=== PATIENT | male | born 1985 | race Caucasian/White ===

== ENCOUNTER 2023-11-25 10:48 | Outpatient (CLI) | payer OTHER, SELFPAY | END 2023-11-25 10:49 | disposition home or self-care (01) | LOC: NFLDUCREF 10:48 | PROVIDERS: PCP Physician Assistant; Visit Provider Physician Assistant | DX: L03.115 Cellulitis of right lower limb (principal) | CPT/HCPCS: 87070; 87186 ==

== ENCOUNTER 2024-10-11 13:37 | Emergency (ER) | payer OTHER, SELFPAY ==
--- OUTSIDE RECORDS SUMMARY | 2024-10-11 13:39 | XMS_ITS | Encounter Summary ---
Author Organization [place] Address [facility] [place] [address] Care Team Providers Care Editor In Chief Name Role Phone No Ref-Primary, Physician Primary Care Provider Encounter Details Date Type Department Care Team (Latest Contact Info) Description 09/12/2024 Travel Social History Tobacco Use Types Packs/Day Years Used Date Smoking Tobacco: Never Assessed Adolescent Education Answer Date Record ed Getting School Help Needed Not on file 02/04 Food Insecurity Answer Date Recorded Within the past 12 months, d id you worry that your food would run out before you got money to buy more? No 09/12/2024 Within the past 12 months, d id the food you bought just not last and you didn t have money to get more? No 09/12/2024 Housing Stability Answer Date Recorded Do you have housing? (Housin g is defined as stable permanent housing and does not include staying ouside in a car, in a tent, in an abandoned building, in an overnight retirement, or couch-surfing.) Yes 09/12/2024 Are you worried about losing your housing? No 09/12/2024 Financial Resource Strain Answer Date R ecorded Within the past 12 months, h ave you or your family members you live with been unable to get utilities (heat, electricity) when it was really needed? Yes 09/12/2024 Transportation Needs Answer Date Record ed Within the past 12 months, h as lack of transportation kept you from medical appointments, getting your medicines, non-medical meetings or appointments, work, or from getting things that you need? No 09/12/2024 Interpersonal Safety Answer Date Record ed Do you feel physically and e motionally safe where you currently live? Yes 09/12/2024 Within the past 12 months, h ave you been hit, slapped, kicked or otherwise physically hurt by someone? No 09/12/2024 Within the past 12 months, h ave you been humiliated or emotionally abused in other ways by your partner or ex-partner? No 09/12/2024 Sex and Gender Information Value Date Recorded Sex Assigned at Not on file Legal Sex Male 3:41 AM [employer] Gender Identity Not on file Sexual Orientation Not on file documented as of this encounter Plan of Treatment Not on file documented as of this encounter Visit Diagnoses Not on filedocumented in this encounter Additional Health Concerns Infection Onset Date Last Indicated Resolved Time Rule Out COVID-19 09/12/2024 09/12/2024 09/12/2024 2:23 PM [employer] Influenza 09/12/2024 09/12/2024 09/19/2024 11:4 1 PM [employer] documented as of this encounter Care Teams Editor In Chief Relationship Specialty Start Date End Date No Ref-Primary, Physician PCP - General 02/05/24 documented as of this encounter
--- OUTSIDE RECORDS SUMMARY | 2024-10-11 13:39 | XMS_ITS | Encounter Summary ---
Author Organization [facility] Address [address] [place] [id number] Care Team Providers Care Journeyman Lineman Name Role Phone No Ref-Primary, Physician Primary Care Provider Reason for Visit * Reason Comments Shortness of Breath * Auth/Cert (Routine) Specialty Diagnoses / Procedures Referred By Toro t Referred To Contact Med Surg Diagnoses SOB (shortness of breath) Influenza A Hypoxia Community acquired bacterial pneumonia [facility] [address] [facility] [address] [place] [address] Phone: tel: fax: Referral ID Status Reason Start Date Expiration Date Visits Re quested Visits Authorized [id number] 1 1 Encounter Details Date Type Department Care Team (Late st Contact Info) Description 09/12/2024 1:46 PM MARBLE CUTTER - 09/13/2024 1:15 PM MARBLE CUTTER Emergency [facility] [place] [address] [facility] [address] [place] [address] Smita Calderon MD [facility] [address] [place], [place] [id number] Sinan Mcghee MD [address] [place], [place] [id number] Influenza A; Community acquired bacterial pneumonia; Hypoxia Discharge Disposition: Home or Self Care Social History Tobacco Use Types Packs/Day Years Used Date Smoking Tobacco: Never Assessed Adolescent Education Answer Date Record ed Getting School Help Needed Not on file 06/28 /2024 Food Insecurity Answer Date Recorded Within the past 12 months, d id you worry that your food would run out before you got money to buy more? No 09/12/2024 Within the past 12 months, d id the food you bought just not last and you didn t have money to get more? No 09/12/2024 Housing Stability Answer Date Recorded Do you have housing? (Cyrus gomez is defined as stable permanent housing and does not include staying ouside in a car, in a tent, in an abandoned building, in an overnight fci, or couch-surfing.) Yes 09/12/2024 Are you worried [...] on file Legal Sex Male 3:41 AM MARBLE CUTTER Gender Identity Not on file Sexual Orientation Not on file documented as of this encounter Last Filed Vital Signs Vital Sign Reading Time Taken Comments Blood Pressure 134/88 09/13/2024 6:17 AM MARBLE CUTTER Pulse 74 09/13/2024 6:17 AM MARBLE CUTTER Temperature 37 C (98.6 F) 09/13/2024 6:17 AM MARBLE CUTTER Respiratory Rate 18 09/13/2024 6:17 AM MARBLE CUTTER Oxygen Saturation 95% 09/13/2024 6:17 AM MARBLE CUTTER Inhaled Oxygen Concentration - - Weight 115.8 kg (255 lb 4.7 oz) 09/13/2024 6:22 AM MARBLE CUTTER Height 188 cm (6' 2) 09/12/2024 1:18 PM MARBLE CUTTER Body Mass Index 32.78 09/12/2024 1:18 PM MARBLE CUTTER documented in this encounter Discharge Summaries * Sinan Mcghee MD - 09/13/2024 10:38 AM CST Images from the original note were not included. [facility] Discharge Summary Hospitalist Date of Admission: 09/12/2024 Date of Discharge: 09/13/2024 Discharging Provider: Sinan Mcghee MD Date of Service (when I saw the patient): 09/13/24 Discharge Diagnoses #Mildly acute hypoxemic respiratory failure secondary to influenza A and probable superimposed CAP #Obesity Hospital Course Ronny Munguia is a 39 year old male with a past medical history of obesity who presents with shortness of breath. #Acute hypoxemic respiratory failure secondary to influenza A and probable superimposed CAP: Patient tells me he started to have shortness of breath, cough, myalgias and fevers on 09/08. He tells me his children with whom he lives had similar symptoms. He denies any chest pain. No nausea vomiting. He denies any underlying lung disease. He is not on any prescription medications. He denies any nausea or vomiting. No diarrhea. He has been eating and drinking. He denies any leg swelling. He did not get his flu shot. -ED, patient with low-grade fever of 99.1, tachycardic to 103 and normotensive to mildly hypertensive. Needing 2 L via nasal cannula to maintain saturations. His CBC did not show leukocytosis. BMP unremarkable. High-sensitivity troponin negative x 2. Lactic acid within normal limits. VBG 7.44/45. His influenza A was positive. Chest x-ray showed patchy infiltrates in the mid and lower lungs bilaterally typical of bilateral pneumonia. He was given ceftriaxone, azithromycin, Tamiflu along with methylprednisolone, DuoNeb and IV magnesium. -His D-dimer was positive at 0.75. CT PE negative for PE but did show bilateral pneumonia. Procal equivocal. -Pt treated with tamiflu and started on ceftr/azithro. He improved symptomatically. He ambulated around room without issues. He did not have high fevers or worsening hypoxemia. He was weaned to room air. -He will discharge on course of tamiflu. Continue ceftin and azithro on discharge. No wheezing on exam. Prn albuterol ordered on discharge for SOB but held off on steroids as no asthma, COPD at baseline. Cough medicines also prescribed. -Follow up with PCP. Return instructions provided. -Advised to stop vaping. #Obesity: Complicates cares Sinan Mcghee MD Pending Results These results will be followed up by Hospital medicine Unresulted Labs Ordered in the Past 30 Days of this Admission Date and Time Order Name Status Description 09/12/2024 3:11 PM Blood Culture Peripheral Blood Preliminary 09/12/2024 3:11 PM Blood Culture Peripheral Blood Preliminary Code Status Full Code Primary Care Physician Physician No Ref-Primary Constitutional: Young male, obese. No tachypnea today. Comfortable. HEENT: Normocephalic, MMM, no elevation of JVD noted Respiratory: No tachypnea. No wheeze. Some coarseness at bilateral bases. Cardiovascular: Regular, non-tachy. No murmur GI: Obese, BS+, NT, ND, no rebound or guarding Lymph/Hematologic: No bruising. No cervical LAD Skin: No rash Musculoskeletal: Nl Tone, No edema noted Neurologic: A&Ox3, Answers appropriately. CNII-XII intact. Moves all extremities. No tremor Psychiatric: Calm Discharge Disposition Discharged to home Condition at discharge: Stable Consultations This Hospital Stay None Time Spent on this Encounter I, Sinan Mcghee MD, personally saw the patient today and spent greater than 30 minutes discharging this patient. Discharge Orders Reason for your hospital stay You were hospitalized for influenza and probable bacterial pneumonia. You will complete course of tamiflu and antibiotics on discharge. I did prescribe as needed albuterol inhaler along with cough medicines as well. You should follow up with your PCP next week. Return to ED with worsening shortnessof breath, weakness, lightheadedness, chest pain. Follow-up and recommended labs and tests Follow up with primary care provider, Physician No Ref-Primary, within 7 days for hospital follow- up. The following labs/tests are recommended: CBC and BMP. Activity Your activity upon discharge: activity as tolerated Full Code Diet Follow this diet upon discharge: Current Diet:Orders Placed This Encounter Combination Diet Regular Diet Adult Discharge Medications Current Discharge Medication List START taking these medications Details albuterol (PROAIR HFA/PROVENTIL HFA/VENTOLIN HFA) 108 (90 Base) MCG/ACT inhaler Inhale 2 puffs intothe lungs every 6 hours as needed for shortness of breath, wheezing or cough. Qty: 18 g, Refills: 0 Comments: Pharmacy may dispense brand covered by insurance (Proair, or proventil or ventolin or generic albuterol inhaler) Associated Diagnoses: Influenza A azithromycin (ZITHROMAX) 250 MG tablet Take 1 tablet (250 mg) by mouth daily for 4 days. Qty: 4 tablet, Refills: 0 Associated Diagnoses: Community acquired bacterial pneumonia benzonatate (TESSALON) 100 MG capsule Take 1 capsule (100 mg) by mouth 3 times daily as needed for cough. Qty: 14 capsule, Refills: 0 Associated Diagnoses: Influenza A cefuroxime (CEFTIN) 500 MG tablet Take 1 tablet (500 mg) by mouth 2 times daily for 7 days. Qty: 14 tablet, Refills: 0 Associated Diagnoses: Community acquired bacterial pneumonia guaiFENesin (MUCINEX) 600 MG 12 hr tablet Take 1 tablet (600 mg) by mouth 2 times daily for 7 days. Qty: 14 tablet, Refills: 0 Associated Diagnoses: Influenza A CONTINUE these medications which have CHANGED Details oseltamivir (TAMIFLU) 75 MG capsule Take 1 capsule (75 mg) by mouth 2 times daily for 4 days. Qty: 8 capsule, Refills: 0 Associated Diagnoses: Influenza A Allergies No Known Allergies Data Most Recent 3 CBC's: Recent Labs Lab Test 09/13/24 0737 09/12/24 1411 WBC 6.2 6.7 HGB 13.5 14.5 MCV 77* 77* PLT 303 256 Most Recent 3 BMP's: Recent Labs Lab Test 09/13/24 0737 09/12/24 1411 NA 135 135 POTASSIUM 3.8 4.0 CHLORIDE 97* 94* CO2 23 27 BUN 15.2 15.1 CR 0.75 0.95 ANIONGAP 15 14 ARNOLDO 8.7* 8.8 GLC 129* 122* Most Recent 2 LFT's:No lab results found. Most Recent INR's and Anticoagulation Dosing History: Anticoagulation Dose History No data to display Most Recent 3 Troponin's:No lab results found. Most Recent Cholesterol Panel:No lab results found. Most Recent 6 Bacteria Isolates From Any Culture (See EPIC Reports for Culture Details):No lab results found. Most Recent TSH, T4 and A1c Labs:No lab results found. LE CUTTER documented in this encounter Medications at Time of Discharge albuterol (PROAIR HFA/PROVENTIL HFA/VENTOLIN HFA) 108 (90 Base) MCG/ACT inhalerIndicatio ns:Influenza A Inhale 2 puffs into the lungs every 6 hours as needed for shortness of breath, wheezing or cough. 18 g 09/13/2024 azithromycin (ZITHROMAX) 250 MG tabletIndication s:Community Acquired Pneumonia Take 1 tablet (250 mg) by mouth daily for 4 days. 4 tablet 09/13/2024 5 benzonatate (TESSALON) 100 MG capsuleIndicatio ns:Influenza A Take 1 capsule (100 mg) by mouth 3 times daily as needed for cough. 14 capsule 09/13/2024 5 cefuroxime (CEFTIN) 500 MG tabletIndication s:Community acquired bacterial pneumonia Take 1 tablet (500 mg) by mouth 2 times daily for 7 days. 14 tablet 09/13/2024 5 guaiFENesin (MUCINEX) 600 MG 12 hr tabletIndication s:Influenza A Take 1 tablet (600 mg) by mouth 2 times daily for 7 days. 14 tablet 09/13/2024 5 oseltamivir (TAMIFLU) 75 MG capsuleIndicatio ns:Influenza A Take 1 capsule (75 mg) by mouth 2 times daily for 4 days. 8 capsule 09/13/2024 5 documented as of this encounter Progress Notes * Dena Chanel RN - 09/12/2024 9:32 PM CST 09/12/242058 Skin Skin WDL X;moisture;integrity;temperature;color Skin Color redness blanchable Skin Temperature cold Skin Integrity peeling/scaling;cracked;scab Cracked Right;Fore Arm Peeling Right;Left;Heel Redness blanchable location Right;Left;Foot Scab Other (Comment) (scattered) Device Skin Interventions Taken No adjustments needed Admitted/transferred from: 2 RN full skin assessment completed by Dena Chanel RN and Cam Cordova . Skin assessment finding: issues found Redness on feet, dryness and peeling on feet, scattered scapson legs Interventions/actions: other None Will continue to monitor. LE CUTTER documented in this encounter H&P Notes * Sinan Mcghee MD - 09/12/2024 4:00 PM CST [facility] History and Physical Hospitalist Date of Admission: 09/12/2024 Assessment & Plan Ronny Munguia is a 39 year old male with a past medical history of obesity who presents with shortness of breath. #Acute hypoxemic respiratory failure secondary to influenza A and probable superimposed CAP: Patient tells me he started to have shortness of breath, cough, myalgias and fevers on 09/08. He tells me his children with whom he lives had similar symptoms. He denies any chest pain. No nausea vomiting. He denies any underlying lung disease. He is not on any prescription medications. He denies any nausea or vomiting. No diarrhea. He has been eating and drinking. He denies any leg swelling. -ED, patient with low-grade fever of 99.1, tachycardic to 103 and normotensive to mildly hypertensive. Needing 2 L via nasal cannula to maintain saturations. His CBC did not show leukocytosis. BMP unremarkable. High-sensitivity troponin negative x 2. Lactic acid within normal limits. VBG 7.44/45. His influenza A was positive. Chest x-ray showed patchy infiltrates in the mid and lower lungs bilaterally typical of bilateral pneumonia. He was given ceftriaxone, azithromycin, Tamiflu along with methylprednisolone, DuoNeb and IV magnesium. -His D-dimer was positive at 0.75. Follow up CT PE to r/o PE -Treat with tamiflu. -Continue ceftriaxone and azithro for now. Added on procal. -Duonebs prn. He does not have any clear wheezing on exam. Holding off on further steroids or scheduled nebs. #Obesity: Complicates cares DVT Prophylaxis: Pneumatic Compression Devices Code Status: Full Code Medically Ready for Discharge: Anticipated in 2-4 Days Sinan Mcghee MD Primary Care Physician Physician No Ref-Primary Chief Complaint SOB, cough History is obtained from the patient, patient's chart and d/w ER physician History of Present Illness Ronny Munguia is a 39 year old male with a past medical history of obesity who presents with shortness of breath. Patient tells me he started to have shortness of breath, cough, myalgias and fevers on 09/08. He tells me his children with whom he lives had similar symptoms. He denies any chest pain. No nausea vomiting. He denies any underlying lung disease. He is not on any prescription medications. He denies any nausea or vomiting. No diarrhea. He has been eating and drinking. He denies any leg swelling. In the ED, patient with low-grade fever of 99.1, tachycardic to 103 and normotensive to mildly hypertensive. Needing 2 L via nasal cannula to maintain saturations. His CBC did not show leukocytosis. BMP unremarkable. High- sensitivity troponin negative x 2. Lactic acid within normal limits. VBG 7.44/ 45. His influenza A was positive. Chest x-ray showed patchy infiltrates in the mid and lower lungs bilaterally typical of bilateral pneumonia. He was given ceftriaxone, azithromycin, Tamiflu along with methylprednisolone, DuoNeb and IV magnesium. Past Medical History Patient denies any medical history Past Surgical History Patient denies any surgeries Prior to Admission Medications None Allergies No Known Allergies Social History He is a non-smoker but does vape. Nondrinker. Lives at home with his 3 kids. Family History Reviewed-noncontributory Review of Systems The 10 point Review of Systems is negative other than noted in the HPI or here. Physical Exam Temp: 99.1 ??F (37.3 ??C) Temp src: Temporal BP: (!) 139/91 Pulse: 89 Resp: 20 SpO2: 94 % O2 Device: None (Room air) Oxygen Delivery: 2 LPM Vital Signs with Ranges Temp: [99.1 ??F (37.3 ??C)] 99.1 ??F (37.3 ??C) Pulse: [89-103] 89 Resp: [20-44] 20 BP: (139-153)/(91-100) 139/91 SpO2: [93 %-97 %] 94 % 271 lbs 6.18 oz Constitutional: Young male, obese. Mild tachypnea. He is conversational and appropriate. HEENT: Normocephalic, MMM, no elevation of JVD noted Respiratory: Mild tachypnea, somewhat coarse bilaterally at the bases. He has no wheezing. Cardiovascular: Tachycardic, regular, no murmur GI: Obese, BS+, NT, ND, no rebound or guarding Lymph/Hematologic: No bruising. No cervical LAD Skin: No rash Musculoskeletal: Nl Tone, No edema noted Neurologic: A&Ox3, Answers appropriately. CNII-XII intact. Moves all extremities. No tremor Psychiatric: Calm Data Data reviewed today: I personally reviewed Recent Labs Lab 09/12/24 1411 WBC 6.7 HGB 14.5 MCV 77* PLT 256 NA 135 POTASSIUM 4.0 CHLORIDE 94* CO2 27 BUN 15.1 CR 0.95 ANIONGAP 14 ARNOLDO 8.8 GLC 122* Recent Results (from the past 24 hours) XR Chest 2 Views Narrative EXAM: XR CHEST 2 VIEWS LOCATION: [facility] DATE: 09/12/2024 INDICATION: shortness of breath, tachypneic COMPARISON: None. Impression IMPRESSION: Patchy infiltrates in the mid and lower lungs bilaterally typical of bilateral pneumonia. Clinically Significant Risk Factors Present on Admission # Hypochloremia: Lowest Cl = 94 mmol/L in last 2 days, will monitor as appropriate # Obesity: Estimated body mass index is 34.84 kg/m?? as calculated from the following: Height as of this encounter: 1.88 m (6' 2). Weight as of this encounter: 123.1 kg (271 lb 6.2 oz). LE CUTTER LE CUTTER documented in this encounter ED Notes * [place] RN - 09/12/2024 5:41 PM CST Report given to Ann LOPEZ LE CUTTER * Primo Resendiz RN - 09/12/2024 5:30 PM CST Bed: ED18 Expected date: Expected time: Means of arrival: Comments: ED 12 LE CUTTER * Amira Ontiveros RN - 09/12/2024 3:44 PM CST [facility] ED Nurse Handoff Report ED Chief complaint: Shortness of Breath . ED Diagnosis: Final diagnoses: None Allergies: No Known Allergies Code Status: Full Code Activity level - Baseline/Home: independent. Activity Level - Current: standby. Lift room needed: No. Bariatric: No Roustabout Pusher Needed: No Isolation: Yes. Infection: Not Applicable Influenza. Respiratory status: Room air Vital Signs (within 30 minutes): Vitals: 09/12/24 1320 09/12/24 1445 09/12/24 1500 09/12/24 1505 BP: (!) 153/100 (!) 145/93 (!) 145/93 Pulse: 103 96 89 95 Resp: 30 (!) 44 20 20 Temp: 99.1 ??F (37.3 ??C) TempSrc: Temporal SpO2: 93% 95% 97% 96% Weight: Height: Cardiac Rhythm: , Pain level: Patient confused: No. Patient Falls Risk: nonskid shoes/slippers when out of bed. Elimination Status: Has voided Patient Report - Initial Complaint: SOB. Focused Assessment: Chief Complaint: Shortness of Breath HPI Ronny Munguia is a 39 year old male who presents with shortness of breath. The patient reports that he has been experiencing a cough and shortness of breath since 09/08. The patient was seen on the day of onset at urgent care and was diagnosed with influenza. He was sent home with viral medication.The patient's symptoms have only worsened since discharge. He was seen in urgent care again today where he received 2 albuterol nebulizer treatments which didn't relieve his shortness of breath. He was prescribed a zpack, an albuterol inhaler, and low dose of prednisone then instructed to come hereif his shortness of breath worsened. Upon arrival to the ED, the patient's oxygen saturation was measured at 93% at room air. Denies leg swelling, recent traveling, and history of DVT. No history of asthma, COPD, or other respiratory illnesses. Abnormal Results: Labs Ordered and Resulted from Time of ED Arrival to Time of ED Departure BASIC METABOLIC PANEL - Abnormal Result Value Sodium 135 Potassium 4.0 Chloride 94 (*) Carbon Dioxide (CO2) 27 Anion Gap 14 Urea Nitrogen 15.1 Creatinine 0.95 GFR Estimate >90 Calcium 8.8 Glucose 122 (*) INFLUENZA A/B, RSV AND SARS-COV2 PCR - Abnormal Influenza A PCR Positive (*) Influenza B PCR Negative RSV PCR Negative SARS CoV2 PCR Negative D DIMER QUANTITATIVE - Abnormal D-Dimer Quantitative 0.75 (*) CBC WITH PLATELETS AND DIFFERENTIAL - Abnormal WBC Count 6.7 RBC Count 5.61 Hemoglobin 14.5 Hematocrit 43.1 MCV 77 (*) MCH 25.8 (*) MCHC 33.6 RDW 13.6 Platelet Count 256 % Neutrophils 79 % Lymphocytes 9 % Monocytes 10 % Eosinophils 0 % Basophils 0 % Immature Granulocytes 2 NRBCs per 100 WBC 0 Absolute Neutrophils 5.3 Absolute Lymphocytes 0.6 (*) Absolute Monocytes 0.7 Absolute Eosinophils 0.0 Absolute Basophils 0.0 Absolute Immature Granulocytes 0.1 Absolute NRBCs 0.0 TROPONIN T, HIGH SENSITIVITY - Normal Troponin T, High Sensitivity 8 RBC AND PLATELET MORPHOLOGY RBC Morphology Confirmed RBC Indices Platelet Assessment Value: Automated Count Confirmed. Platelet morphology is normal. TROPONIN T, HIGH SENSITIVITY LACTIC ACID WHOLE BLOOD BLOOD GAS VENOUS BLOOD CULTURE BLOOD CULTURE XR Chest 2 Views Final Result IMPRESSION: Patchy infiltrates in the mid and lower lungs bilaterally typical of bilateral pneumonia. CT Chest Pulmonary Embolism w Contrast (Results Pending) Treatments provided: see MAR, imaging, labs Family Comments: none here, kids are at home with grandpa OBS brochure/video discussed/provided to patient: Yes ED Medications: Medications ipratropium - albuterol 0.5 mg/2.5 mg/3 mL (DUONEB) neb solution 3 mL (has no administration in time range) cefTRIAXone (ROCEPHIN) 2 g vial to attach to NS 100 ml bag for ADULTS or NS 50 ml bag for PEDS (2 gIntravenous $New Bag 09/12/24 8067) methylPREDNISolone Na Suc (solu-MEDROL) injection 125 mg (125 mg Intravenous $Given 09/12/24 992) magnesium sulfate 2 g in 50 mL sterile water intermittent infusion (2 g Intravenous $New Bag [id number]) oseltamivir (TAMIFLU) capsule 75 mg (75 mg Oral $Given 09/12/24 1416) azithromycin (ZITHROMAX) tablet 500 mg (500 mg Oral $Given 09/12/24 1537) Drips infusing: Yes For the majority of the shift this patient was Green. Interventions performed were n/a. Sepsis treatment initiated: No Cares/treatment/interventions/medications to be completed following ED care: IV ABX ED Nurse Name: Amira Ontiveros RN 3:44 PM LE CUTTER * Smita Calderon MD - 09/12/2024 1:47 PM CST History Chief Complaint: Shortness of Breath HPI Ronny Munguia is a 39 year old male who presents with shortness of breath. The patient reports that he has been experiencing a cough and shortness of breath since 09/08. The patient was seen on the day of onset at urgent care and was diagnosed with influenza. He was sent home with viral medication.The patient's symptoms have only worsened since discharge. He was seen in urgent care again today where he received 2 albuterol nebulizer treatments which didn't relieve his shortness of breath. He was prescribed a zpack, an albuterol inhaler, and low dose of prednisone then instructed to come hereif his shortness of breath worsened. Upon arrival to the ED, the patient's oxygen saturation was measured at 93% at room air. Denies leg swelling, recent traveling, and history of DVT. No history of asthma, COPD, or other respiratory illnesses. Review of External notes Medications: No current outpatient medications on file. Past Medical History: No past medical history on file. Past Surgical History: No past surgical history on file. Physical Exam Patient Vitals for the past 24 hrs: BP Temp Temp src Pulse Resp SpO2 Height Weight 09/12/24 1536 -- -- -- 89 -- 94 % -- -- 09/12/24 1515 (!) 139/91 -- -- 90 -- 95 % -- -- 09/12/24 1505 -- -- -- 95 20 96 % -- -- 09/12/24 1500 (!) 145/93 -- -- 89 20 97 % -- -- 09/12/24 1445 (!) 145/93 -- -- 96 (!) 44 95 % -- -- 09/12/24 1320 (!) 153/100 99.1 ??F (37.3 ??C) Temporal 103 30 93 % -- -- 09/12/24 1318 -- -- -- -- -- -- 1.88 m (6' 2) 123.1 kg (271 lb 6.2 oz) Physical Exam Gen: alert Neck: normal ROM CV: RRR, 2+ distal pulses in all 4 extremities Chest: no tenderness over the chest wall Pulm: coarse breath sounds bilaterally, slight expiratory wheeze Abd: Soft, nontender Back: no evidence of injury MSK: no lower extremity edema, no calf tenderness Skin: no rash Neuro: alert, appropriate conversation and interaction Emergency Department Course ECG: ECG taken at 1339, ECG read at 1413 Normal sinus rhythm Rate 88 bpm. HI interval 144 ms. QRS duration 92 ms. QT/QTc 358/433 ms. P-R-T axes 10 31 19. Imaging: CT Chest Pulmonary Embolism w Contrast Final Result IMPRESSION: 1. Multifocal pneumonia. 2. No pulmonary embolus. XR Chest 2 Views Final Result IMPRESSION: Patchy infiltrates in the mid and lower lungs bilaterally typical of bilateral pneumonia. Laboratory: Labs Ordered and Resulted from Time of ED Arrival to Time of ED Departure BASIC METABOLIC PANEL - Abnormal Result Value Sodium 135 Potassium 4.0 Chloride 94 (*) Carbon Dioxide (CO2) 27 Anion Gap 14 Urea Nitrogen 15.1 Creatinine 0.95 GFR Estimate >90 Calcium 8.8 Glucose 122 (*) INFLUENZA A/B, RSV AND SARS-COV2 PCR - Abnormal Influenza A PCR Positive (*) Influenza B PCR Negative RSV PCR Negative SARS CoV2 PCR Negative D DIMER QUANTITATIVE - Abnormal D-Dimer Quantitative 0.75 (*) CBC WITH PLATELETS AND DIFFERENTIAL - Abnormal WBC Count 6.7 RBC Count 5.61 Hemoglobin 14.5 Hematocrit 43.1 MCV 77 (*) MCH 25.8 (*) MCHC 33.6 RDW 13.6 Platelet Count 256 % Neutrophils 79 % Lymphocytes 9 % Monocytes 10 % Eosinophils 0 % Basophils 0 % Immature Granulocytes 2 NRBCs per 100 WBC 0 Absolute Neutrophils 5.3 Absolute Lymphocytes 0.6 (*) Absolute Monocytes 0.7 Absolute Eosinophils 0.0 Absolute Basophils 0.0 Absolute Immature Granulocytes 0.1 Absolute NRBCs 0.0 BLOOD GAS VENOUS - Abnormal pH Venous 7.44 (*) pCO2 Venous 45 pO2 Venous 17 (*) Bicarbonate Venous 31 (*) Base Excess/Deficit Venous 5.3 (*) FIO2 2 Oxyhemoglobin Venous 24 (*) O2 Sat, Venous 24.6 (*) TROPONIN T, HIGH SENSITIVITY - Normal Troponin T, High Sensitivity 8 TROPONIN T, HIGH SENSITIVITY - Normal Troponin T, High Sensitivity 9 LACTIC ACID WHOLE BLOOD - Normal Lactic Acid 1.6 RBC AND PLATELET MORPHOLOGY RBC Morphology Confirmed RBC Indices Platelet Assessment Value: Automated Count Confirmed. Platelet morphology is normal. PROCALCITONIN BLOOD CULTURE BLOOD CULTURE ED Course as of 09/12/24 1616 Mon Sep 12, 2024 1355 I obtained history and performed physical exam as noted above. [address] Mcghee, of the hospitalist team, regarding the patient. They accepted the patient for admission. Interventions: Medications ipratropium - albuterol 0.5 mg/2.5 mg/3 mL (DUONEB) neb solution 3 mL (has no administration in time range) methylPREDNISolone Na Suc (solu-MEDROL) injection 125 mg (125 mg Intravenous $Given 09/12/24 1416) magnesium sulfate 2 g in 50 mL sterile water intermittent infusion (2 g Intravenous $New Bag 416) oseltamivir (TAMIFLU) capsule 75 mg (75 mg Oral $Given 09/12/24 1416) cefTRIAXone (ROCEPHIN) 2 g vial to attach to NS 100 ml bag for ADULTS or NS 50 ml bag for PEDS (2 gIntravenous $New Bag 09/12/24 153) azithromycin (ZITHROMAX) tablet 500 mg (500 mg Oral $Given 09/12/24 1537) iopamidol (ISOVUE-370) solution 500 mL (88 mLs Intravenous $Given 09/12/24 1548) CT scan flush (100 mLs Intravenous $Given 09/12/24 1548) Impression & Plan Independent Interpretation: Patchy bilateral infiltrates Medical Decision Making: Patient presents for evaluation of shortness of breath in the setting of known influenza A. Received some labs prior to arrival at urgent care. On my initial exam, patient has coarse breath sounds and slight wheezing however I did also consider complications such as pneumonia or PE. D-dimer was obtained and elevated. CT chest pulmonary angiogram showed multifocal pneumonia however no PE. Patient feeling improved after Solu-Medrol neb and magnesium. Wheezing much improved. Patient comfortable onnasal cannula O2. IV antibiotics ordered for complicating pneumonia.. Discussed with Dr. Mcghee and will admit for care of pneumonia and hypoxia Disposition: Discharge Diagnosis: ICD-10-CM 1. Influenza A J10.1 2. Community acquired bacterial pneumonia J15.9 3. Hypoxia R09.02 Discharge Medications: New Prescriptions No medications on file Scribe Disclosure: Bennett Thacker, am serving as a scribe at 2:27 PM on 09/12/2024 to document services personally performed by Smita Calderon MD based on my observations and the provider's statements tome. Smita Calderon September 12, 2024 Smita Calderon MD 09/12/24 1617 LE CUTTER * Yulisa Kapoor RN - 09/12/2024 1:20 PM CST Pt arrives with complaint of shortness of breath. Was at where he was prescribed antibiotics, analbuterol inhaler, low dose steroids, and told to come here if shortness of breath worsens. Patientoxygen 93% room air, tachypneic. Pt was given 2 nebs at the clinic as well, reports he was wheezingprior to this. A&OX4. LE CUTTER documented in this encounter Miscellaneous Notes * Plan of Care - Ericka Rodriguez RN - 09/13/2024 1:15 PM CST A&Ox4. VSS. On RA. Afebrile. Denies pain, N/V or SOB. PIVs removed. Discharge instructions given verbalized understanding. Meds filled & given to pt. Work note given. Discharge Note Patient discharged to home via private vehicle accompanied by none. IV: Discontinued Prescriptions filled and given to patient/family. Belongings reviewed and sent with patient. Home medications returned to patient: NA Equipment sent with: N/A. patient verbalizes understanding of discharge instructions. AVS given to patient. Additional education completed? Antibiotic completion Goal Outcome Evaluation: Problem: Adult Inpatient Plan of Care Goal: Absence of Hospital-Acquired Illness or Injury Intervention: Identify and Manage Fall Risk Recent Flowsheet Documentation Taken 09/13/2024 0854 by Ericka Rodriguez RN Safety Promotion/Fall Prevention: clutter free environment maintained lighting adjusted patient and family education room near nurse's station room organization consistent safety round/check completed treat reversible contributory factors Intervention: Prevent Skin Injury Recent Flowsheet Documentation Taken 09/13/2024 0854 by Ericka Rodriguez RN Body Position: position changed independently Taken 09/13/2024 0853 by Ericka Rodriguez RN Body Position: position changed independently Intervention: Prevent Infection Recent Flowsheet Documentation Taken 09/13/2024 0854 by Ericka Rodriguez RN Infection Prevention: cohorting utilized hand hygiene promoted rest/sleep promoted Problem: Infection Goal: Absence of Infection Signs and Symptoms Intervention: Prevent or Manage Infection Recent Flowsheet Documentation Taken 09/13/2024 0854 by Ericka Rodriguez RN Isolation Precautions: droplet precautions maintained LE CUTTER * Plan of Care - Kyle Merchant RN - 09/13/2024 5:12 AM CST For vital signs and complete assessments, please see documentation flowsheets. [id number] Pertinent assessments: Pt A&Ox4. Ind in room. On RA. Afebrile. Elevated BP, other VSS. Denies pain, nausea, & SOB. PIV saline locked. Major Shift Events: none Treatment Plan: Droplet precautions. Symptom management. IV Rocephin. Oral Zithromax & Tamiflu.Discharge TBD. Bedside Nurse: Kyle Merchant RN Problem: Adult Inpatient Plan of Care Goal: Plan of Care Review Description: The Plan of Care Review/Shift note should be completed every shift. The Outcome Evaluation is a brief statement about your assessment that the patient is improving, declining, or no change. This information will be displayed automatically on your shift note. Outcome: Progressing Flowsheets (Taken 09/13/2024 0511) Outcome Evaluation: On RA. PIV saline locked. Elevated BP, other VSS. Plan of Care Reviewed With: patient Overall Patient Progress: improving Goal: Patient-Specific Goal (Individualized) Description: You can add care plan individualizations to a care plan. Examples of Individualizationmight be: Parent requests to be called daily at 9am for status, I have a hard time hearing out of my right ear, or Do not touch me to wake me up as it startles me. Outcome: Progressing Goal: Absence of Hospital-Acquired Illness or Injury Outcome: Progressing Intervention: Identify and Manage Fall Risk Recent Flowsheet Documentation Taken 09/13/202452 by Kyle Merchant, RN Safety Promotion/Fall Prevention: clutter free environment maintained lighting adjusted patient and family education room near nurse's station room organization consistent safety round/check completed treat reversible contributory factors Intervention: Prevent Skin Injury Recent Flowsheet Documentation Taken 09/13/202452 by Kyle Merchant RN Body Position: position changed independently Intervention: Prevent Infection Recent Flowsheet Documentation Taken 09/13/202452 by Kyle Merchant RN Infection Prevention: cohorting utilized hand hygiene promoted rest/sleep promoted Goal: Optimal Comfort and Wellbeing Outcome: Progressing Goal: Readiness for Transition of Care Outcome: Progressing Problem: Infection Goal: Absence of Infection Signs and Symptoms Outcome: Progressing Intervention: Prevent or Manage Infection Recent Flowsheet Documentation Taken 09/13/202452 by Kyle Merchant RN Isolation Precautions: droplet precautions maintained Goal Outcome Evaluation: Plan of Care Reviewed With: patient Overall Patient Progress: improvingOverall Patient Progress: improving Outcome Evaluation: On RA. PIV saline locked. Elevated BP, other VSS. LE CUTTER * Care Plan - Dena Chanel RN - 09/12/2024 6:15 PM CST [facility] ED Boarding Nurse Handoff Addendum Report: Date/time: 09/12/2024, 6:16 PM Activity Level: standby Fall Risk: No Active Infusions: None Current Meds Due: Review MAR Current care needs: None Oxygen requirements (liters/min and/or FiO2): None Respiratory status: Room air Vital signs (within last 30 minutes): Vitals: 09/12/24 1515 09/12/24 1536 09/12/24 1540 09/12/24 1809 BP: (!) 139/91 (!) 155/86 BP Location: Right arm Pulse: 90 89 91 94 Resp: (!) 37 18 Temp: 98.1 ??F (36.7 ??C) TempSrc: Oral SpO2: 95% 94% 96% 93% Weight: Height: BP (!) 155/86 (BP Location: Right arm) Pulse 94 Temp 98.1 ??F (36.7 ??C) (Oral) Resp 18 Ht 1.88 m (6' 2) Wt 123.1 kg (271 lb 6.2 oz) SpO2 93% BMI 34.84 kg/m?? Focused assessment within last 30 minutes: A&OX4, VSS on RA. SOB, LS diminished. Influenza A positive, droplet precautions initiated. K/mag protocol. Tamiflu, IV abx. SBA. Regular diet. ED Boarding Nurse name: Viky Purcell RN RECEIVING UNIT ED HANDOFF REVIEW Above ED Nurse Handoff Report was reviewed: Yes Reviewed by: Dena Chanel RN on September 12, 2024 at 7:40 PM Kedar Tidwell called the ED to inform them the note was read: Yes LE CUTTER LE CUTTER * Pharmacy-Admission Medication History - Syed Linares, [facility] - 09/12/2024 4:30 PM CST Pharmacist Admission Medication History Admission medication history is complete. The information provided in this note is only as accurateas the sources available at the time of the update. Information Source(s): Patient and CareEverywhere/SureScripts via in-person Pertinent Information: patient reported having about one or two Tamiflu capsules left. Of note, patient was not able to black pickler his new meds (Z-pack, prednisone, and albuterol inhaler) from his pharmacy yet. Changes made to [employer] medication list: Added: Tamiflu Deleted: None Changed: None Allergies reviewed with patient and updates made in EHR: yes Medication History Completed By: Syed Linares RPH 09/12/2024 4:30 PM [employer] Med List Medication Sig Last Dose/Taking oseltamivir (TAMIFLU) 75 MG capsule Take 75 mg by mouth 2 times daily. 09/11/2024 LE CUTTER documented in this encounter Plan of Treatment Not on file documented as of this encounter Procedures Procedure Name Priority Date/Time Associated Diagnosis Comments MAGNESIUM Routine 09/13/2024 7:37 AM MARBLE CUTTER BASIC METABOLIC PANEL Routine 09/13/2024 7:37 AM MARBLE CUTTER CBC WITH PLATELETS Routine 09/13/2024 7: [address] CHEST PULMONARY EMBOLISM W CONTRAST STAT 09/12/2024 4:00 PM MARBLE CUTTER TROPONIN T, HIGH SENSITIVITY STAT 09/12/2024 3:20 PM MARBLE CUTTER PROCALCITONIN Add-On 09/12/2024 3:20 PM MARBLE CUTTER MAGNESIUM Add-On 09/12/2024 3:20 PM MARBLE CUTTER LACTIC ACID WHOLE BLOOD STAT 09/12/2024 3:20 PM MARBLE CUTTER BLOOD GAS VENOUS STAT 09/12/2024 3:20 PM MARBLE CUTTER BLOOD CULTURE STAT 09/12/2024 3:20 PM MARBLE CUTTER BLOOD CULTURE STAT 09/12/2024 3:20 PM MARBLE CUTTER EXTRA TUBE STAT 09/12/2024 2:11 PM MARBLE CUTTER EXTRA RED TOP TUBE STAT 09/12/2024 2: 11 PM MARBLE CUTTER EXTRA BLUE TOP TUBE STAT 09/12/2024 2 :11 PM MARBLE CUTTER RBC AND PLATELET MORPHOLOGY STAT 09/12/2024 2:11 PM MARBLE CUTTER CBC WITH PLATELETS AND DIFFERENTIAL STAT 09/12/2024 2:11 PM MARBLE CUTTER TROPONIN T, HIGH SENSITIVITY STAT 09/12/2024 2:11 PM MARBLE CUTTER CBC WITH PLATELETS & DIFFERENTIAL STAT 09/12/2024 2:11 PM MARBLE CUTTER D DIMER QUANTITATIVE STAT 09/12/2024 2:11 PM MARBLE CUTTER BASIC METABOLIC PANEL STAT 09/12/2024 2:11 PM MARBLE CUTTER XR CHEST 2 VIEWS STAT 09/12/2024 1:52 PM MARBLE CUTTER EKG 12-LEAD, TRACING ONLY STAT 09/12/2024 1:39 PM MARBLE CUTTER INFLUENZA A/B, RSV AND SARS-COV2 PCR STAT 09/12/2024 1:25 PM MARBLE CUTTER EKG CARDIAC - HIM SCAN 12:00 AM MARBLE CUTTER documented in this encounter Results * (ABNORMAL) Magnesium (09/13/2024 7:37 AM MARBLE CUTTER) [facility] Magnesium 2.7(H) 1.7 - 2.3 mg/dL 09/13/2024 8:14 AM [facility] LABORATORY Blood STRUCTURE OF LEFT HAND / Unknown Venipuncture / Unknown 09/13/2024 7:37 AM MARBLE CUTTER 09/13/2024 7:43 AM MARBLE CUTTER us Sinan Mcghee MD LAB - BLOOD ORDERABLES Final Res ult [facility] Acute Care Lab [address] Lab (1st floor, no room number) [place] [address], [facility] * (ABNORMAL) CBC with platelets (09/13/2024 7:37 AM MARBLE CUTTER) [facility] WBC Count 6.2 4.0 - 11.0 10e3/uL 09/13/2024 7:48 AM [facility]ORAT[facility] RBC Count 5.26 4.40 - 5.90 10e6/uL 09/13/2024 7:48 AM [facility] Hemoglobin 13.5 13.3 - 17.7 g/dL 09/13/2024 7:48 AM [facility] Hematocrit 40.4 40.0 - 53.0 % 09/13/2024 7:48 AM [facility] MCV 77(L) 78 - 100 fL 09/13/2024 7:48 AM [facility] MCH 25.7(L) 26.5 - 33.0 pg 09/13/2024 7:48 AM [facility] MCHC 33.4 31.5 - 36.5 g/dL 09/13/2024 7:48 AM [facility] RDW 13.5 10.0 - 15.0 % 09/13/2024 7:48 AM [facility] Platelet Count 303 150 - 450 10e3/uL 09/13/2024 7:48 AM [facility] Blood STRUCTURE OF LEFT HAND / Unknown Venipuncture / Unknown 09/13/2024 7:37 AM MARBLE CUTTER 09/13/2024 7:43 AM MARBLE CUTTER us Sinan Mcghee MD LAB - BLOOD ORDERABLES Final Res ult LABORATORY [facility] Acute Care Lab [address] [facility] Lab (1st floor, no room number) [place] [address], [facility] * (ABNORMAL) Basic metabolic panel (09/13/2024 7:37 AM MARBLE CUTTER) [facility] Sodium 135 135 - 145 mmol/L 09/13/2024 8:14 AM [facility] Potassium 3.8 3.4 - 5.3 mmol/L 09/13/2024 8:14 AM [facility] Chloride 97(L) 98 - 107 mmol/L 09/13/2024 8:14 AM [facility] Carbon Dioxide (CO2) 23 22 - 29 mmol/L 09/13/2024 8:14 AM [facility] Anion Gap 15 7 - 15 mmol/L 09/13/2024 8:14 AM [facility] Urea Nitrogen 15.2 6.0 - 20.0 mg/dL 09/13/2024 8:14 AM [facility] Creatinine 0.75 0.67 - 1.17 mg/dL 09/13/2024 8:14 AM [facility] GFR Estimate >90 >60 mL/min/1.7 3m2 09/13/2024 8:14 AM [facility] Comment:eGFR calculated usin 2020 CKD-EPI equation. Calcium 8.7(L) 8.8 - 10.4 mg/dL 09/13/2024 8:14 AM [facility] Glucose 129(H) 70 - 99 mg/dL 09/13/2024 8:14 AM [facility] Blood STRUCTURE OF LEFT HAND / Unknown Venipuncture / Unknown 09/13/2024 7:37 AM MARBLE CUTTER 09/13/2024 7:43 AM MARBLE CUTTER Sinan Mcghee MD LAB - BLOOD ORDERABLES Final Res ult [facility] Acute Care Lab [address] Lab (1st floor, no room number) [place] [address], [facility] * CT Chest Pulmonary Embolism w Contrast (09/12/2024 4:00 PM MARBLE CUTTER) Anatomical Region Laterality Modality Chest, SUBRAD CT BODY, UMP CT CHEST Computed Tomography 09/12/2024 4:00 PM MARBLE CUTTER Impressions 09/12/2024 4:11 PM MARBLE CUTTER IMPRESSION: 1. Multifocal pneumonia. 2. No pulmonary embolus. Narrative 09/12/2024 4:11 PM MARBLE CUTTER EXAM: CT CHEST PULMONARY EMBOLISM W CONTRAST LOCATION: [facility] DATE: 09/12/2024 INDICATION: shortness of breath COMPARISON: Same day chest radiograph TECHNIQUE: CT chest pulmonary angiogram during arterial phase injection of IV contrast. Multiplanar reformats and MIP reconstructions were performed. Dose reduction techniques were used. CONTRAST: 88mL Isovue 370 FINDINGS: ANGIOGRAM CHEST: Pulmonary arteries are normal caliber and negative for pulmonary emboli. Thoracic aorta is negative for dissection. No CT evidence of right heart strain. LUNGS AND PLEURA: Mild upper lobe predominant paraseptal emphysema. Patchy, multifocal bilateral airspace disease, most pronounced in the dependent aspect of the lower lobes bilaterally. No pleural effusion or pneumothorax. MEDIASTINUM/AXILLAE: Borderline enlarged mediastinal and hilar lymph nodes, likely reactive to adjacent inflammation, no specific follow-up recommended. No pericardial effusion. CORONARY ARTERY CALCIFICATION: None. UPPER ABDOMEN: Unremarkable. MUSCULOSKELETAL: No acute bony abnormality. Procedure Note Ramo Ricardo MD - 09/12/2024 EXAM: CT CHEST PULMONARY EMBOLISM W CONTRAST LOCATION: [facility] DATE: 09/12/2024 INDICATION: shortness of breath COMPARISON: Same day chest radiograph TECHNIQUE: CT chest pulmonary angiogram during arterial phase injection ofIV contrast. Multiplanar reformats and MIP reconstructions were performed.Dose reduction techniques were used. CONTRAST: 88mL Isovue 370 FINDINGS: ANGIOGRAM CHEST: Pulmonary arteries are normal caliber and negative forpulmonary emboli. Thoracic aorta is negative for dissection. No CTevidence of right heart strain. LUNGS AND PLEURA: Mild upper lobe predominant paraseptal emphysema.Patchy, multifocal bilateral airspace disease, most pronounced in thedependent aspect of the lower lobes bilaterally. No pleural effusion orpneumothorax. MEDIASTINUM/AXILLAE: Borderline enlarged mediastinal and hilar lymphnodes, likely reactive to adjacent inflammation, no specific follow-uprecommended. No pericardial effusion. CORONARY ARTERY CALCIFICATION: None. UPPER ABDOMEN: Unremarkable. MUSCULOSKELETAL: No acute bony abnormality. IMPRESSION: 1. Multifocal pneumonia. 2. No pulmonary embolus. Smita Calderon MD [facility] [place] S Final Result * (ABNORMAL) Magnesium (09/12/2024 3:20 PM MARBLE CUTTER) Magnesium 3.2(H) 1.7 - 2.3 mg/dL 09/12/2024 7:09 PM MARBLE CUTTER [facility]AT[facility] Blood BLOOD SPECIMEN / Unknown Venipuncture / Unknown 09/12/2024 3:20 PM MARBLE CUTTER 09/12/2024 3:39 PM MARBLE CUTTER Sinan Mcghee MD LAB - BLOOD ORDERABLES Final Res ult Performing Organization Address City/Va Hospital/ZIP Co de Phone Number [facility] Lab [address] Lab (1st floor, no room number) [place] [address] * (ABNORMAL) Procalcitonin (09/12/2024 3:20 PM MARBLE CUTTER) Procalcitonin 1.22(H) <0.50 ng/mL 09/12/2024 4:37 PM [facility] LABORATORY Comment: Interpretation and Recommendations <0.5 ng/mL: Systemic bacterial infection unlikely. Local bacterial infection is possible. 0.5-1.99 ng/mL: Systemic bacterial infection possible, but various other conditions are known to induce PCT as well. >=2.00 ng/mL: Systemic bacterial infection likely, unless other causes are known. Decision to start antibiotics should not be based on procalcitonin level alone. See Procalcitonin Guidance document for more details. [email or web address] Factors that may affect PCT levels (not all-inclusive): - Increased PCT level Severe trauma/bowers Invasive surgery Cooling therapy after cardiac arrest/surgery Treatment with agents which stimulate cytokines Acute kidney injury Chronic kidney disease and end stage renal disease Acute graft vs host disease Non-specific shock causing decreased organ perfusion and/or infarction - Normal or unchanged PCT level Early in infections (if low and infection is suspected, repeating in 6-12 hours is recommended) Chronic infections (endocarditis, osteomyelitis, prosthetic device/graft infections) Localized infections (cellulitis, wound infections, intra-abdominal abscess) Note: PCT has not been extensively studied in /, pediatrics, severe immunosuppression, and cystic fibrosis. Blood BLOOD SPECIMEN / Unknown Venipuncture / Unknown 09/12/2024 3:20 PM MARBLE CUTTER 09/12/2024 3:39 PM MARBLE CUTTER Sinan Mcghee MD LAB - BLOOD ORDERABLES Final Res ult Performing Organization Address [facility]/Va Hospital/ZIP Co de Phone Number [facility] Acute Care Lab [address] Lab (1st floor, no room number) [place] [address] * Blood Culture Peripheral Blood (09/12/2024 3:20 PM MARBLE CUTTER) Culture No Growth 09/17/2024 6:16 PM MARBLE CUTTER [facility] Blood BLOOD SPECIMEN / Unknown Venipuncture / Unknown 09/12/2024 3:20 PM MARBLE CUTTER 09/12/2024 3:39 PM MARBLE CUTTER us Smita Calderon MD LAB - MICRO GENE RAL ORDERABLES Final Result [facility] Inf. Diseases Diag. Lab [address] [facility], Room [address] [address] * Blood Culture Peripheral Blood (09/12/2024 3:20 PM MARBLE CUTTER) Culture No Growth 09/17/2024 6:16 PM MARBLE CUTTER [facility] Blood BLOOD SPECIMEN / Unknown Venipuncture / Unknown 09/12/2024 3:20 PM MARBLE CUTTER 09/12/2024 3:39 PM MARBLE CUTTER us Smita Calderon MD LAB - MICRO GENE RAL ORDERABLES Final Result [facility] Inf. Diseases Diag. Lab [address] [facility], [address] [phone] * (ABNORMAL) Blood gas venous (09/12/2024 3:20 PM MARBLE CUTTER) pH Venous 7.44(H) 7.32 - 7.43 09/12/2024 3:44 PM MARBLE CUTTER [facility] pCO2 Venous 45 40 - 50 mm Hg 09/12/2024 3:44 PM MARBLE CUTTER [facility] pO2 Venous 17(L) 25 - 47 mm Hg 09/12/2024 3:44 PM MARBLE CUTTER [facility] Bicarbonate Venous 31(H) 21 - 28 mmol/L 09/12/2024 3:44 PM MARBLE CUTTER [facility] Base Excess/Deficit Venous 5.3(H) -3.0 - 3.0 mmol/L 09/12/2024 3:44 PM MARBLE CUTTER [facility] FIO2 2 ARUN 09/12/2024 3:44 PM MARBLE CUTTER [facility] Comment:2 liters NC Oxyhemoglobin Venous 24(L) 70 - 75 % 09/12/2024 3:44 PM MARBLE CUTTER [facility] O2 Sat, Venous 24.6(L) 70.0 - 75.0 % 09/12/2024 3:44 PM MARBLE CUTTER [facility] Blood, venous BLOOD SPECIMEN / Unknown Venipuncture / Unknown 09/12/2024 3:20 PM MARBLE CUTTER 09/12/2024 3:39 PM MARBLE CUTTER Narrative [facility] - 09/12/2024 3:44 PM MARBLE CUTTER In healthy individuals, oxyhemoglobin (O2Hb) and oxygen saturation (SO2) are approximately equal. In the presence of dyshemoglobins, oxyhemoglobin can be considerably lower than oxygen saturation. Smita Calderon MD LAB - BLOOD IRENA LOPEZ Final Result Performing Organization Address City/Va Hospital/ZIP Co de Phone Number [facility] Lab [address] Lab (1st floor, no room number) [address] * Lactic acid whole blood (09/12/2024 3:20 PM MARBLE CUTTER) [facility] Lactic Acid 1.6 0.7 - 2.0 mmol/L 09/12/2024 3:44 PM MARBLE CUTTER [facility] Blood, venous BLOOD SPECIMEN / Unknown Venipuncture / Unknown 09/12/2024 3:20 PM MARBLE CUTTER 09/12/2024 3:39 PM MARBLE CUTTER Smita Calderon MD LAB - BLOOD ORDE RABSUZANNE Final Result [facility] Lab [address] Lab (1st floor, no room number) [address] * Troponin T, High Sensitivity (09/12/2024 3:20 PM MARBLE CUTTER) Troponin T, High Sensitivity 9 <=22 ng/L 09/12/2024 4:00 PM [facility] C[facility] LABORATORY Comment: Either a High Sensitivity Troponin T baseline (0 hours) value = 100 ng/L, or an increase in High Sensitivity Troponin T = 7 ng/L at 2 hours compared to 0 hours (2-0 hours), suggests myocardial injury, and urgent clinical attention is required. If the 2-0 hours increase is <7 ng/L, a High Sensitivity Troponin T result above gender-specific reference ranges warrants further evaluation. Recommendations for further evaluation include correlation with clinical decision-making tool (e.g., HEART), a 3rd High Sensitivity Troponin T test 2 hours after the 2nd (a 20% change from baseline would represent concern), admission for observation, close PCC/cardiology follow-up, or urgent outpatient provocative testing. Blood BLOOD SPECIMEN / Unknown Venipuncture / Unknown 09/12/2024 3:20 PM MARBLE CUTTER 09/12/2024 3:39 PM MARBLE CUTTER Smita Calderon MD LAB - BLOOD ORDE JESSICA Final Result Performing Organization Address City/Va Hospital/ZIP Co de Phone Number [facility] Lab [address] [employer] Lab (1st floor, no room number) [place] [phone], [facility] * RBC and Platelet Morphology (09/12/2024 2:11 PM MARBLE CUTTER) Pathologist [facility] RBC Morphology Confirmed RBC Indices 09/12/2024 3:22 PM [facility] LABORATORY Platelet Assessment Automated Count Confirmed. Platelet morphology is normal. Automated Count Confirmed. Platelet morphology is normal. [facility] 09/12/2024 3:22 PM [facility] C[facility]TER LABORATORY Blood BLOOD SPECIMEN / Unknown Venipuncture / Unknown 09/12/2024 2:11 PM MARBLE CUTTER 09/12/2024 2:15 PM MARBLE CUTTER us Smita Calderon MD LAB - BLOOD ORDE RABSUZANNE Final Result [facility] [address] Lab (1st floor, no room number) [place] [address], [facility] * (ABNORMAL) CBC with platelets and differential (09/12/2024 2:11 PM MARBLE CUTTER) [facility] Signature WBC Count 6.7 4.0 - 11.0 10e3/uL 09/12/2024 3:22 PM [facility] RBC Count 5.61 4.40 - 5.90 10e6/uL 09/12/2024 3:22 PM [facility] Hemoglobin 14.5 13.3 - 17.7 g/dL 09/12/2024 3:22 PM [facility] Hematocrit 43.1 40.0 - 53.0 % 09/12/2024 3:22 PM [facility] MCV 77(L) 78 - 100 fL 09/12/2024 3:22 PM [facility] MCH 25.8(L) 26.5 - 33.0 pg 09/12/2024 3:22 PM [facility] MCHC 33.6 31.5 - 36.5 g/dL 09/12/2024 3:22 PM [facility] RDW 13.6 10.0 - 15.0 % 09/12/2024 3:22 PM [facility] Platelet Count 256 150 - 450 10e3/uL 09/12/2024 3:22 PM [facility] % Neutrophils 79 % 09/12/2024 3:22 PM [facility] % Lymphocytes 9 % 09/12/2024 3:22 PM [facility] % Monocytes 10 % 09/12/2024 3:22 PM [facility] % Eosinophils 0 % 09/12/2024 3:22 PM [facility] % Basophils 0 % 09/12/2024 3:22 PM [facility] % Immature Granulocytes 2 % 09/12/2024 3:22 PM [facility] NRBCs per 100 WBC 0 <1 /100 025 3:22 PM [facility] Absolute Neutrophils 5.3 1.6 - 8.3 10e3/uL 09/12/2024 3:22 PM [facility] Absolute Lymphocytes 0.6(L) 0.8 - 5.3 10e3/uL 09/12/2024 3:22 PM [facility] Absolute Monocytes 0.7 0.0 - 1.3 10e3/uL 09/12/2024 3:22 PM [facility] Absolute Eosinophils 0.0 0.0 - 0.7 10e3/uL 09/12/2024 3:22 PM [facility] Absolute Basophils 0.0 0.0 - 0.2 10e3/uL 09/12/2024 3:22 PM [facility] Absolute Immature Granulocytes 0.1 <=0.4 10e3/uL 09/12/2024 3:22 PM [facility] Absolute NRBCs 0.0 10e3/uL 09/12/2024 3:22 PM [facility] Blood BLOOD SPECIMEN / Unknown Venipuncture / Unknown 09/12/2024 2:11 PM MARBLE CUTTER 09/12/2024 2:15 PM MARBLE CUTTER us Smita Calderon MD LAB - BLOOD ORDE JESSICA Final Result [facility] [address] Lab (1st floor, no room number) [address] * Extra Red Top Tube (09/12/2024 2:11 PM MARBLE CUTTER) Hold Specimen [facility] 09/12/2024 3:16 PM [facility] Blood BLOOD SPECIMEN / Unknown Venipuncture / Unknown 09/12/2024 2:11 PM MARBLE CUTTER 09/12/2024 2:15 PM MARBLE CUTTER us Smita Calderon MD LAB - BLOOD ORDE JESSICA Final Result [facility] [address] Lab (1st floor, no room number) [address] * Extra Blue Top Tube (09/12/2024 2:11 PM MARBLE CUTTER) Hold Specimen [facility] 09/12/2024 3:16 PM [facility] Blood BLOOD SPECIMEN / Unknown Venipuncture / Unknown 09/12/2024 2:11 PM MARBLE CUTTER 09/12/2024 2:15 PM MARBLE CUTTER us Smita Calderon MD LAB - BLOOD ORDE JESSICA Final Result LABORATORY [facility] [address] Lab (1st floor, no room number) [place] [phone] * (ABNORMAL) D dimer quantitative (09/12/2024 2:11 PM MARBLE CUTTER) Pathologist [facility] D-Dimer Quantitative 0.75(H) 0.00 - 0.50 ug/mL FEU 09/12/2024 2:29 PM [facility] C[facility]TER LABORATORY Blood BLOOD SPECIMEN / Unknown Venipuncture / Unknown 09/12/2024 2:11 PM MARBLE CUTTER 09/12/2024 2:15 PM MARBLE CUTTER Narrative LABORATORY - 09/12/2024 2:29 PM MARBLE CUTTER This D-dimer assay is intended for use in conjunction with a clinical pretest probability assessment model to exclude pulmonary embolism (PE) and deep venous thrombosis (DVT) in outpatients suspected of PE or DVT. The cut-off value is 0.50 ug/mL FEU. mSita Calderon MD LAB - BLOOD ORDE RIDGESUZANNE Final Result Performing Organization Address [facility]/ZIP Co de Phone Number [facility] [address] Lab (1st floor, no room number) [place] [phone] * Troponin T, High Sensitivity (09/12/2024 2:11 PM MARBLE CUTTER) [facility] Troponin T, High Sensitivity 8 <=22 ng/L 09/12/2024 2:42 PM [facility] C[facility]TER LABORATORY Comment: Either a High Sensitivity Troponin T baseline (0 hours) value = 100 ng/L, or an increase in High Sensitivity Troponin T = 7 ng/L at 2 hours compared to 0 hours (2-0 hours), suggests myocardial injury, and urgent clinical attention is required. If the 2-0 hours increase is <7 ng/L, a High Sensitivity Troponin T result above gender-specific reference ranges warrants further evaluation. Recommendations for further evaluation include correlation with clinical decision-making tool (e.g., HEART), a 3rd High Sensitivity Troponin T test 2 hours after the 2nd (a 20% change from baseline would represent concern), admission for observation, close PCC/cardiology follow-up, or urgent outpatient provocative testing. Blood BLOOD SPECIMEN / Unknown Venipuncture / Unknown 09/12/2024 2:11 PM MARBLE CUTTER 09/12/2024 2:15 PM MARBLE CUTTER Smita Calderon MD LAB - BLOOD ORDE JESSICA Final Result LABORATORY [facility] [address] Lab (1st floor, no room number) [place] [address], [facility] * (ABNORMAL) Basic metabolic panel (09/12/2024 2:11 PM MARBLE CUTTER) [facility] Sodium 135 135 - 145 mmol/L 09/12/2024 2:42 PM [facility] Potassium 4.0 3.4 - 5.3 mmol/L 09/12/2024 2:42 PM [facility] Chloride 94(L) 98 - 107 mmol/L 09/12/2024 2:42 PM [facility] Carbon Dioxide (CO2) 27 22 - 29 mmol/L 09/12/2024 2:42 PM [facility] Anion Gap 14 7 - 15 mmol/L 09/12/2024 2:42 PM [facility] Urea Nitrogen 15.1 6.0 - 20.0 mg/dL 09/12/2024 2:42 PM [facility] Creatinine 0.95 0.67 - 1.17 mg/dL 09/12/2024 2:42 PM [facility] GFR Estimate >90 >60 mL/min/1.7 3m2 09/12/2024 2:42 PM [facility] Comment:eGFR calculated usin g 2020 CKD-EPI equation. Calcium 8.8 8.8 - 10.4 mg/dL 09/12/2024 2:42 PM [facility] Glucose 122(H) 70 - 99 mg/dL 09/12/2024 2:42 PM [facility] Blood BLOOD SPECIMEN / Unknown Venipuncture / Unknown 09/12/2024 2:11 PM MARBLE CUTTER 09/12/2024 2:15 PM MARBLE CUTTER Smita Calderon MD LAB - BLOOD IRENA LOPEZ Final Result [facility] [address] Lab (1st floor, no room number) [place] [address] * XR Chest 2 Views (09/12/2024 1:52 PM MARBLE CUTTER) Anatomical Region Laterality Modality Chest Computed Radiogr aphy 09/12/2024 1:52 PM MARBLE CUTTER Impressions 09/12/2024 1:55 PM MARBLE CUTTER IMPRESSION: Patchy infiltrates in the mid and lower lungs bilaterally typical of bilateral pneumonia. Narrative 09/12/2024 1:55 PM MARBLE CUTTER EXAM: XR CHEST 2 VIEWS LOCATION: [facility] DATE: 09/12/2024 INDICATION: shortness of breath, tachypneic COMPARISON: None. Procedure Note Ed Joseph MD - 09/12/2024 EXAM: XR CHEST 2 VIEWS LOCATION: [facility] DATE: 09/12/2024 INDICATION: shortness of breath, tachypneic COMPARISON: None. IMPRESSION: Patchy infiltrates in the mid and lower lungs bilaterallytypical of bilateral pneumonia. Smita Calderon MD IMG DIAGNOSTIC I MAGING ORDERABLES Final Result * EKG 12-lead, tracing only (09/12/2024 1:39 PM MARBLE CUTTER) Systolic Blood Pressure mmHg RADIOLOGY RESULTS Diastolic Blood Pressure mmHg RADIOLOGY RESULTS Ventricular Rate 88 BPM RAD IOLOGY RESULTS Atrial Rate 88 BPM RADIOLOG Y RESULTS HI Interval 144 ms RADIOLOG Y RESULTS QRS Duration 92 ms RADIOLO GY RESULTS QT 358 ms RADIOLOGY RESULTS QTc 433 ms RADIOLOGY RESULTS P Avenel 10 degrees RADIOLOGY RESULTS R AXIS 31 degrees RADIOLOGY RESULTS T Avenel 19 degrees RADIOLOGY RESULTS Interpretation ECG Sinus rhythm Normal ECG No previous ECGs available Confirmed by - EMERGENCY ROOM, PHYSICIAN ([id number]), dictionary editor FIDEL MANDUJANO ([id number]) on 09/12/2024 1:42:55 PM RADIOLOGY RESULTS 09/12/2024 1:39 PM MARBLE CUTTER 09/12/2024 1:42 PM MARBLE CUTTER Smita Calderon MD ECG ORDERABLES Edited Result - Final RADIOLOGY RESULTS * (ABNORMAL) Influenza A/B, RSV and SARS-CoV2 PCR (COVID-19) Nasopharyngeal (09/12/2024 1:25 PM MARBLE CUTTER) Influenza A PCR Positive(A) Negative 09/12/2024 2:23 PM [facility] Influenza B PCR Negative Negative 09/12/2024 2:23 PM [facility] RSV PCR Negative Negative 09/12/2024 2:23 PM [facility] SARS CoV2 PCR Negative Negative 09/12/2024 2:23 PM [facility] Comment:NEGATIVE: SARS-CoV-2 (COVID-19) RNA not detected, presumed negative. Swab NASOPHARYNGEAL STRUCTURE / Unknown Non-blood Collection / Unknown 09/12/2024 1:25 PM MARBLE CUTTER 09/12/2024 1:29 PM MARBLE CUTTER Narrative [facility] - 09/12/2024 2:23 PM MARBLE CUTTER Testing was performed using the Xpert Xpress CoV2/Flu/RSV Assay on the [employer] GeneXpert Instrument. This test should be ordered for the detection of SARS- CoV2, influenza, and RSV viruses in individuals with signs and symptoms of respiratory tract infection. This test is for in vitro diagnostic use under the [place] FDA for laboratories certified under CLIA to perform high or moderate complexity testing. This test has been [place] FDA cleared. A negative result does not rule out the presence of PCR inhibitors in the specimen or target RNA in concentration below the limit of detection for the assay. If only one viral target is positive but coinfection with multiple targets is suspected, the sample should be re-tested with another FDA cleared, approved, or authorized test, if coninfection would change clinical management. This test was validated by the [facility] [employer]. These laboratories are certified under the Clinical Laboratory Improvement Amendments of 1988 (CLIA-88) as qualified to perfom high complexity laboratory testing. us Smita Calderon MD LAB - MICRO GENE RAL ORDERABLES Final Result LABORATORY [facility] [address] Lab (1st floor, no room number) [place] [address], [facility] * EKG Cardiac - HIM Scan (09/12/2024 12:00 AM MARBLE CUTTER) 09/12/2024 us Provider Outside ECG ORDERABLES Final Result documented in this encounter Visit Diagnoses Diagnosis Influenza A Influenza with other respiratory manifestations Community acquired bacterial pneumonia Bacterial pneumonia, unspecified Hypoxia Hypoxemia Influenza A Influenza with other respiratory manifestations Hypoxia Hypoxemia Community acquired bacterial pneumonia Bacterial pneumonia, unspecified SOB (shortness of breath) Shortness of breath documented in this encounter Admitting Diagnoses Diagnosis Influenza A Influenza with other respiratory manifestations Hypoxia Hypoxemia Community acquired bacterial pneumonia Bacterial pneumonia, unspecified SOB (shortness of breath) Shortness of breath documented in this encounter Administered Medications Inactive Administered Medications - up to 3 most recent administrations Medication Order MAR Action Action Date Dose Rate Site acetaminophen (TYLENOL) Suppository 650 mg 650 mg, Rectal, EVERY 4 HOURS PRN, mild pain, other, and adjunct with moderate or severe pain or per patient request, Starting on Thu09/12/24 at 1743, Alternate with ibuprofen if ordered. Maximum acetaminophen dose from all sources = 75 mg/kg/day not to exceed 4 grams/day. acetaminophen (TYLENOL) tablet 650 mg 650 mg, Oral, EVERY 4 HOURS PRN, mild pain, other, and adjunct with moderate or severe pain or per patient request, Starting on Thu09/12/24 at 1743, Alternate with ibuprofen if ordered. Maximum acetaminophen dose from all sources = 75 mg/kg/day not to exceed 4 grams/day. azithromycin (ZITHROMAX) tablet 500 mg STAT, 500 mg, Oral, ONCE, On Thu09/12/24 at 1515, For 1 dose, Indications: Community Acquired PneumoniaIndications:Community Acquired Pneumonia $Given 09/12/2024 3:37 PM MARBLE CUTTER 500 mg cefTRIAXone (ROCEPHIN) 2 g vial to attach to NS 100 ml bag for ADULTS or NS 50 ml bag for PEDS STAT, 2 g, Intravenous, ONCE, On Thu09/12/24 at 1515, For 1 dose, Lactated Ringer's solution is not compatible with ceftriaxone for injection, Indications: Community Acquired PneumoniaIndications:Community Acquired Pneumonia $New Bag 09/12/2024 3:37 PM MARBLE CUTTER [address] scan flush Intravenous, 100 mL, ONCE, On Thu09/12/24 at 1550, For 1 dose, This entry is for use by Radiology to intermittently used as a flush in patients receiving a CT scan. $Given 09/12/2024 3:48 PM MARBLE CUTTER 100 mLs guaiFENesin (MUCINEX) 12 hr tablet 600 mg 600 mg, Oral, 2 TIMES DAILY, First dose on Thu09/12/24 at 2000, DO NOT CRUSH. $Given 09/13/2024 8:50 AM MARBLE CUTTER 600 mg $Given 09/12/2024 8:03 PM MARBLE CUTTER 600 mg iopamidol (ISOVUE-370) solution 500 mL 500 mL, Intravenous, ONCE, On Thu09/12/24 at 1550, For 1 dose $Given 09/12/2024 3:48 PM MARBLE CUTTER 88 mLs ipratropium - albuterol 0.5 mg/2.5 mg/3 mL (DUONEB) neb solution 3 mL 3 mL, Nebulization, ONCE, On Thu09/12/24 at 1405, For 1 dose $Given 09/12/2024 4:24 PM MARBLE CUTTER 3 mLs magnesium sulfate 2 g in 50 mL sterile water intermittent infusion 2 g, Intravenous, Administer over 60 Minutes, at 50 mL/hr, ONCE, On Thu09/12/24 at 1405, For 1 dose $New Bag 09/12/2024 2:16 PM MARBLE CUTTER 2 g 50 m L/hr methylPREDNISolone Na Suc (solu-MEDROL) injection 125 mg 125 mg, Intravenous, ONCE, On Thu09/12/24 at 1405, For 1 dose $Given 09/12/2024 2:16 PM MARBLE CUTTER 125 mg ondansetron (ZOFRAN ODT) ODT tab 4 mg 4 mg, Oral, EVERY 6 HOURS PRN, nausea/vomiting - 1st line, Starting on Thu09/12/24 at 1743, This is Step 1 of nausea and vomiting management. If nausea not resolved in 15 minutes, go to Step 2 prochlorperazine (COMPAZINE). With dry hands, peel back foil backing and gently remove tablet. Do not push oral disintegrating tablet through foil backing. Administer immediately on tongue and oral disintegrating tablet dissolves in seconds, then swallow with saliva. Liquid not required. ondansetron (ZOFRAN) injection 4 mg 4 mg, Intravenous, EVERY 6 HOURS PRN, nausea/vomiting - 1st line, Administer over 2-5 Minutes, Starting on Thu09/12/24 at 1743, Give IF patient unable to tolerate oral medication. This is Step 1 of nausea and vomiting management. If nausea not resolved in 15 minutes, go to Step 2 prochlorperazine (COMPAZINE). oseltamivir (TAMIFLU) capsule 75 mg STAT, 75 mg, Oral, ONCE, On Thu09/12/24 at 1405, For 1 dose, Indications: InfluenzaIndications:Influenza $Given 09/12/2024 2:16 PM MARBLE CUTTER 75 mg oseltamivir (TAMIFLU) capsule 75 mg Routine, 75 mg, Oral, 2 TIMES DAILY, First dose on Thu09/13/24 at 0800, Indications: InfluenzaIndications:Influenza $Given 09/13/2024 8:50 AM MARBLE CUTTER 75 mg senna-docusate (SENOKOT-S/PERICOLACE) 8.6-50 MG per tablet 1 tablet 1 tablet, Oral, 2 TIMES DAILY PRN, constipation, Starting on Thu09/12/24 at 1743, If no bowel movement in 24 hours, increase to 2 tablets by mouth. IF more than 1 constipation PRN medication is ordered, administer step-blair as indicated, moving to the next step ONLY if prior step ineffective. Step 1: senna-docusate (SENOKOT-S; PERICOLACE) OR bisacodyl (DULCOLAX) EC tablet Step 2: polyethylene glycol (MIRALAX/GLYCOLAX) Step 3: bisacodyl (DULCOLAX) suppository Step 4: enema Hold for loose stools. senna-docusate (SENOKOT-S/PERICOLACE) 8.6-50 MG per tablet 2 tablet 2 tablet, Oral, 2 TIMES DAILY PRN, constipation, Starting on Thu09/12/24 at 1743, IF more than 1 constipation PRN medication is ordered, administer step-blair as indicated, moving to the next step ONLY if prior step ineffective. Step 1: senna-docusate (SENOKOT-S; PERICOLACE) OR bisacodyl (DULCOLAX) EC tablet Step 2: polyethylene glycol (MIRALAX/GLYCOLAX) Step 3: bisacodyl (DULCOLAX) suppository Step 4: enema Hold for loose stools. sodium chloride (PF) 0.9% PF flush 3 mL 3 mL, Intracatheter, EVERY 8 HOURS, First dose on Thu09/12/24 at 1745, to lock peripheral IV dormant line $Given 09/13/2024 8:51 AM MARBLE CUTTER 3 mLs $Given 09/13/2024 12:55 AM MARBLE CUTTER 3 mLs $Given 09/12/2024 6:07 PM MARBLE CUTTER 3 mLs documented in this encounter Active and Recently Administered Medications Times are shown in MARBLE CUTTER. Scheduled Medication Order 09/11/2024 09/12/2024 09/13/2024 azithromycin (ZITHROMAX) tablet 250 mg Routine, 250 mg, Oral, DAILY, First dose on Thu09/13/24 at 1400, For 4 days, Indications: Community Acquired Pneumonia 1400 (Canceled Entry - Provider: Orders Generic Provider - Comment: Automatically canceled at discontinue of medication order) azithromycin (ZITHROMAX) tablet 500 mg (COMPLETED) STAT, 500 mg, Oral, ONCE, On Thu09/12/24 at 1515, For 1 dose, Indications: Community Acquired Pneumonia 1537 ($Given - Provider: Amira Ontiveros RN) cefTRIAXone (ROCEPHIN) 2 g vial to attach to NS 100 ml bag for ADULTS or NS 50 ml bag for PEDS (COMPLETED) STAT, 2 g, Intravenous, ONCE, On Thu09/12/24 at 1515, For 1 dose, Lactated Ringer's solution is not compatible with ceftriaxone for injection, Indications: Community Acquired Pneumonia 1537 ($New Bag - Provider: Amira Ontiveros RN) cefTRIAXone (ROCEPHIN) 2 g vial to attach to NS 100 ml bag for ADULTS or NS 50 ml bag for PEDS STAT, 2 g, Intravenous, EVERY 24 HOURS, First dose on Thu09/13/24 at 1500, Per ED pharmacy weight-based antibiotic protocol Lactated Ringer's solution is not compatible with ceftriaxone for injection, Indications: Community Acquired Pneumonia 1500 (Canceled Entry - Provider: Orders Generic Provider - Comment: Automatically canceled at discontinue of medication order) CT scan flush (COMPLETED) Intravenous, 100 mL, ONCE, On Thu09/12/24 at 1550, For 1 dose, This entry is for use by Radiology to intermittently used as a flush in patients receiving a CT scan. 1548 ($Given - Provider: EVELIA Hollis) guaiFENesin (MUCINEX) 12 hr tablet 600 mg 600 mg, Oral, 2 TIMES DAILY, First dose on Thu09/12/24 at 2000, DO NOT CRUSH. 2002 ($Given - Provider: Dena Chanel RN) 0850 ($Given - Provider: Ericka Rodriguez RN) iopamidol (ISOVUE-370) solution 500 mL (COMPLETED) 500 mL, Intravenous, ONCE, On Thu09/12/24 at 1550, For 1 dose 1548 ($Given - Provider: EVELIA Hollis) ipratropium - albuterol 0.5 mg/2.5 mg/3 mL (DUONEB) neb solution 3 mL (COMPLETED) 3 mL, Nebulization, ONCE, On Thu09/12/24 at 1405, For 1 dose 1624 ($Given - Provider: [place] RN) magnesium sulfate 2 g in 50 mL sterile water intermittent infusion (COMPLETED) 2 g, Intravenous, Administer over 60 Minutes, at 50 mL/hr, ONCE, On Thu09/12/24 at 1405, For 1 dose 1416 ($New Bag - Provider: Amira Ontiveros RN) methylPREDNISolone Na Suc (solu-MEDROL) injection 125 mg (COMPLETED) 125 mg, Intravenous, ONCE, On Thu09/12/24 at 1405, For 1 dose 1416 ($Given - Provider: Amira Ontiveros RN) oseltamivir (TAMIFLU) capsule 75 mg (COMPLETED) STAT, 75 mg, Oral, ONCE, On Thu09/12/24 at 1405, For 1 dose, Indications: Influenza 1416 ($Given - Provider: Amira Ontiveros RN) oseltamivir (TAMIFLU) capsule 75 mg Routine, 75 mg, Oral, 2 TIMES DAILY, First dose on Thu09/13/24 at 0800, Indications: Influenza 0850 ($Given - Provi nicole: Ericka Rodriguez RN) sodium chloride (PF) 0.9% PF flush 3 mL 3 mL, Intracatheter, EVERY 8 HOURS, First dose on Thu09/12/24 at 1745, to lock peripheral IV dormant line 1807 ($Given - Provider: Judi Purcell, RN) 0055 ($Given - Provider: Kyle Merchant, JOHN)0851 ($Given - Provider: Ericka Rodriguez, RN) PRN Medication Order 09/11/2024 09/12/2024 09/13/2024 acetaminophen (TYLENOL) Suppository 650 mg(Linked Group 1) 650 mg, Rectal, EVERY 4 HOURS PRN, mild pain, other, and adjunct with moderate or severe pain or per patient request, Starting on Thu09/12/24 at 1743, Alternate with ibuprofen if ordered. Maximum acetaminophen dose from all sources = 75 mg/kg/day not to exceed 4 grams/day. acetaminophen (TYLENOL) tablet 650 mg(Linked Group 1) 650 mg, Oral, EVERY 4 HOURS PRN, mild pain, other, and adjunct with moderate or severe pain or per patient request, Starting on Thu09/12/24 at 1743, Alternate with ibuprofen if ordered. Maximum acetaminophen dose from all sources = 75 mg/kg/day not to exceed 4 grams/day. benzonatate (TESSALON) capsule 100 mg 100 mg, Oral, 3 TIMES DAILY PRN, cough, Starting on Thu09/12/24 at 1743, Swallow whole. Do not chew, crush or break. calcium carbonate (TUMS) chewable tablet 1,000 mg 1,000 mg, Oral, 4 TIMES DAILY PRN, heartburn, Starting on Thu09/12/24 at 1743 ipratropium - albuterol 0.5 mg/2.5 mg/3 mL (DUONEB) neb solution 3 mL 3 mL, Nebulization, EVERY 4 HOURS PRN, wheezing, shortness of breath, Starting on Thu09/12/24 at 1743 lidocaine (LMX4) cream Topical, EVERY 1 HOUR PRN, pain, with VAD insertion, Starting on Thu09/12/24 at 1743, Apply at least 30 minutes prior to VAD insertion in divided doses as needed for size of site for insertion. MAX Dose: 2.5 g ( of 5 g tube) Do NOT give if patient has a history of allergy to any local anesthetic or any glenn product. Do NOT use both lidocaine intradermal/subcutaneous injection and the lidocaine cream on the same site. lidocaine 1 % 0.1-1 mL 0.1-1 mL, Other, EVERY 1 HOUR PRN, mild pain with VAD insertion, Starting on Thu09/12/24 at 1743, MAX dose 1 mL subcutaneous OR intradermal along the side of the vein in divided doses as needed for VAD insertion. Do NOT give if patient has a history of allergy to any local anesthetic or any glenn product. Do NOT use both lidocaine intradermal/subcutaneous injection and the lidocaine cream on the same site. melatonin tablet 5 mg 5 mg, Oral, AT BEDTIME PRN, sleep, Starting on Thu09/12/24 at 1743, Do not give unless at least 6 hours of uninterrupted sleep is expected. If patient has multiple medications ordered PRN sleep/insomnia, offer melatonin first. ondansetron (ZOFRAN ODT) ODT tab 4 mg(Linked Group 2) 4 mg, Oral, EVERY 6 HOURS PRN, nausea/vomiting - 1st line, Starting on Thu09/12/24 at 1743, This is Step 1 of nausea and vomiting management. If nausea not resolved in 15 minutes, go to Step 2 prochlorperazine (COMPAZINE). With dry hands, peel back foil backing and gently remove tablet. Do not push oral disintegrating tablet through foil backing. Administer immediately on tongue and oral disintegrating tablet dissolves in seconds, then swallow with saliva. Liquid not required. ondansetron (ZOFRAN) injection 4 mg(Linked Group 2) 4 mg, Intravenous, EVERY 6 HOURS PRN, nausea/vomiting - 1st line, Administer over 2-5 Minutes, Starting on Thu09/12/24 at 1743, Give IF patient unable to tolerate oral medication. This is Step 1 of nausea and vomiting management. If nausea not resolved in 15 minutes, go to Step 2 prochlorperazine (COMPAZINE). senna-docusate (SENOKOT-S/PERICOLACE) 8.6-50 MG per tablet 1 tablet(Linked Group 3) 1 tablet, Oral, 2 TIMES DAILY PRN, constipation, Starting on Thu09/12/24 at 1743, If no bowel movement in 24 hours, increase to 2 tablets by mouth. IF more than 1 constipation PRN medication is ordered, administer step-blair as indicated, moving to the next step ONLY if prior step ineffective. Step 1: senna-docusate (SENOKOT-S; PERICOLACE) OR bisacodyl (DULCOLAX) EC tablet Step 2: polyethylene glycol (MIRALAX/GLYCOLAX) Step 3: bisacodyl (DULCOLAX) suppository Step 4: enema Hold for loose stools. senna-docusate (SENOKOT-S/PERICOLACE) 8.6-50 MG per tablet 2 tablet(Linked Group 3) 2 tablet, Oral, 2 TIMES DAILY PRN, constipation, Starting on Thu09/12/24 at 1743, IF more than 1 constipation PRN medication is ordered, administer step-blair as indicated, moving to the next step ONLY if prior step ineffective. Step 1: senna-docusate (SENOKOT-S; PERICOLACE) OR bisacodyl (DULCOLAX) EC tablet Step 2: polyethylene glycol (MIRALAX/GLYCOLAX) Step 3: bisacodyl (DULCOLAX) suppository Step 4: enema Hold for loose stools. sodium chloride (PF) 0.9% PF flush 3 mL 3 mL, Intracatheter, EVERY 1 MIN PRN, line flush, other, to ensure patency or to lock dormant line, Starting on Thu09/12/24 at 1743 Linked Groups Order Group 1: acetaminophen (TYLENOL) tablet 650 mgJump to med 650 mg, Oral, EVERY 4 HOURS PRN, mild pain, other, and adjunct with moderate or severe pain or per patient request, Starting on Thu09/12/24 at 1743, Alternate with ibuprofen if ordered. Maximum acetaminophen dose from all sources = 75 mg/kg/day not to exceed 4 grams/day. Or acetaminophen (TYLENOL) Suppository 650 mgJump to med 650 mg, Rectal, EVERY 4 HOURS PRN, mild pain, other, and adjunct with moderate or severe pain or per patient request, Starting on Thu09/12/24 at 1743, Alternate with ibuprofen if ordered. Maximum acetaminophen dose from all sources = 75 mg/kg/day not to exceed 4 grams/day. Group 2: ondansetron (ZOFRAN ODT) ODT tab 4 mgJump to med 4 mg, Oral, EVERY 6 HOURS PRN, nausea/vomiting - 1st line, Starting on Thu09/12/24 at 1743, This is Step 1 of nausea and vomiting management. If nausea not resolved in 15 minutes, go to Step 2 prochlorperazine (COMPAZINE). With dry hands, peel back foil backing and gently remove tablet. Do not push oral disintegrating tablet through foil backing. Administer immediately on tongue and oral disintegrating tablet dissolves in seconds, then swallow with saliva. Liquid not required. Or ondansetron (ZOFRAN) injection 4 mgJump to med 4 mg, Intravenous, EVERY 6 HOURS PRN, nausea/vomiting - 1st line, Administer over 2-5 Minutes, Starting on Thu09/12/24 at 1743, Give IF patient unable to tolerate oral medication. This is Step 1 of nausea and vomiting management. If nausea not resolved in 15 minutes, go to Step 2 prochlorperazine (COMPAZINE). Group 3: senna-docusate (SENOKOT-S/PERICOLACE) 8.6-50 MG per tablet 1 tabletJump to med 1 tablet, Oral, 2 TIMES DAILY PRN, constipation, Starting on Thu09/12/24 at 1743, If no bowel movement in 24 hours, increase to 2 tablets by mouth. IF more than 1 constipation PRN medication is ordered, administer step-blair as indicated, moving to the next step ONLY if prior step ineffective. Step 1: senna-docusate (SENOKOT-S; PERICOLACE) OR bisacodyl (DULCOLAX) EC tablet Step 2: polyethylene glycol (MIRALAX/GLYCOLAX) Step 3: bisacodyl (DULCOLAX) suppository Step 4: enema Hold for loose stools. Or senna-docusate (SENOKOT-S/PERICOLACE) 8.6-50 MG per tablet 2 tabletJump to med 2 tablet, Oral, 2 TIMES DAILY PRN, constipation, Starting on Thu09/12/24 at 1743, IF more than 1 constipation PRN medication is ordered, administer step-blair as indicated, moving to the next step ONLY if prior step ineffective. Step 1: senna-docusate (SENOKOT-S; PERICOLACE) OR bisacodyl (DULCOLAX) EC tablet Step 2: polyethylene glycol (MIRALAX/GLYCOLAX) Step 3: bisacodyl (DULCOLAX) suppository Step 4: enema Hold for loose stools. documented in this encounter Additional Health Concerns Infection Onset Date Last Indicated Resolved Time Rule Out COVID-19 09/12/2024 09/12/2024 09/12/2024 2:23 PM [facility] Influenza 09/12/2024 09/12/2024 09/19/2024 11:4 1 PM [facility] documented as of this encounter Care Teams [employer] Relationship Specialty Start Date End Date No Ref-Primary, Physician PCP - General 02/05/24 documented as of this encounter
--- OUTSIDE RECORDS SUMMARY | 2024-10-11 13:40 | XMS_ITS | Clinical Summary ---
Author Organization [facility] Address [address] [place] [id number] Care Team Providers Care Heatset Winder Operator Name Role Phone No Ref-Primary, Physician Primary Care Provider Allergies No known active allergies Medications * This document contains information received from the source organization and may not represent a complete record from that organization. albuterol (PROAIR HFA/PROVENTIL HFA/VENTOLIN HFA) 108 (90 Base) MCG/ACT inhalerIndicat ions:Influenza A Inhale 2 puffs into the lungs every 6 hours as needed for shortness of breath, wheezing or cough. 18 g 09/13/19 25 Active oseltamivir (TAMIFLU) 75 MG capsule Take 75 mg by mouth 2 times daily. 09/08/19 25 025 Discontinued oseltamivir (TAMIFLU) 75 MG capsuleIndicat ions:Influenza A Take 1 capsule (75 mg) by mouth 2 times daily for 4 days. 8 capsule 09/13/19 25 025 azithromycin (ZITHROMAX) 250 MG tabletIndicati ons:Community Acquired Pneumonia Take 1 tablet (250 mg) by mouth daily for 4 days. 4 tablet 09/13/19 25 025 benzonatate (TESSALON) 100 MG capsuleIndicat ions:Influenza A Take 1 capsule (100 mg) by mouth 3 times daily as needed for cough. 14 capsule 09/13/19 25 025 cefuroxime (CEFTIN) 500 MG tabletIndicati ons:Community acquired bacterial pneumonia Take 1 tablet (500 mg) by mouth 2 times daily for 7 days. 14 tablet 09/13/19 25 025 guaiFENesin (MUCINEX) 600 MG 12 hr tabletIndicati ons:Influenza A Take 1 tablet (600 mg) by mouth 2 times daily for 7 days. 14 tablet 09/13/19 25 025 Active Problems Problem Noted Date Diagnosed Date Influenza A 09/12/2024 Hypoxia 09/12/2024 Community acquired bacterial pneumonia SOB (shortness of breath) 09/12/2024 Encounters Date Type Department Care Team Description 09/12/2024 1:46 PM MUSHROOM PACKER - 09/13/2024 1:15 PM MUSHROOM PACKER Emergency [place] [id number] [facility] [address] [place] [phone] Smita Calderon MD Bray, Scott, MD Influenza A; Community acquired bacterial pneumonia; Hypoxia Discharge Disposition: Home or Self Care 09/12/2024 Travel from Last 3 Months Social History Tobacco Use Types Packs/Day Years [...] in an abandoned building, in an overnight senior care, or couch-surfing.) Yes 09/12/2024 Are you worried [...] on file Legal Sex Male 3:41 AM MUSHROOM PACKER Gender Identity Not on file Sexual Orientation Not on file Last Filed Vital Signs Vital Sign Reading Time Taken Comments Blood Pressure 134/88 09/13/2024 6:17 AM MUSHROOM PACKER Pulse 74 09/13/2024 6:17 AM MUSHROOM PACKER Temperature 37 C (98.6 F) 09/13/2024 6:17 AM MUSHROOM PACKER Respiratory Rate 18 09/13/2024 6:17 AM MUSHROOM PACKER Oxygen Saturation 95% 09/13/2024 6:17 AM MUSHROOM PACKER Inhaled Oxygen Concentration - - Weight 115.8 kg (255 lb 4.7 oz) 09/13/2024 6:22 AM MUSHROOM PACKER Height 188 cm (6' 2) 09/12/2024 1:18 PM MUSHROOM PACKER Body Mass Index 32.78 09/12/2024 1:18 PM MUSHROOM PACKER Plan of Treatment Health Maintenance Due Date Last Done Comments ADVANCE CARE PLANNING 1987 ANNUAL REVIEW OF HM ORDERS 1987 YEARLY PREVENTIVE VISIT 1990 HEPATITIS B IMMUNIZATION (1 of 3 - 19+ 3-dose series) 2006 COVID-19 Vaccine ( season) 2024 INFLUENZA VACCINE (#1) 2024 07/24/2010 PHQ-2 (once per calendar year) 2024 GLUCOSE 09/13/2027 09/13/2024, 09/12/2024 DTAP/TDAP/TD IMMUNIZATION (8 - Td or Tdap) 08/20/2030 08/20/2020, 04/01/2000, 12/24/1992, Additional history exists ZOSTER IMMUNIZATION (1 of 2) 2037 HEPATITIS C SCREENING Completed 11/12/2011, 012 HIV SCREENING Completed 11/12/2011 Pneumococcal Vaccine: Pediatrics (0 to 5 Years) and At-Risk Patients (6 to 49 Years) Aged Out 11/12/2011 No longer eligible based on patient's age to complete this topic HPV IMMUNIZATION Aged Out No longer e ligible based on patient's age to complete this topic MENINGITIS IMMUNIZATION Aged Out No l onger eligible based on patient's age to complete this topic Procedures Procedure Name Priority Date/Time Associated Diagnosis Comments MAGNESIUM Routine 09/13/2024 7:37 AM MUSHROOM PACKER CBC WITH PLATELETS Routine 09/13/2024 7: 37 AM MUSHROOM PACKER BASIC METABOLIC PANEL Routine 09/13/2024 7:[address] CHEST PULMONARY EMBOLISM W CONTRAST STAT 09/12/2024 4:00 PM MUSHROOM PACKER BLOOD CULTURE STAT 09/12/2024 3:20 PM MUSHROOM PACKER BLOOD CULTURE STAT 09/12/2024 3:20 PM MUSHROOM PACKER MAGNESIUM Add-On 09/12/2024 3:20 PM MUSHROOM PACKER PROCALCITONIN Add-On 09/12/2024 3:20 PM MUSHROOM PACKER BLOOD GAS VENOUS STAT 09/12/2024 3:20 PM MUSHROOM PACKER LACTIC ACID WHOLE BLOOD STAT 09/12/2024 3:20 PM MUSHROOM PACKER TROPONIN T, HIGH SENSITIVITY STAT 09/12/2024 3:20 PM MUSHROOM PACKER CBC WITH PLATELETS & DIFFERENTIAL STAT 09/12/2024 2:11 PM MUSHROOM PACKER RBC AND PLATELET MORPHOLOGY STAT 09/12/2024 2:11 PM MUSHROOM PACKER CBC WITH PLATELETS AND DIFFERENTIAL STAT 09/12/2024 2:11 PM MUSHROOM PACKER EXTRA RED TOP TUBE STAT 09/12/2024 2: 11 PM MUSHROOM PACKER EXTRA BLUE TOP TUBE STAT 09/12/2024 2 :11 PM MUSHROOM PACKER D DIMER QUANTITATIVE STAT 09/12/2024 2:11 PM MUSHROOM PACKER TROPONIN T, HIGH SENSITIVITY STAT 09/12/2024 2:11 PM MUSHROOM PACKER BASIC METABOLIC PANEL STAT 09/12/2024 2:11 PM MUSHROOM PACKER EXTRA TUBE STAT 09/12/2024 2:11 PM MUSHROOM PACKER XR CHEST 2 VIEWS STAT 09/12/2024 1:52 PM MUSHROOM PACKER EKG 12-LEAD, TRACING ONLY STAT 09/12/2024 1:39 PM MUSHROOM PACKER INFLUENZA A/B, RSV AND SARS-COV2 PCR STAT 09/12/2024 1:25 PM MUSHROOM PACKER EKG CARDIAC - HIM SCAN 12:00 AM MUSHROOM PACKER HIV ANTIGEN ANTIBODY COMBO Routine 11/12/2011 7:25 AM CDT ACUTE HEPATITIS PANEL Routine 11/12/2011 7:25 AM CDT from Last 3 Months or Most Recently Relevant to Health Maintenance Results * (ABNORMAL) Magnesium (09/13/2024 7:37 AM MUSHROOM PACKER) Only the most recent of2 resultswithin the time period is included. Magnesium 2.7(H) 1.7 - 2.3 mg/dL 09/13/2024 8:14 AM MUSHROOM PACKER [facility] Blood STRUCTURE OF LEFT HAND / Unknown Venipuncture / Unknown 09/13/2024 7:37 AM MUSHROOM PACKER 09/13/2024 7:43 AM MUSHROOM PACKER us Sinan Mcghee MD LAB - BLOOD ORDERABLES Final Res ult [facility] [address] Lab (1st floor, no room number) [place] [address], [facility] * (ABNORMAL) Basic metabolic panel (09/13/2024 7:37 AM MUSHROOM PACKER) Only the most recent of2 resultswithin the time period is included. Pathologist [facility] Sodium 135 135 - 145 mmol/L 09/13/2024 8:14 AM MUSHROOM PACKER LABORATORY Potassium 3.8 3.4 - 5.3 mmol/L 09/13/2024 8:14 AM [facility] Chloride 97(L) 98 - 107 mmol/L 09/13/2024 8:14 AM [facility] Carbon Dioxide (CO2) 23 22 - 29 mmol/L 09/13/2024 8:14 AM [facility] Anion Gap 15 7 - 15 mmol/L 09/13/2024 8:14 AM [facility] Urea Nitrogen 15.2 6.0 - 20.0 mg/dL 09/13/2024 8:14 AM [facility] Creatinine 0.75 0.67 - 1.17 mg/dL 09/13/2024 8:14 AM MUSHROOM PACKER LABORATORY GFR Estimate >90 >60 mL/min/1.7 3m2 09/13/2024 8:14 AM [facility] Comment:eGFR calculated 2020 CKD-EPI equation. Calcium 8.7(L) 8.8 - 10.4 mg/dL 09/13/2024 8:14 AM [facility] Glucose 129(H) 70 - 99 mg/dL 09/13/2024 8:14 AM [facility] Blood STRUCTURE OF LEFT HAND / Unknown Venipuncture / Unknown 09/13/2024 7:37 AM MUSHROOM PACKER 09/13/2024 7:43 AM MUSHROOM PACKER us Sinan Mcghee MD LAB - BLOOD ORDERABLES Final Res ult LABORATORY [facility] [address] Lab (1st floor, no room number) [place] [address], [facility] * (ABNORMAL) CBC with platelets (09/13/2024 7:37 AM MUSHROOM PACKER) [facility] WBC Count 6.2 4.0 - 11.0 10e3/uL 09/13/2024 7:48 AM MUSHROOM PACKER [facility] RBC Count 5.26 4.40 - 5.90 10e6/uL 09/13/2024 7:48 AM MUSHROOM PACKER [facility] Hemoglobin 13.5 13.3 - 17.7 g/dL 09/13/2024 7:48 AM MUSHROOM PACKER [facility] Hematocrit 40.4 40.0 - 53.0 % 09/13/2024 7:48 AM MUSHROOM PACKER [facility] MCV 77(L) 78 - 100 fL 09/13/2024 7:48 AM MUSHROOM PACKER [facility] MCH 25.7(L) 26.5 - 33.0 pg 09/13/2024 7:48 AM MUSHROOM PACKER [facility] MCHC 33.4 31.5 - 36.5 g/dL 09/13/2024 7:48 AM MUSHROOM PACKER [facility] RDW 13.5 10.0 - 15.0 % 09/13/2024 7:48 AM MUSHROOM PACKER [facility] Platelet Count 303 150 - 450 10e3/uL 09/13/2024 7:48 AM MUSHROOM PACKER [facility] Blood STRUCTURE OF LEFT HAND / Unknown Venipuncture / Unknown 09/13/2024 7:37 AM MUSHROOM PACKER 09/13/2024 7:43 AM MUSHROOM PACKER us Sinan Mcghee MD LAB - BLOOD ORDERABLES Final Res ult [facility] [address] Lab (1st floor, no room number) [place] [address], [facility] * CT Chest Pulmonary Embolism w Contrast (09/12/2024 4:00 PM MUSHROOM PACKER) Anatomical Region Laterality Modality Chest, SUBRAD CT BODY, UMP CT CHEST Computed Tomography 09/12/2024 4:00 PM MUSHROOM PACKER Impressions 09/12/2024 4:11 PM MUSHROOM PACKER IMPRESSION: 1. Multifocal pneumonia. 2. No pulmonary embolus. Narrative 09/12/2024 4:11 PM MUSHROOM PACKER EXAM: CT CHEST PULMONARY EMBOLISM W CONTRAST LOCATION: [facility] DATE: 09/12/2024 INDICATION: shortness of breath COMPARISON: [...] CT CHEST PULMONARY EMBOLISM W CONTRAST LOCATION: [facility] DATE: 09/12/2024 INDICATION: shortness of breath COMPARISON: [...] 2. No pulmonary embolus. Smita Calderon MD [facility] ORDERABLE S Final Result * Troponin T, High Sensitivity (09/12/2024 3:20 PM MUSHROOM PACKER) Only the most recent of2 resultswithin the time period is included. Pathologist [facility] Troponin T, High Sensitivity 9 <=22 ng/L 09/12/2024 4:00 PM MUSHROOM PACKER LABORATORY Comment: Either a High Sensitivity Troponin [...] Unknown Venipuncture / Unknown 09/12/2024 3:20 PM MUSHROOM PACKER 09/12/2024 3:39 PM MUSHROOM PACKER us Smita Calderon MD LAB - BLOOD IRENA LOPEZ Final Result LABORATORY [facility] [address] [facility] Lab (1st floor, no room number) [place] [address] * (ABNORMAL) Procalcitonin (09/12/2024 3:20 PM MUSHROOM PACKER) [facility] Procalcitonin 1.22(H) <0.50 ng/mL 09/12/2024 4:37 PM MUSHROOM PACKER LABORATORY Comment: Interpretation and Recommendations <0.5 ng/mL: Systemic bacterial infection unlikely. Local bacterial infection is possible. 0.5-1.99 ng/mL: Systemic bacterial infection possible, but various other conditions are known to induce PCT as well. >=2.00 ng/mL: Systemic bacterial infection likely, unless other causes are known. Decision to start antibiotics should not be based on procalcitonin level alone. See Procalcitonin Guidance document for more details. [email or web address] ibiot [email or web address] Factors that may affect PCT levels (not [...] Unknown Venipuncture / Unknown 09/12/2024 3:20 PM MUSHROOM PACKER 09/12/2024 3:39 PM MUSHROOM PACKER Sinan Mcghee MD LAB - BLOOD ORDERABLES Final Res ult Performing Organization Address City/[facility]/ZIP Co de Phone Number [facility] [address] Lab (1st floor, no room number) [place] [phone] * Lactic acid whole blood (09/12/2024 3:20 PM MUSHROOM PACKER) Lactic Acid 1.6 0.7 - 2.0 mmol/L 09/12/2024 3:44 PM MUSHROOM PACKER LABORATORY Blood, venous BLOOD SPECIMEN / Unknown Venipuncture / Unknown 09/12/2024 3:20 PM MUSHROOM PACKER 09/12/2024 3:39 PM MUSHROOM PACKER Smita Calderon MD LAB - BLOOD ORDCastillo LOPEZ Final Result [facility] [address] Lab (1st floor, no room number) [place] [address] * (ABNORMAL) Blood gas venous (09/12/2024 3:20 PM MUSHROOM PACKER) pH Venous 7.44(H) 7.32 - 7.43 09/12/2024 3:44 PM MUSHROOM PACKER [facility] pCO2 Venous 45 40 - 50 mm Hg 09/12/2024 3:44 PM MUSHROOM PACKER LABORATORY pO2 Venous 17(L) 25 - 47 mm Hg 09/12/2024 3:44 PM MUSHROOM PACKER [facility] Bicarbonate Venous 31(H) 21 - 28 mmol/L 09/12/2024 3:44 PM MUSHROOM PACKER [facility] Base Excess/Deficit Venous 5.3(H) -3.0 - 3.0 mmol/L 09/12/2024 3:44 PM MUSHROOM PACKER [facility] FIO2 2 ARUN 09/12/2024 3:44 PM MUSHROOM PACKER [facility] Comment:2 liters NC Oxyhemoglobin Venous 24(L) 70 - 75 % 09/12/2024 3:44 PM MUSHROOM PACKER [facility] O2 Sat, Venous 24.6(L) 70.0 - 75.0 % 09/12/2024 3:44 PM MUSHROOM PACKER [facility] Blood, venous BLOOD SPECIMEN / Unknown Venipuncture / Unknown 09/12/2024 3:20 PM MUSHROOM PACKER 09/12/2024 3:39 PM MUSHROOM PACKER Narrative [facility] - 09/12/2024 3:44 PM MUSHROOM PACKER In healthy individuals, oxyhemoglobin (O2Hb) and oxygen saturation (SO2) are approximately equal. In the presence of dyshemoglobins, oxyhemoglobin can be considerably lower than oxygen saturation. Smita Calderon MD LAB - BLOOD ORDE RABLES Final Result LABORATORY [facility] [address] Lab (1st floor, no room number) [place] [address] * Blood Culture Peripheral Blood (09/12/2024 3:20 PM MUSHROOM PACKER) Only the most recent of2 resultswithin the time period is included. Culture No Growth 09/17/2024 6:16 PM MUSHROOM PACKER [facility] Blood BLOOD SPECIMEN / Unknown Venipuncture / Unknown 09/12/2024 3:20 PM MUSHROOM PACKER 09/12/2024 3:39 PM MUSHROOM PACKER Smita Calderon MD LAB - MICRO GENE RAL ORDERABLES Final Result [facility] Inf. Diseases Di[facility]. Lab [address] [facility] [place] [address] * Extra Red Top Tube (09/12/2024 2:11 PM MUSHROOM PACKER) Hold Specimen [facility] 09/12/2024 3:16 PM MUSHROOM PACKER [facility] Blood BLOOD SPECIMEN / Unknown Venipuncture / Unknown 09/12/2024 2:11 PM MUSHROOM PACKER 09/12/2024 2:15 PM MUSHROOM PACKER us Smita Calderon MD LAB - BLOOD ORDE JESSICA Final Result [facility] [address] Lab (1st floor, no room number) [place] [address] * Extra Blue Top Tube (09/12/2024 2:11 PM MUSHROOM PACKER) Hold Specimen [facility] 09/12/2024 3:16 PM MUSHROOM PACKER [facility] Blood BLOOD SPECIMEN / Unknown Venipuncture / Unknown 09/12/2024 2:11 PM MUSHROOM PACKER 09/12/2024 2:15 PM MUSHROOM PACKER us Smita Calderon MD LAB - BLOOD ORDE JESSICA Final Result [facility] [address] Lab (1st floor, no room number) [place] [address], [facility] * RBC and Platelet Morphology (09/12/2024 2:11 PM MUSHROOM PACKER) [facility] RBC Morphology Confirmed RBC Indices 09/12/2024 3:22 PM MUSHROOM PACKER [facility] Platelet Assessment Automated Count Confirmed. Platelet morphology is normal. Automated Count Confirmed. Platelet morphology is normal. [facility] 09/12/2024 3:22 PM MUSHROOM PACKER [facility] Blood BLOOD SPECIMEN / Unknown Venipuncture / Unknown 09/12/2024 2:11 PM MUSHROOM PACKER 09/12/2024 2:15 PM MUSHROOM PACKER us Smita Calderon MD LAB - BLOOD ORDE JESSICA Final Result [facility] [address] Lab (1st floor, no room number) [place] [address], [facility] * (ABNORMAL) CBC with platelets and differential (09/12/2024 2:11 PM MUSHROOM PACKER) [facility] Signature WBC Count 6.7 4.0 - 11.0 10e3/uL 09/12/2024 3:22 PM MUSHROOM PACKER [facility] RBC Count 5.61 4.40 - 5.90 10e6/uL 09/12/2024 3:22 PM MUSHROOM PACKER [facility] Hemoglobin 14.5 13.3 - 17.7 g/dL 09/12/2024 3:22 PM MUSHROOM PACKER [facility] Hematocrit 43.1 40.0 - 53.0 % 09/12/2024 3:22 PM MUSHROOM PACKER [facility] MCV 77(L) 78 - 100 fL 09/12/2024 3:22 PM MUSHROOM PACKER [facility] MCH 25.8(L) 26.5 - 33.0 pg 09/12/2024 3:22 PM MUSHROOM PACKER [facility] MCHC 33.6 31.5 - 36.5 g/dL 09/12/2024 3:22 PM MUSHROOM PACKER [facility] RDW 13.6 10.0 - 15.0 % 09/12/2024 3:22 PM MUSHROOM PACKER [facility] Platelet Count 256 150 - 450 10e3/uL 09/12/2024 3:22 PM MUSHROOM PACKER [facility] % Neutrophils 79 % 09/12/2024 3:22 PM MUSHROOM PACKER [facility] % Lymphocytes 9 % 09/12/2024 3:22 PM MUSHROOM PACKER [facility] % Monocytes 10 % 09/12/2024 3:22 PM MUSHROOM PACKER [facility] % Eosinophils 0 % 09/12/2024 3:22 PM MUSHROOM PACKER [facility] % Basophils 0 % 09/12/2024 3:22 PM MUSHROOM PACKER [facility] % Immature Granulocytes 2 % 09/12/2024 3:22 PM MUSHROOM PACKER [facility] NRBCs per 100 WBC 0 <1 /100 025 3:22 PM MUSHROOM PACKER [facility] Absolute Neutrophils 5.3 1.6 - 8.3 10e3/uL 09/12/2024 3:22 PM MUSHROOM PACKER [facility] Absolute Lymphocytes 0.6(L) 0.8 - 5.3 10e3/uL 09/12/2024 3:22 PM MUSHROOM PACKER [facility] Absolute Monocytes 0.7 0.0 - 1.3 10e3/uL 09/12/2024 3:22 PM MUSHROOM PACKER [facility] Absolute Eosinophils 0.0 0.0 - 0.7 10e3/uL 09/12/2024 3:22 PM MUSHROOM PACKER [facility] Absolute Basophils 0.0 0.0 - 0.2 10e3/uL 09/12/2024 3:22 PM MUSHROOM PACKER [facility] Absolute Immature Granulocytes 0.1 <=0.4 10e3/uL 09/12/2024 3:22 PM MUSHROOM PACKER [facility] Absolute NRBCs 0.0 10e3/uL 09/12/2024 3:22 PM MUSHROOM PACKER [facility] Blood BLOOD SPECIMEN / Unknown Venipuncture / Unknown 09/12/2024 2:11 PM MUSHROOM PACKER 09/12/2024 2:15 PM MUSHROOM PACKER Smita Calderon MD LAB - BLOOD ORDE JESSICA Final Result [facility] [address] Lab (1st floor, no room number) [place] [address], [facility] * (ABNORMAL) D dimer quantitative (09/12/2024 2:11 PM MUSHROOM PACKER) [facility] D-Dimer Quantitative 0.75(H) 0.00 - 0.50 ug/mL FEU 09/12/2024 2:29 PM MUSHROOM PACKER [facility] Blood BLOOD SPECIMEN / Unknown Venipuncture / Unknown 09/12/2024 2:11 PM MUSHROOM PACKER 09/12/2024 2:15 PM MUSHROOM PACKER Narrative [facility] - 09/12/2024 2:29 PM MUSHROOM PACKER This D-dimer assay is intended for use in conjunction with a clinical pretest probability assessment model to exclude pulmonary embolism (PE) and deep venous thrombosis (DVT) in outpatients suspected of PE or DVT. The cut-off value is 0.50 ug/mL FEU. us Smita Calderon MD LAB - BLOOD ORDE JESSICA Final Result [facility] [address] Lab (1st floor, no room number) [place] [address], [facility] * XR Chest 2 Views (09/12/2024 1:52 PM MUSHROOM PACKER) Anatomical Region Laterality Modality Chest Computed Radiogr aphy 09/12/2024 1:52 PM MUSHROOM PACKER Impressions 09/12/2024 1:55 PM MUSHROOM PACKER IMPRESSION: Patchy infiltrates in the mid and lower lungs bilaterally typical of bilateral pneumonia. Narrative 09/12/2024 1:55 PM MUSHROOM PACKER EXAM: XR CHEST 2 VIEWS LOCATION: [facility] DATE: 09/12/2024 INDICATION: shortness of breath, tachypneic COMPARISON: None. Procedure Note Ed Joseph MD - 09/12/2024 EXAM: XR CHEST 2 VIEWS LOCATION: [facility] DATE: 09/12/2024 INDICATION: shortness of breath, tachypneic COMPARISON: None. IMPRESSION: Patchy infiltrates in the mid and lower lungs bilaterallytypical of bilateral pneumonia. us Smita Calderon MD IMG DIAGNOSTIC I MAGING ORDERABLES Final Result * EKG 12-lead, tracing only (09/12/2024 1:39 PM MUSHROOM PACKER) Systolic Blood Pressure mmHg RADIOLOGY RESULTS Diastolic Blood Pressure mmHg RADIOLOGY RESULTS Ventricular Rate 88 BPM RAD IOLOGY RESULTS Atrial Rate 88 BPM RADIOLOG Y RESULTS VT Interval 144 ms RADIOLOG Y RESULTS QRS Duration 92 ms RADIOLO GY RESULTS QT 358 ms RADIOLOGY RESULTS QTc 433 ms RADIOLOGY RESULTS P [place] 10 degrees RADIOLOGY RESULTS R AXIS 31 degrees RADIOLOGY RESULTS T [place] 19 degrees RADIOLOGY RESULTS Interpretation ECG Sinus rhythm Normal ECG No previous ECGs available Confirmed by - EMERGENCY ROOM, PHYSICIAN ([id number]), publication editor FIDEL MANDUJANO ([id number]) on 09/12/2024 1:42:55 PM RADIOLOGY RESULTS 09/12/2024 1:39 PM MUSHROOM PACKER 09/12/2024 1:42 PM MUSHROOM PACKER us Smita Calderon MD ECG ORDERABLES Edited Result - Final RADIOLOGY RESULTS * (ABNORMAL) Influenza A/B, RSV and SARS-CoV2 PCR (COVID-19) Nasopharyngeal (09/12/2024 1:25 PM MUSHROOM PACKER) Influenza A PCR Positive(A) Negative 09/12/2024 2:23 PM MUSHROOM PACKER [facility] Influenza B PCR Negative Negative 09/12/2024 2:23 PM MUSHROOM PACKER [facility] RSV PCR Negative Negative 09/12/2024 2:23 PM MUSHROOM PACKER [facility] SARS CoV2 PCR Negative Negative 09/12/2024 2:23 PM MUSHROOM PACKER [facility] Comment:NEGATIVE: SARS-CoV-2 (COVID-19) RNA not detected, presumed negative. Swab NASOPHARYNGEAL STRUCTURE / Unknown Non-blood Collection / Unknown 09/12/2024 1:25 PM MUSHROOM PACKER 09/12/2024 1:29 PM MUSHROOM PACKER Narrative [facility] - 09/12/2024 2:23 PM MUSHROOM PACKER Testing was performed using the Xpert Xpress CoV2/Flu/RSV Assay on the Accipiter RadarXpert Instrument. This test should be ordered for [...] management. This test was validated by the [facility]. These laboratories are certified under the Clinical Laboratory Improvement Amendments of 1988 (CLIA-88) as qualified to perfom high complexity laboratory testing. Smita Calderon MD LAB - MICRO GENE RAL ORDERABLES Final Result LABORATORY [facility] [address] [facility] Lab (1st floor, no room number) [place] [address], [facility] * EKG Cardiac - HIM Scan (09/12/2024 12:00 AM MUSHROOM PACKER) 09/12/2024 Provider Outside ECG ORDERABLES Final Result * Acute hepatitis panel (11/12/2011 7:25 AM CDT) Hepatitis A Antibody IgM Negative (Negative) 11/12/2011 9:27 AM CDT [facility] Hepatitis B Core Antibody IgM Negative (Negative) 11/12/2011 9:27 AM CDT [facility] Hepatitis B Surface Antigen Negative (Negative) 11/12/2011 9:27 AM CDT [facility] Hepatitis C Antibody Negative (Negative) 11/12/2011 9:27 AM CDT [facility] 11/12/2011 7:25 AM CDT 11/12/2011 7:00 AM CDT Result [facility] David Maporiusman [employer] LAB - BLOOD OR DERABLES Final Result Performing Organization Address City/State/[facility] Co de Phone Number O LAB [address] [address], [facility] [address] [address] * HIV Antigen Antibody Combo (11/12/2011 7:25 AM CDT) HIV Antigen Antibody Combo Negative 11/12/2011 8:23 AM CDT [facility] 11/12/2011 7:25 AM CDT 11/12/2011 7:00 AM CDT Narrative [facility] - 11/12/2011 8:23 AM CDT Effective 06/06/10, methodology is HIV 1/2 Antigen/Antibody Combination. Prior to 06/06/10, methodology was HIV 1/2 Antibody only. David Maporilucianoeva [facility] - BLOOD OR DERABLES Final Result [facility] [address] [place] [address], [facility] [address] [place] [address] from Last 3 Months or Most Recently Relevant to Health Maintenance Advance Directives For more information, please contact: [phone] * Full Code (Latest Code Status on File) Date Activated Date Inactivated Comments 09/13/2024 10:37 AM Question Answer Comments Code status determined by: Discussion with sunny nt/ legal decision maker * Full Code Date Activated Date Inactivated Comments 09/12/2024 5:43 PM 09/13/2024 10:37 AM All basic and advanced life-sustaining interventions are performed as appropriate Question Answer Comments Code status determined by: Discussion with sunny nt/ legal decision maker Care Teams Heatset Winder Operator Relationship Specialty Start Date End Date No Ref-Primary, Physician PCP - General 02/05/24
--- OUTSIDE RECORDS SUMMARY | 2024-10-11 13:40 | XMS_ITS | Clinical Summary ---
Author Organization [employer] [facility] Address [address] [place] [id number] Care Team Providers Care Necktie Turner Name Role Phone Pcp, No Primary Care Provider Unavailabl e Allergies No known active allergies Medications No known medications Active Problems Problem Noted Date Diagnosed Date Elevated blood pressure read ing without diagnosis of hypertension 02/15/2024 Social History Tobacco Use Types Packs/Day Years Used Date Smoking Tobacco: Former Cigarettes S tarted: 2016 Tobacco Cessation:Counseling Given: Not Answered Comments:Uses E-cig Social Connections Answer Date Recorded Do you often feel lonely or isolated from those around you? 4 02/12/2024 Financial Resource Strain Answer Date R ecorded Difficulty of Paying Living Expenses 1 02/12/2024 Difficulty of Paying Living Expenses 2 02/12/2024 Food Insecurity Answer Date Recorded Do you worry your food will run out before you are able to buy more? 1 02/12/2024 Transportation Needs Answer Date Record ed Does lack of transportation keep you from medica l appointments? 1 02/12/2024 Does lack of transportation keep you from work, meetings or getting things that you need? 1 02/12/2024 Housing Stability Answer Date Recorded What is your housing situation today? 1 02/12/2024 Utilities Answer Date Recorded Do you have trouble paying f or utilities (for example, heat, electricity, water, phone)? 2 02/12/2024 Sex and Gender Information Value Date Recorded Sex Assigned at Not on file Legal Sex Male 2:06 PM CDT Gender Identity Not on file Sexual Orientation Not on file Obstetrics History Last Filed Vital Signs Vital Sign Reading Time Taken Comments Blood Pressure 164/105 04/04/2024 7:47 AM CDT Pulse 85 04/04/2024 7:47 AM CDT Temperature - - Respiratory Rate - - Oxygen Saturation 97% 04/04/2024 7:47 AM CDT Inhaled Oxygen Concentration - - Weight 127 kg (280 lb) 04/04/2024 7:47 AM CDT Height - - Body Mass Index - - Plan of Treatment Health Maintenance Due Date Last Done Comments Tdap 1998 Depression screening for age 12+ 1999 HIV for age 15-65 2002 BMI (ht and wt on same day) for age 18+ 2005 Hepatitis C screening for ag e 18-79 2005 Tetanus booster 2007 Lipids for age 35-44 2022 COVID-19 vaccine series ( season) 2024 Influenza for age 9-49 04/10/2024 Pneumococcal series for age 6-49 Aged Out No longer eligible based on patient's age to complete this topic Insurance OWCP [id number] [place] [id number] Care Teams Necktie Turner Relationship Specialty Start Date End Date Pcp, No . PCP - General 02/12/24
[2024-10-11 13:47] VITALS: BP 164/96; PULSE 84; RESP 20; TEMP 36.5; O2SAT 99
--- NOTE | 2024-10-11 14:32 | ED_ITS ---
HPI - General Adult General Chief complaint: Abdominal Pain Stated complaint: Upper abdominal pain Time Seen by Provider: 10/11/24 14:28 History of Present Illness HPI narrative: Arrives with mid abdomen/ epigastric pain that started suddenly about one hour ago, with associated diaphoresis and nausea. Alert and oriented, pain has improved since arrival, ABCs intact. 39-year-old man presenting to the emergency department with concern of abdominal pain. Very intense epigastric area pain that he says was worse with palpation. Lasted about an hour. He felt like vomiting but did not. Was sweaty. Been munching on beef jerky today. He recalls a similar event about a month ago but did not last as long nor was it quite as intense. Pain has settled out. Does not feel like he needs any treatment intervention now. Does not drink alcohol. Pain does not radiate into the back. Family history with mom with gallbladder disease he thinks. Related Data Previous Rx's ?Medication ?Instructions ?Recorded mupirocin 2 % topical ointment 1 applic topical TID #22 grams 11/25/23 cephalexin 500 mg capsule 500 mg PO TID #21 caps 11/27/23 omeprazole 40 mg capsule,delayed 40 mg PO DAILY #15 caps 10/11/24 release Allergies Allergy/AdvReac Type Severity Reaction Status Date / Time No Known Drug Allergies Allergy Verified 11/25/23 10:18 Review of Systems Status of ROS: Reports: 6 or more systems reviewed and unremarkable except as noted in History and below Exam Narrative: Exam Narrative: Tall, large man. Has been sleeping in this cold room. Breathing easily. Lungs are clear. Heart in regular rate and rhythm. Distant. Abdomen is soft and nontender at this time. Includes no flank pain. He describes area of tenderness in the epigastrium and a little to the left hypogastrium. He does not have any flank tenderness. Const: Vital Signs, click to edit/add: Vital Signs - 24 hr 10/11/24 13:47 10/11/24 15:00 Temperature 97.7 F Pulse Rate [Pulse Oximeter] 84 90 Respiratory Rate 20 Blood Pressure [Ri ght Upper Arm] 164/96 H 150/96 H Pulse Oximetry 99 98 Oxygen Delivery Me thod Room Air Room Air Documenting provider has reviewed patient's vital signs: yes Course Vital Signs Vital signs: Initial Vital Signs Temperature 97.7 F 10/11/24 13:47 Temperature Source Temporal Artery Scan 10/11/24 13:47 Pulse Rate 84 10/11/24 13:47 Respiratory Rate 20 10/11/24 13:47 Blood Pressure 164/96 H 10/11/24 13:47 Blood Pressure Mean 118 H 10/11/24 13:47 Pulse Oximetry 99 10/11/24 13:47 Oxygen Delivery Method Room Air 10/11/24 13:47 Vital Signs Temperature 97.7 F 10/11/24 13:47 Pulse Rate 84 10/11/24 13:47 Respiratory Rate 20 10/11/24 13:47 Blood Pressure 164/96 H 10/11/24 13:47 Pulse Oximetry 99 10/11/24 13:47 Oxygen Delivery Method Room Air 10/11/24 13:47 Temperature 97.7 F 10/11/24 13:47 Pulse Rate 90 10/11/24 15:00 Respiratory Rate 20 10/11/24 13:47 Blood Pressure 150/96 H 10/11/24 15:00 Pulse Oximetry 98 10/11/24 15:00 Oxygen Delivery Method Room Air 10/11/24 15:00 Medical Decision Making MDM Narrative Medical decision making narrative: Will look at evidence of cardiac injury. Also potential gallbladder disease. Maybe rolled a stone. Dissection in differential as well. Doubtful pancreatitis. I suppose could be diverticulitis or constipation/intestinal colic. Gastritis? History inconsistent with ulcer. Does not appear to need any interventions at this time. Barring findings in labs would hold on imaging. Labs show some elevation in AST. Mild elevation also in direct bilirubin. Requested limited abdominal ultrasound Discussed findings and with glue sprayer of biliary sludge Radiology over-read below INDICATION: 1 hour of intense epigastric pain COMPARISON: None TECHNIQUE: Ultrasound abdomen, limited, utilizing grayscale and color Doppler. FINDINGS: Liver: The liver is within normal limits in size and echogenicity. No focal liver lesions identified. Gallbladder: Mobile sludge is seen within the gallbladder lumen. No stones. No wall thickening or pericholecystic fluid. Negative sonographic Pugh sign. Bile ducts: The common bile duct measures 6 mm in diameter without obstructing stones or lesions. Pancreas: Normal where seen. Right kidney: The right kidney measures 12 cm in length. No hydronephrosis, calculus, or mass. Vascular: Normal caliber abdominal aorta. The IVC appears patent. The main portal vein is patent with normal flow direction. IMPRESSION: 1. No sonographic evidence of cholelithiasis or acute cholecystitis. 2. No focal hepatic lesions. Dictated by Alexx Rai MD @ 10/11/2024 4:32:08 PM No further events during time in the emergency department overall feeling better. He was looking forward to discharge. I think most likely this pain is/was related to biliary colic See patient discharge plan for further discussion Continue to focus on hydration; ideally with more water. Continue to work on having a healthy diet. You appear to have some sludge in your gallbladder. You might consider an acid clinical specialist medication for a couple weeks and then reassess. Will send in a prescription of omeprazole. Return for increase in persistent abdominal pain, intractable vomiting, associated fever. Medical Records Medical records reviewed: Yes I reviewed the patient's medical records Lab Data Lab results reviewed: Yes I reviewed the patient's lab results Labs: Lab Results 10/11/24 10/11/24 10/11/24 Range/Units 14:47 15:00 15:00 WBC 12.33 H (4.50-11.00) K/uL RBC 5.17 (4.30-5.90) m/uL Hgb 13.3 L (13.5-17.5) gm/dL Hct 41.4 (37.0-53.0) % MCV 80 (80-100) fL MCH 26 (26-34) pg MCHC 32 (32-36) gm/dL RDW Coeff of Spencer 14.2 (11.5-15.5) % Plt Count 297 (140-440) K/uL Neut % (Auto) 81.8 H (42.0-72.0) % Lymph % (Auto) 8.2 L (20-44) % [place] % (Auto) 8.3 (0.0-11.0) % Eos % (Auto) 0.8 (0.0-7.0) % Baso % (Auto) 0.3 (0.0-3.0) % Neut # (Auto) 10.10 H (1.7-7.0) K/uL Lymph # (Auto) 1.00 (0.90-2.90) K/uL [place] # (Auto) 1.00 H (0.00-0.90) K/UL Eos # (Auto) 0.10 (0.00-0.50) K/uL Baso # (Auto) 0.00 (0.00-0.30) K/uL Abs Immat Gran (auto) 0.10 (0.00-0.30) K/uL Imm/Tot Granulo (auto) 0.6 % D-Dimer Quant (PE/DVT) < 0.27 (0.00-0.50) ug/ml Sodium 137 Cancelled (135-149) mmol/L Potassium 4.3 (3.6-5.1) mmol/L Chloride (96-114) mmol/L Carbon Dioxide (20-32) mmol/L Anion Gap (7-15) mEq/L BUN (5-24) mg/dL Creatinine (0.5-1.5) mg/dL Estimated Creat Clear Estimated GFR ml/min Glucose (60-115) mg/dL Calcium (8.4-10.6) mg/dL Total Bilirubin (0.1-1.5) mg/dL Direct Bilirubin (0.0-0.5) mg/dL AST (12-35) U/L ALT (4-50) U/L Alkaline Phosphatase (40-150) U/L Troponin I (0.01-0.04) ng/mL C-Reactive Protein (0.5-1.0) mg/dL Total Protein (6.0-8.3) g/dL Albumin (3.3-5.0) g/dL Lipase (23-300) U/L POC Troponin I 0.00 L (0.01-0.04) ng/ml 10/11/24 10/11/24 10/11/24 Range/Units 15:00 15:00 15:00 WBC (4.50-11.00) K/uL RBC (4.30-5.90) m/uL Hgb (13.5-17.5) gm/dL Hct (37.0-53.0) % MCV (80-100) fL MCH (26-34) pg MCHC (32-36) gm/dL RDW Coeff of Spencer (11.5-15.5) % Plt Count (140-440) K/uL Neut % (Auto) (42.0-72.0) % Lymph % (Auto) (20-44) % [place] % (Auto) (0.0-11.0) % Eos % (Auto) (0.0-7.0) % Baso % (Auto) (0.0-3.0) % Neut # (Auto) (1.7-7.0) K/uL Lymph # (Auto) (0.90-2.90) K/uL [place] # (Auto) (0.00-0.90) K/UL Eos # (Auto) (0.00-0.50) K/uL Baso # (Auto) (0.00-0.30) K/uL Abs Immat Gran (auto) (0.00-0.30) K/uL Imm/Tot Granulo (auto) % D-Dimer Quant (PE/DVT) (0.00-0.50) ug/ml Sodium (135-149) mmol/L Potassium Cancelled (3.6-5.1) mmol/L Chloride 101 Cancelled (96-114) mmol/L Carbon Dioxide 27 Cancelled (20-32) mmol/L Anion Gap 9 (7-15) mEq/L BUN (5-24) mg/dL Creatinine (0.5-1.5) mg/dL Estimated Creat Clear Estimated GFR ml/min Glucose (60-115) mg/dL Calcium (8.4-10.6) mg/dL Total Bilirubin (0.1-1.5) mg/dL Direct Bilirubin (0.0-0.5) mg/dL AST (12-35) U/L ALT (4-50) U/L Alkaline Phosphatase (40-150) U/L Troponin I (0.01-0.04) ng/mL C-Reactive Protein (0.5-1.0) mg/dL Total Protein (6.0-8.3) g/dL Albumin (3.3-5.0) g/dL Lipase (23-300) U/L POC Troponin I (0.01-0.04) ng/ml 10/11/24 10/11/24 10/11/24 Range/Units 15:00 15:00 15:00 WBC (4.50-11.00) K/uL RBC (4.30-5.90) m/uL Hgb (13.5-17.5) gm/dL Hct (37.0-53.0) % MCV (80-100) fL MCH (26-34) pg MCHC (32-36) gm/dL RDW Coeff of Spencer (11.5-15.5) % Plt Count (140-440) K/uL Neut % (Auto) (42.0-72.0) % Lymph % (Auto) (20-44) % [place] % (Auto) (0.0-11.0) % Eos % (Auto) (0.0-7.0) % Baso % (Auto) (0.0-3.0) % Neut # (Auto) (1.7-7.0) K/uL Lymph # (Auto) (0.90-2.90) K/uL [place] # (Auto) (0.00-0.90) K/UL Eos # (Auto) (0.00-0.50) K/uL Baso # (Auto) (0.00-0.30) K/uL Abs Immat Gran (auto) (0.00-0.30) K/uL Imm/Tot Granulo (auto) % D-Dimer Quant (PE/DVT) (0.00-0.50) ug/ml Sodium (135-149) mmol/L Potassium (3.6-5.1) mmol/L Chloride (96-114) mmol/L Carbon Dioxide (20-32) mmol/L Anion Gap Cancelled (7-15) mEq/L BUN 19 Cancelled (5-24) mg/dL Creatinine 1.1 Cancelled (0.5-1.5) mg/dL Estimated Creat Clear Cancelled Estimated GFR 89 ml/min Glucose (60-115) mg/dL Calcium (8.4-10.6) mg/dL Total Bilirubin (0.1-1.5) mg/dL Direct Bilirubin (0.0-0.5) mg/dL AST (12-35) U/L ALT (4-50) U/L Alkaline Phosphatase (40-150) U/L Troponin I (0.01-0.04) ng/mL C-Reactive Protein (0.5-1.0) mg/dL Total Protein (6.0-8.3) g/dL Albumin (3.3-5.0) g/dL Lipase (23-300) U/L POC Troponin I (0.01-0.04) ng/ml 10/11/24 10/11/24 10/11/24 Range/Units 15:00 15:00 15:00 WBC (4.50-11.00) K/uL RBC (4.30-5.90) m/uL Hgb (13.5-17.5) gm/dL Hct (37.0-53.0) % MCV (80-100) fL MCH (26-34) pg MCHC (32-36) gm/dL RDW Coeff of Spencer (11.5-15.5) % Plt Count (140-440) K/uL Neut % (Auto) (42.0-72.0) % Lymph % (Auto) (20-44) % [place] % (Auto) (0.0-11.0) % Eos % (Auto) (0.0-7.0) % Baso % (Auto) (0.0-3.0) % Neut # (Auto) (1.7-7.0) K/uL Lymph # (Auto) (0.90-2.90) K/uL [place] # (Auto) (0.00-0.90) K/UL Eos # (Auto) (0.00-0.50) K/uL Baso # (Auto) (0.00-0.30) K/uL Abs Immat Gran (auto) (0.00-0.30) K/uL Imm/Tot Granulo (auto) % D-Dimer Quant (PE/DVT) (0.00-0.50) ug/ml Sodium (135-149) mmol/L Potassium (3.6-5.1) mmol/L Chloride (96-114) mmol/L Carbon Dioxide (20-32) mmol/L Anion Gap (7-15) mEq/L BUN (5-24) mg/dL Creatinine (0.5-1.5) mg/dL Estimated Creat Clear Estimated GFR Cancelled ml/min Glucose 94 Cancelled (60-115) mg/dL Calcium 8.7 Cancelled (8.4-10.6) mg/dL Total Bilirubin 1.0 (0.1-1.5) mg/dL Direct Bilirubin 0.7 H (0.0-0.5) mg/dL AST 81 H (12-35) U/L ALT 47 (4-50) U/L Alkaline Phosphatase 79 (40-150) U/L Troponin I < 0.01 L (0.01-0.04) ng/mL C-Reactive Protein 0.6 (0.5-1.0) mg/dL Total Protein 7.1 (6.0-8.3) g/dL Albumin 4.2 (3.3-5.0) g/dL Lipase 39 (23-300) U/L POC Troponin I (0.01-0.04) ng/ml ECG Data Attestation: I personally reviewed and interpreted this ECG as follows: (Normal sinus rhythm. Rate of 78.) Discharge Plan Discharge Clinical Impression: Acute epigastric pain, Sludge in gallbladder Patient Disposition: Home, Self-Care Condition: Improved Additional Instructions: Continue to focus on hydration; ideally with more water. Continue to work on having a healthy diet. You appear to have some sludge in your gallbladder. You might consider an acid clinical specialist medication for a couple weeks and then reassess. Will send in a prescription of omeprazole. Return for increase in persistent abdominal pain, intractable vomiting, associated fever. Prescriptions: New omeprazole 40 mg capsule,delayed release(DR/EC) 40 mg PO DAILY Qty: 15 0RF No Action mupirocin 2 % ointment 1 applic topical TID Qty: 22 0RF cephalexin 500 mg capsule 500 mg PO TID Qty: 21 0RF Follow Up/Referrals: Provider,Not a Local [Primary Care Provider] - Stand Alone Forms: [employer] Info Instructions
[2024-10-11 15:00] VITALS: BP 150/96; PULSE 90; O2SAT 98
--- OUTSIDE RECORDS SUMMARY | 2024-10-11 15:19 | XMS_ITS | Clinical Summary ---
Author Organization [employer] [facility] Address [address] [place] [id number] Care Team Providers Care Carton Gluing Machine Operator Name Role Phone Pcp, No Primary Care [...] age to complete this topic Insurance OWCP [id number] [place] [id number] Care Teams Carton Gluing Machine Operator Relationship Specialty Start Date End Date Pcp, No . PCP - General 02/12/24
--- OUTSIDE RECORDS SUMMARY | 2024-10-11 15:19 | XMS_ITS | Encounter Summary ---
Author Organization [place] Address [facility] 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 SYSTEM ADMINISTRATOR Gender Identity Not on file Sexual Orientation Not on file documented as of this encounter Plan of Treatment Not on file documented as of this encounter Visit Diagnoses Not on filedocumented in this encounter Additional Health Concerns Infection Onset Date Last Indicated Resolved Time Rule Out COVID-19 09/12/2024 09/12/2024 09/12/2024 2:23 PM LINUX UNIX SYSTEM ADMINISTRATOR Influenza 09/12/2024 09/12/2024 09/19/2024 11:4 1 PM LINUX UNIX SYSTEM ADMINISTRATOR documented as of this encounter Care Teams Forensics Analyst Relationship Specialty Start Date End Date No Ref-Primary, Physician PCP - General 02/05/24 documented as of this encounter
--- OUTSIDE RECORDS SUMMARY | 2024-10-11 15:19 | XMS_ITS | Encounter Summary ---
Author Organization [facility] Address [address] [place] [id number] Care Team Providers Care Cmo & President Name Role Phone No Ref-Primary, Physician Primary Care Provider Reason for Visit * Reason Comments Shortness of Breath * Auth/Cert (Routine) Specialty Diagnoses / Procedures Referred By Toro t Referred To Contact Med Surg Diagnoses SOB (shortness of breath) Influenza A Hypoxia Community acquired bacterial pneumonia [place] [address] [facility] [address] [place] [address] Phone: tel: fax: Referral ID Status Reason Start Date Expiration Date Visits Re quested Visits Authorized [id number] 1 1 Encounter Details Date Type Department Care Team (Late st Contact Info) Description 09/12/2024 1:46 PM CABLE PLACER - 09/13/2024 1:15 PM CABLE PLACER Emergency [place] [address] [facility] [address] [place] [address] Smita Calderon MD [facility] [address] [place], [place] [phone] Sinan Mcghee MD [address] [place], [place] [id number] Influenza A; Community acquired bacterial pneumonia; Hypoxia [...] in an abandoned building, in an overnight assisted, or couch-surfing.) Yes 09/12/2024 Are you worried [...] on file Legal Sex Male 3:41 AM CABLE PLACER Gender Identity Not on file Sexual Orientation Not on file documented as of this encounter Last Filed Vital Signs Vital Sign Reading Time Taken Comments Blood Pressure 134/88 09/13/2024 6:17 AM CABLE PLACER Pulse 74 09/13/2024 6:17 AM CABLE PLACER Temperature 37 C (98.6 F) 09/13/2024 6:17 AM CABLE PLACER Respiratory Rate 18 09/13/2024 6:17 AM CABLE PLACER Oxygen Saturation 95% 09/13/2024 6:17 AM CABLE PLACER Inhaled Oxygen Concentration - - Weight 115.8 kg (255 lb 4.7 oz) 09/13/2024 6:22 AM CABLE PLACER Height 188 cm (6' 2) 09/12/2024 1:18 PM CABLE PLACER Body Mass Index 32.78 09/12/2024 1:18 PM CABLE PLACER documented in this encounter Discharge Summaries * Sinan Mcghee MD - 09/13/2024 10:38 AM CST Images from the original note were not included. [facility] Discharge Summary Hospitalist Date of Admission: [...] T4 and A1c Labs:No lab results found. E PLACER documented in this encounter Medications at Time [...] Interventions/actions: other None Will continue to monitor. E PLACER documented in this encounter H&P Notes * Sinan Mcghee MD - 09/12/2024 4:00 PM CST [facility] History and Physical Hospitalist Date of Admission: [...] Narrative EXAM: XR CHEST 2 VIEWS LOCATION: [facility] DATE: 09/12/2024 INDICATION: shortness of breath, [...] encounter: 123.1 kg (271 lb 6.2 oz). E PLACER E PLACER documented in this encounter ED Notes * [place] RN - 09/12/2024 5:41 PM CST Report given to Ann LOPEZ E PLACER * Primo Resendiz RN - 09/12/2024 5:30 PM CST Bed: ED18 Expected date: Expected time: Means of arrival: Comments: ED 12 E PLACER * Amira Ontiveros RN - 09/12/2024 3:44 PM CST [facility] ED Nurse Handoff Report ED Chief complaint: Shortness of Breath . ED Diagnosis: Final diagnoses: None Allergies: No Known Allergies Code Status: Full Code Activity level - Baseline/Home: independent. Activity Level - Current: standby. Lift room needed: No. Bariatric: No Drug Inspector Needed: No Isolation: Yes. Infection: Not Applicable [...] for PEDS (2 gIntravenous $New Bag 09/12/24 3377) methylPREDNISolone Na Suc (solu-MEDROL) injection 125 mg (125 mg Intravenous $Given 09/12/24 924) magnesium sulfate 2 g in 50 mL sterile water intermittent infusion (2 g Intravenous $New Bag [id number]) oseltamivir (TAMIFLU) capsule 75 mg (75 mg Oral $Given 09/12/24 1416) azithromycin (ZITHROMAX) tablet 500 mg (500 mg Oral $Given 09/12/24 1537) Drips infusing: Yes For the majority of the shift this patient was Green. Interventions performed were n/a. Sepsis treatment initiated: No Cares/treatment/interventions/medications to be completed following ED care: IV ABX ED Nurse Name: Amira Ontiveros RN 3:44 PM E PLACER * Smita Calderon MD - 09/12/2024 1:47 [...] 1413 Normal sinus rhythm Rate 88 bpm. ID interval 144 ms. QRS duration 92 ms. [...] 12, 2024 Smita Calderon MD 09/12/24 1617 E PLACER * Yulisa Kapoor RN - 09/12/2024 1:20 PM CST Pt arrives with complaint of shortness of breath. Was at where he was prescribed antibiotics, analbuterol inhaler, low dose steroids, and told to come here if shortness of breath worsens. Patientoxygen 93% room air, tachypneic. Pt was given 2 nebs at the clinic as well, reports he was wheezingprior to this. A&OX4. E PLACER documented in this encounter Miscellaneous Notes * [...] Flowsheet Documentation Taken 09/13/2024 0854 by Ericka Rodirguez RN Infection Prevention: cohorting utilized hand hygiene promoted rest/sleep promoted Problem: Infection Goal: Absence of Infection Signs and Symptoms Intervention: Prevent or Manage Infection Recent Flowsheet Documentation Taken 09/13/2024 0854 by Ericka Rodriguez RN Isolation Precautions: droplet precautions maintained E PLACER * Plan of Care - Kyle Merchant RN - 09/13/2024 5:12 AM CST For vital signs and complete assessments, please see documentation flowsheets. [id number] Pertinent assessments: Pt A&Ox4. Ind in room. [...] PIV saline locked. Elevated BP, other VSS. E PLACER * Care Plan - Dena Chanel RN - 09/12/2024 6:15 PM CST [facility] ED Boarding Nurse Handoff Addendum Report: Date/time: [...] inform them the note was read: Yes E PLACER E PLACER * Pharmacy-Admission Medication History - Syed Linares, [facility] - 09/12/2024 4:30 PM CST Pharmacist Admission Medication History Admission medication history is complete. The information provided in this note is only as accurateas the sources available at the time of the update. Information Source(s): Patient and CareEverywhere/SureScripts via in-person Pertinent Information: patient reported having about one or two Tamiflu capsules left. Of note, patient was not able to cone picker his new meds (Z-pack, prednisone, and albuterol inhaler) from his pharmacy yet. Changes made to DRAMA TEACHER medication list: Added: Tamiflu Deleted: None Changed: None Allergies reviewed with patient and updates made in EHR: yes Medication History Completed By: Syed Linares RPH 09/12/2024 4:30 PM DRAMA TEACHER Med List Medication Sig Last Dose/Taking oseltamivir (TAMIFLU) 75 MG capsule Take 75 mg by mouth 2 times daily. 09/11/2024 E PLACER documented in this encounter Plan of Treatment Not on file documented as of this encounter Procedures Procedure Name Priority Date/Time Associated Diagnosis Comments MAGNESIUM Routine 09/13/2024 7:37 AM CABLE PLACER BASIC METABOLIC PANEL Routine 09/13/2024 7:37 AM CABLE PLACER CBC WITH PLATELETS Routine 09/13/2024 7: [address] CHEST PULMONARY EMBOLISM W CONTRAST STAT 09/12/2024 4:00 PM CABLE PLACER TROPONIN T, HIGH SENSITIVITY STAT 09/12/2024 3:20 PM CABLE PLACER PROCALCITONIN Add-On 09/12/2024 3:20 PM CABLE PLACER MAGNESIUM Add-On 09/12/2024 3:20 PM CABLE PLACER LACTIC ACID WHOLE BLOOD STAT 09/12/2024 3:20 PM CABLE PLACER BLOOD GAS VENOUS STAT 09/12/2024 3:20 PM CABLE PLACER BLOOD CULTURE STAT 09/12/2024 3:20 PM CABLE PLACER BLOOD CULTURE STAT 09/12/2024 3:20 PM CABLE PLACER EXTRA TUBE STAT 09/12/2024 2:11 PM CABLE PLACER EXTRA RED TOP TUBE STAT 09/12/2024 2: 11 PM CABLE PLACER EXTRA BLUE TOP TUBE STAT 09/12/2024 2 :11 PM CABLE PLACER RBC AND PLATELET MORPHOLOGY STAT 09/12/2024 2:11 PM CABLE PLACER CBC WITH PLATELETS AND DIFFERENTIAL STAT 09/12/2024 2:11 PM CABLE PLACER TROPONIN T, HIGH SENSITIVITY STAT 09/12/2024 2:11 PM CABLE PLACER CBC WITH PLATELETS & DIFFERENTIAL STAT 09/12/2024 2:11 PM CABLE PLACER D DIMER QUANTITATIVE STAT 09/12/2024 2:11 PM CABLE PLACER BASIC METABOLIC PANEL STAT 09/12/2024 2:11 PM CABLE PLACER XR CHEST 2 VIEWS STAT 09/12/2024 1:52 PM CABLE PLACER EKG 12-LEAD, TRACING ONLY STAT 09/12/2024 1:39 PM CABLE PLACER INFLUENZA A/B, RSV AND SARS-COV2 PCR STAT 09/12/2024 1:25 PM CABLE PLACER EKG CARDIAC - HIM SCAN 12:00 AM CABLE PLACER documented in this encounter Results * (ABNORMAL) Magnesium (09/13/2024 7:37 AM CABLE PLACER) [facility] Magnesium 2.7(H) 1.7 - 2.3 mg/dL 09/13/2024 8:14 AM CABLE PLACER LABORATORY Blood STRUCTURE OF LEFT HAND / Unknown Venipuncture / Unknown 09/13/2024 7:37 AM CABLE PLACER 09/13/2024 7:43 AM CABLE PLACER us Sinan Mcghee MD LAB - BLOOD ORDERABLES Final Res ult [facility] Acute Care Lab [address] [facility] Lab (1st floor, no room number) [place] [address], [facility] * (ABNORMAL) CBC with platelets (09/13/2024 7:37 AM CABLE PLACER) [facility] WBC Count 6.2 4.0 - 11.0 10e3/uL 09/13/2024 7:48 AM CABLE PLACER LABORATORY RBC Count 5.26 4.40 - 5.90 10e6/uL 09/13/2024 7:48 AM CABLE PLACER LABORATORY Hemoglobin 13.5 13.3 - 17.7 g/dL 09/13/2024 7:48 AM CABLE PLACER LABORATORY Hematocrit 40.4 40.0 - 53.0 % 09/13/2024 7:48 AM [facility] LABORATORY MCV 77(L) 78 - 100 fL 09/13/2024 7:48 AM CABLE PLACER LABORATORY MCH 25.7(L) 26.5 - 33.0 pg 09/13/2024 7:48 AM [facility] LABOR[facility]ORY MCHC 33.4 31.5 - 36.5 g/dL 09/13/2024 7:48 AM [facility]OR[facility]ORY RDW 13.5 10.0 - 15.0 % 09/13/2024 7:48 AM [facility]ORY Platelet Count 303 150 - 450 10e3/uL 09/13/2024 7:48 AM [facility]ORY Blood STRUCTURE OF LEFT HAND / Unknown Venipuncture / Unknown 09/13/2024 7:37 AM CABLE PLACER 09/13/2024 7:43 AM CABLE PLACER us Sinan Mcghee MD LAB - BLOOD ORDERABLES Final Res ult LABORATORY [facility] Acute Care Lab [address] [facility] Lab (1st floor, no room number) [place] [address], [facility] * (ABNORMAL) Basic metabolic panel (09/13/2024 7:37 AM CABLE PLACER) [facility] Sodium 135 135 - 145 mmol/L 09/13/2024 8:14 AM [facility] LAB[facility]ORY Potassium 3.8 3.4 - 5.3 mmol/L 09/13/2024 8:14 AM [facility]ORY Chloride 97(L) 98 - 107 mmol/L 09/13/2024 8:14 AM [facility]ORY Carbon Dioxide (CO2) 23 22 - 29 mmol/L 09/13/2024 8:14 AM [facility] Anion Gap 15 7 - 15 mmol/L 09/13/2024 8:14 AM CABLE PLACER LABORATORY Urea Nitrogen 15.2 6.0 - 20.0 mg/dL 09/13/2024 8:14 AM CABLE PLACER LABORATORY Creatinine 0.75 0.67 - 1.17 mg/dL 09/13/2024 8:14 AM CABLE PLACER LABORATORY GFR Estimate >90 >60 mL/min/1.7 3m2 09/13/2024 8:14 AM CABLE PLACER LABORATORY Comment:eGFR calculated usin 2020 CKD-EPI equation. Calcium 8.7(L) 8.8 - 10.4 mg/dL 09/13/2024 8:14 AM CABLE PLACER LABORATORY Glucose 129(H) 70 - 99 mg/dL 09/13/2024 8:14 AM CABLE PLACER LABORATORY Blood STRUCTURE OF LEFT HAND / Unknown Venipuncture / Unknown 09/13/2024 7:37 AM CABLE PLACER 09/13/2024 7:43 AM CABLE PLACER Sinan Mcghee MD LAB - BLOOD ORDERABLES Final Res ult [facility] Acute Care Lab [address] Lab (1st floor, no room number) [place] [address], [facility] * CT Chest Pulmonary Embolism w Contrast (09/12/2024 4:00 PM CABLE PLACER) Anatomical Region Laterality Modality Chest, SUBRAD CT BODY, UMP CT CHEST Computed Tomography 09/12/2024 4:00 PM CABLE PLACER Impressions 09/12/2024 4:11 PM CABLE PLACER IMPRESSION: 1. Multifocal pneumonia. 2. No pulmonary embolus. Narrative 09/12/2024 4:11 PM CABLE PLACER EXAM: CT CHEST PULMONARY EMBOLISM W CONTRAST LOCATION: [facility] DATE: 09/12/2024 INDICATION: shortness of breath [...] CT CHEST PULMONARY EMBOLISM W CONTRAST LOCATION: [facility] DATE: 09/12/2024 INDICATION: shortness of breath [...] 2. No pulmonary embolus. Smita Calderon MD [facility] [place] ORDERABLE S Final Result * (ABNORMAL) Magnesium (09/12/2024 3:20 PM CABLE PLACER) Magnesium 3.2(H) 1.7 - 2.3 mg/dL 09/12/2024 7:09 PM CABLE PLACER RH LABORATORY Blood BLOOD SPECIMEN / Unknown Venipuncture / Unknown 09/12/2024 3:20 PM CABLE PLACER 09/12/2024 3:39 PM CABLE PLACER Sinan Mcghee MD LAB - BLOOD ORDERABLES Final Res ult Performing Organization Address City/[facility]/ZIP Co de Phone Number [facility] Lab [address] Lab (1st floor, no room number) [place] [address] * (ABNORMAL) Procalcitonin (09/12/2024 3:20 PM CABLE PLACER) Procalcitonin 1.22(H) <0.50 ng/mL 09/12/2024 4:37 PM CABLE PLACER LABORATORY Comment: Interpretation and Recommendations <0.5 ng/mL: Systemic bacterial infection unlikely. Local bacterial infection is possible. 0.5-1.99 ng/mL: Systemic bacterial infection possible, but various other conditions are known to induce PCT as well. >=2.00 ng/mL: Systemic bacterial infection likely, unless other causes are known. Decision to start antibiotics should not be based on procalcitonin level alone. See Procalcitonin Guidance document for more details. [email or web address] ibiot [email or web address] Factors that may affect PCT levels (not [...] Unknown Venipuncture / Unknown 09/12/2024 3:20 PM CABLE PLACER 09/12/2024 3:39 PM CABLE PLACER Sinan Mcghee MD LAB - BLOOD ORDERABLES Final Res ult Performing Organization Address [facility]/ZIP Co de Phone Number [facility] Care Lab [address] Lab (1st floor, no room number) [place] [address] * Blood Culture Peripheral Blood (09/12/2024 3:20 PM CABLE PLACER) Culture No Growth 09/17/2024 6:16 PM CABLE PLACER [facility] LABORATORY Blood BLOOD SPECIMEN / Unknown Venipuncture / Unknown 09/12/2024 3:20 PM CABLE PLACER 09/12/2024 3:39 PM CABLE PLACER us Smita Calderon MD LAB - MICRO GENE RAL ORDERABLES Final Result [facility] LABORATORY [facility] Inf. Diseases Diag. Lab [address] [facility], Room [address] [phone] * Blood Culture Peripheral Blood (09/12/2024 3:20 PM CABLE PLACER) Culture No Growth 09/17/2024 6:16 PM CABLE PLACER [facility] Blood BLOOD SPECIMEN / Unknown Venipuncture / Unknown 09/12/2024 3:20 PM CABLE PLACER 09/12/2024 3:39 PM CABLE PLACER us Smita Calderon MD LAB - MICRO GENE RAL ORDERABLES Final Result [facility]ORAT[facility] Inf. Diseases Diag. Lab [address] [facility], Room [address] [phone] * (ABNORMAL) Blood gas venous (09/12/2024 3:20 PM CABLE PLACER) pH Venous 7.44(H) 7.32 - 7.43 09/12/2024 3:44 PM CABLE PLACER RH LABORATORY pCO2 Venous 45 40 - 50 mm Hg 09/12/2024 3:44 PM CABLE PLACER RH LABORATORY pO2 Venous 17(L) 25 - 47 mm Hg 09/12/2024 3:44 PM CABLE PLACER RH LABORATORY Bicarbonate Venous 31(H) 21 - 28 mmol/L 09/12/2024 3:44 PM CABLE PLACER RH LABORATORY Base Excess/Deficit Venous 5.3(H) -3.0 - 3.0 mmol/L 09/12/2024 3:44 PM CABLE PLACER RH LABORATORY FIO2 2 ARUN 09/12/2024 3:44 PM CABLE PLACER RH LABORATORY Comment:2 liters NC Oxyhemoglobin Venous 24(L) 70 - 75 % 09/12/2024 3:44 PM CABLE PLACER RH LABORATORY O2 Sat, Venous 24.6(L) 70.0 - 75.0 % 09/12/2024 3:44 PM CABLE PLACER RH LABORATORY Blood, venous BLOOD SPECIMEN / Unknown Venipuncture / Unknown 09/12/2024 3:20 PM CABLE PLACER 09/12/2024 3:39 PM CABLE PLACER Narrative RH LABORATORY - 09/12/2024 3:44 PM CABLE PLACER In healthy individuals, oxyhemoglobin (O2Hb) and oxygen saturation (SO2) are approximately equal. In the presence of dyshemoglobins, oxyhemoglobin can be considerably lower than oxygen saturation. Smita Calderon MD LAB - BLOOD IRENA LOPEZ Final Result Performing Organization Address City/[facility]/ZIP Co de Phone Number [facility] Lab [address] Lab (1st floor, no room number) [address] * Lactic acid whole blood (09/12/2024 3:20 PM CABLE PLACER) [facility] Lactic Acid 1.6 0.7 - 2.0 mmol/L 09/12/2024 3:44 PM CABLE PLACER RH LABORATORY Blood, venous BLOOD SPECIMEN / Unknown Venipuncture / Unknown 09/12/2024 3:20 PM CABLE PLACER 09/12/2024 3:39 PM CABLE PLACER Smita Calderon MD LAB - BLOOD ORDE RABSUZANNE Final Result [facility] Lab [address] Lab (1st floor, no room number) [address] * Troponin T, High Sensitivity (09/12/2024 3:20 PM CABLE PLACER) Troponin T, High Sensitivity 9 <=22 ng/L 09/12/2024 4:00 PM CABLE PLACER LABORATORY Comment: Either a High Sensitivity Troponin [...] Unknown Venipuncture / Unknown 09/12/2024 3:20 PM CABLE PLACER 09/12/2024 3:39 PM CABLE PLACER Smita Calderon MD LAB - BLOOD ORDE JESSICA Final Result Performing Organization Address City/[facility]/ZIP Co de Phone Number [facility] Care Lab [address] [employer] Lab (1st floor, no room number) [place] [phone], [facility] * RBC and Platelet Morphology (09/12/2024 2:11 PM CABLE PLACER) Pathologist [facility] RBC Morphology Confirmed RBC Indices 09/12/2024 3:22 PM CABLE PLACER LABORATORY Platelet Assessment Automated Count Confirmed. Platelet morphology is normal. Automated Count Confirmed. Platelet morphology is normal. [facility] 09/12/2024 3:22 PM CABLE PLACER LABORATORY Blood BLOOD SPECIMEN / Unknown Venipuncture / Unknown 09/12/2024 2:11 PM CABLE PLACER 09/12/2024 2:15 PM CABLE PLACER us Smita Calderon MD LAB - BLOOD ORDE RABSUZANNE Final Result [facility] Lab [address] Lab (1st floor, no room number) [place] [address], [facility] * (ABNORMAL) CBC with platelets and differential (09/12/2024 2:11 PM CABLE PLACER) [facility] Signature WBC Count 6.7 4.0 - 11.0 10e3/uL 09/12/2024 3:22 PM CABLE PLACER RH LABORATORY RBC Count 5.61 4.40 - 5.90 10e6/uL 09/12/2024 3:22 PM CABLE PLACER RH LABORATORY Hemoglobin 14.5 13.3 - 17.7 g/dL 09/12/2024 3:22 PM CABLE PLACER RH LABORATORY Hematocrit 43.1 40.0 - 53.0 % 09/12/2024 3:22 PM CABLE PLACER RH LABORATORY MCV 77(L) 78 - 100 fL 09/12/2024 3:22 PM CABLE PLACER RH LABORATORY MCH 25.8(L) 26.5 - 33.0 pg 09/12/2024 3:22 PM CABLE PLACER RH LABORATORY MCHC 33.6 31.5 - 36.5 g/dL 09/12/2024 3:22 PM CABLE PLACER RH LABORATORY RDW 13.6 10.0 - 15.0 % 09/12/2024 3:22 PM CABLE PLACER RH LABORATORY Platelet Count 256 150 - 450 10e3/uL 09/12/2024 3:22 PM CABLE PLACER RH LABORATORY % Neutrophils 79 % 09/12/2024 3:22 PM CABLE PLACER RH LABORATORY % Lymphocytes 9 % 09/12/2024 3:22 PM CABLE PLACER RH LABORATORY % Monocytes 10 % 09/12/2024 3:22 PM CABLE PLACER RH LABORATORY % Eosinophils 0 % 09/12/2024 3:22 PM CABLE PLACER RH LABORATORY % Basophils 0 % 09/12/2024 3:22 PM CABLE PLACER RH LABORATORY % Immature Granulocytes 2 % 09/12/2024 3:22 PM CABLE PLACER RH LABORATORY NRBCs per 100 WBC 0 <1 /100 025 3:22 PM CABLE PLACER RH LABORATORY Absolute Neutrophils 5.3 1.6 - 8.3 10e3/uL 09/12/2024 3:22 PM CABLE PLACER RH LABORATORY Absolute Lymphocytes 0.6(L) 0.8 - 5.3 10e3/uL 09/12/2024 3:22 PM CABLE PLACER RH LABORATORY Absolute Monocytes 0.7 0.0 - 1.3 10e3/uL 09/12/2024 3:22 PM CABLE PLACER RH LABORATORY Absolute Eosinophils 0.0 0.0 - 0.7 10e3/uL 09/12/2024 3:22 PM CABLE PLACER RH LABORATORY Absolute Basophils 0.0 0.0 - 0.2 10e3/uL 09/12/2024 3:22 PM CABLE PLACER RH LABORATORY Absolute Immature Granulocytes 0.1 <=0.4 10e3/uL 09/12/2024 3:22 PM CABLE PLACER RH LABORATORY Absolute NRBCs 0.0 10e3/uL 09/12/2024 3:22 PM CABLE PLACER RH LABORATORY Blood BLOOD SPECIMEN / Unknown Venipuncture / Unknown 09/12/2024 2:11 PM CABLE PLACER 09/12/2024 2:15 PM CABLE PLACER us Smita Calderon MD LAB - BLOOD ORDE JESSICA Final Result [facility] Lab [address] Lab (1st floor, no room number) [address] * Extra Red Top Tube (09/12/2024 2:11 PM CABLE PLACER) Hold Specimen [facility] 09/12/2024 3:16 PM CABLE PLACER RH LABORATORY Blood BLOOD SPECIMEN / Unknown Venipuncture / Unknown 09/12/2024 2:11 PM CABLE PLACER 09/12/2024 2:15 PM CABLE PLACER us Smita Calderon MD LAB - BLOOD ORDE JESSICA Final Result [facility] Lab [address] Lab (1st floor, no room number) [address] * Extra Blue Top Tube (09/12/2024 2:11 PM CABLE PLACER) Hold Specimen [facility] 09/12/2024 3:16 PM CABLE PLACER RH LABORATORY Blood BLOOD SPECIMEN / Unknown Venipuncture / Unknown 09/12/2024 2:11 PM CABLE PLACER 09/12/2024 2:15 PM CABLE PLACER us Smita Calderon MD LAB - BLOOD ORDE JESSICA Final Result LABORATORY [facility] Acute Care Lab [address] [employer] Lab (1st floor, no room number) [place] [address] * (ABNORMAL) D dimer quantitative (09/12/2024 2:11 PM CABLE PLACER) Pathologist [facility] D-Dimer Quantitative 0.75(H) 0.00 - 0.50 ug/mL FEU 09/12/2024 2:29 PM CABLE PLACER LABORATORY Blood BLOOD SPECIMEN / Unknown Venipuncture / Unknown 09/12/2024 2:11 PM CABLE PLACER 09/12/2024 2:15 PM CABLE PLACER Narrative LABORATORY - 09/12/2024 2:29 PM CABLE PLACER This D-dimer assay is intended for use in conjunction with a clinical pretest probability assessment model to exclude pulmonary embolism (PE) and deep venous thrombosis (DVT) in outpatients suspected of PE or DVT. The cut-off value is 0.50 ug/mL FEU. Smita Calderon MD LAB - BLOOD ORDE RIDGESUZANNE Final Result Performing Organization Address [facility]/ZIP Co de Phone Number [facility] Acute Care Lab [address] Lab (1st floor, no room number) [place] [phone] * Troponin T, High Sensitivity (09/12/2024 2:11 PM CABLE PLACER) [facility] Troponin T, High Sensitivity 8 <=22 ng/L 09/12/2024 2:42 PM CABLE PLACER LABORATORY Comment: Either a High Sensitivity Troponin [...] Unknown Venipuncture / Unknown 09/12/2024 2:11 PM CABLE PLACER 09/12/2024 2:15 PM CABLE PLACER Smita Calderon MD LAB - BLOOD ORDE JESSICA Final Result LABORATORY [facility] Acute Care Lab [address] Lab (1st floor, no room number) [place] [address], [facility] * (ABNORMAL) Basic metabolic panel (09/12/2024 2:11 PM CABLE PLACER) [facility] Sodium 135 135 - 145 mmol/L 09/12/2024 2:42 PM [facility] LABORATORY Potassium 4.0 3.4 - 5.3 mmol/L 09/12/2024 2:42 PM [facility]ORY Chloride 94(L) 98 - 107 mmol/L 09/12/2024 2:42 PM [facility]ORY Carbon Dioxide (CO2) 27 22 - 29 mmol/L 09/12/2024 2:42 PM [facility] Anion Gap 14 7 - 15 mmol/L 09/12/2024 2:42 PM [facility] Urea Nitrogen 15.1 6.0 - 20.0 mg/dL 09/12/2024 2:42 PM [facility] Creatinine 0.95 0.67 - 1.17 mg/dL 09/12/2024 2:42 PM [facility] GFR Estimate >90 >60 mL/min/1.7 3m2 09/12/2024 2:42 PM [facility] Comment:eGFR calculated usin g 2020 CKD-EPI equation. Calcium 8.8 8.8 - 10.4 mg/dL 09/12/2024 2:42 PM [facility] Glucose 122(H) 70 - 99 mg/dL 09/12/2024 2:42 PM [facility] Blood BLOOD SPECIMEN / Unknown Venipuncture / Unknown 09/12/2024 2:11 PM [facility] 09/12/2024 2:15 PM [facility] Smita Calderon MD LAB - BLOOD IRENA LOPEZ Final Result [facility] [address] [address] [facility] (1st floor, no room number) [place] [address] * XR Chest 2 Views (09/12/2024 1:52 PM CABLE PLACER) Anatomical Region Laterality Modality Chest Computed Radiogr aphy 09/12/2024 1:52 PM CABLE PLACER Impressions 09/12/2024 1:55 PM CABLE PLACER IMPRESSION: Patchy infiltrates in the mid and lower lungs bilaterally typical of bilateral pneumonia. Narrative 09/12/2024 1:55 PM CABLE PLACER EXAM: XR CHEST 2 VIEWS LOCATION: [facility] DATE: 09/12/2024 INDICATION: shortness of breath, tachypneic COMPARISON: None. Procedure Note Ed Joseph MD - 09/12/2024 EXAM: XR CHEST 2 VIEWS LOCATION: [facility] DATE: 09/12/2024 INDICATION: shortness of breath, tachypneic COMPARISON: None. IMPRESSION: Patchy infiltrates in the mid and lower lungs bilaterallytypical of bilateral pneumonia. Smita Calderon MD IMG DIAGNOSTIC I MAGING ORDERABLES Final Result * EKG 12-lead, tracing only (09/12/2024 1:39 PM CABLE PLACER) Systolic Blood Pressure mmHg RADIOLOGY RESULTS Diastolic Blood Pressure mmHg RADIOLOGY RESULTS Ventricular Rate 88 BPM RAD IOLOGY RESULTS Atrial Rate 88 BPM RADIOLOG Y RESULTS ID Interval 144 ms RADIOLOG Y RESULTS QRS Duration 92 ms RADIOLO GY RESULTS QT 358 ms RADIOLOGY RESULTS QTc 433 ms RADIOLOGY RESULTS P Dalton 10 degrees RADIOLOGY RESULTS R AXIS 31 degrees RADIOLOGY RESULTS T Dalton 19 degrees RADIOLOGY RESULTS Interpretation ECG Sinus rhythm Normal ECG No previous ECGs available Confirmed by - EMERGENCY ROOM, PHYSICIAN ([id number]), features editor FIDEL MANDUJANO ([id number]) on 09/12/2024 1:42:55 PM RADIOLOGY RESULTS 09/12/2024 1:39 PM CABLE PLACER 09/12/2024 1:42 PM CABLE PLACER Smita Calderon MD ECG ORDERABLES Edited Result - Final RADIOLOGY RESULTS * (ABNORMAL) Influenza A/B, RSV and SARS-CoV2 PCR (COVID-19) Nasopharyngeal (09/12/2024 1:25 PM CABLE PLACER) Influenza A PCR Positive(A) Negative 09/12/2024 2:23 PM CABLE PLACER [facility] Influenza B PCR Negative Negative 09/12/2024 2:23 PM CABLE PLACER [facility] RSV PCR Negative Negative 09/12/2024 2:23 PM CABLE PLACER [facility] SARS CoV2 PCR Negative Negative 09/12/2024 2:23 PM CABLE PLACER [facility] Comment:NEGATIVE: SARS-CoV-2 (COVID-19) RNA not detected, presumed negative. Swab NASOPHARYNGEAL STRUCTURE / Unknown Non-blood Collection / Unknown 09/12/2024 1:25 PM CABLE PLACER 09/12/2024 1:29 PM CABLE PLACER Narrative [facility] - 09/12/2024 2:23 PM CABLE PLACER Testing was performed using the Xpert Xpress CoV2/Flu/RSV Assay on the [employer] GeneXpert Instrument. This test should be ordered [...] management. This test was validated by the [facility]. These laboratories are certified under the Clinical Laboratory Improvement Amendments of 1988 (CLIA-88) as qualified to perfom high complexity laboratory testing. us Smita Calderon MD LAB - MICRO GENE RAL ORDERABLES Final Result LABORATORY [facility] [address] [facility] (1st floor, no room number) [place] [address], [facility] * EKG Cardiac - HIM Scan (09/12/2024 12:00 AM CABLE PLACER) 09/12/2024 us Provider Outside ECG ORDERABLES Final [...] PneumoniaIndications:Community Acquired Pneumonia $Given 09/12/2024 3:37 PM CABLE PLACER 500 mg cefTRIAXone (ROCEPHIN) 2 g vial to attach to NS 100 ml bag for ADULTS or NS 50 ml bag for PEDS STAT, 2 g, Intravenous, ONCE, On Thu09/12/24 at 1515, For 1 dose, Lactated Ringer's solution is not compatible with ceftriaxone for injection, Indications: Community Acquired PneumoniaIndications:Community Acquired Pneumonia $New Bag 09/12/2024 3:37 PM CABLE PLACER [address] scan flush Intravenous, 100 mL, ONCE, On Thu09/12/24 at 1550, For 1 dose, This entry is for use by Radiology to intermittently used as a flush in patients receiving a CT scan. $Given 09/12/2024 3:48 PM CABLE PLACER 100 mLs guaiFENesin (MUCINEX) 12 hr tablet 600 mg 600 mg, Oral, 2 TIMES DAILY, First dose on Thu09/12/24 at 2000, DO NOT CRUSH. $Given 09/13/2024 8:50 AM CABLE PLACER 600 mg $Given 09/12/2024 8:03 PM CABLE PLACER 600 mg iopamidol (ISOVUE-370) solution 500 mL 500 mL, Intravenous, ONCE, On Thu09/12/24 at 1550, For 1 dose $Given 09/12/2024 3:48 PM CABLE PLACER 88 mLs ipratropium - albuterol 0.5 mg/2.5 mg/3 mL (DUONEB) neb solution 3 mL 3 mL, Nebulization, ONCE, On Thu09/12/24 at 1405, For 1 dose $Given 09/12/2024 4:24 PM CABLE PLACER 3 mLs magnesium sulfate 2 g in 50 mL sterile water intermittent infusion 2 g, Intravenous, Administer over 60 Minutes, at 50 mL/hr, ONCE, On Thu09/12/24 at 1405, For 1 dose $New Bag 09/12/2024 2:16 PM CABLE PLACER 2 g 50 m L/hr methylPREDNISolone Na Suc (solu-MEDROL) injection 125 mg 125 mg, Intravenous, ONCE, On Thu09/12/24 at 1405, For 1 dose $Given 09/12/2024 2:16 PM CABLE PLACER 125 mg ondansetron (ZOFRAN ODT) ODT tab [...] dose, Indications: InfluenzaIndications:Influenza $Given 09/12/2024 2:16 PM CABLE PLACER 75 mg oseltamivir (TAMIFLU) capsule 75 mg Routine, 75 mg, Oral, 2 TIMES DAILY, First dose on Thu09/13/24 at 0800, Indications: InfluenzaIndications:Influenza $Given 09/13/2024 8:50 AM CABLE PLACER 75 mg senna-docusate (SENOKOT-S/PERICOLACE) 8.6-50 MG per [...] IV dormant line $Given 09/13/2024 8:51 AM CABLE PLACER 3 mLs $Given 09/13/2024 12:55 AM CABLE PLACER 3 mLs $Given 09/12/2024 6:07 PM CABLE PLACER 3 mLs documented in this encounter Active and Recently Administered Medications Times are shown in CABLE PLACER. Scheduled Medication Order 09/11/2024 09/12/2024 09/13/2024 azithromycin [...] Out COVID-19 09/12/2024 09/12/2024 09/12/2024 2:23 PM CABLE PLACER Influenza 09/12/2024 09/12/2024 09/19/2024 11:4 1 PM CABLE PLACER documented as of this encounter Care Teams Cmo & President Relationship Specialty Start Date End Date No Ref-Primary, Physician PCP - General 02/05/24 documented as of this encounter
[2024-10-11 15:25] LABS: Basophils Percent Auto 0.3 % (0.0-3.0); Eosinophils Percent Auto 0.8 % (0.0-7.0); Hematocrit 41.4 % (37.0-53.0); Hemoglobin* 13.3 gm/dL (13.5-17.5); Immature Granulocytes Pct Auto 0.6 %; Lymphocytes Percent Auto 8.2 % (20-44); Mean Corpuscular HGB Conc 32 gm/dL (32-36); Mean Corpuscular Hemoglobin 26 pg (26-34); Mean Corpuscular Volume 80 fL (80-100); Monocytes Percent Auto 8.3 % (0.0-11.0); Neutrophils Percent Auto 81.8 % (42.0-72.0); Platelet Count* 297 K/uL (140-440); RDW Coefficient of Variation % 14.2 % (11.5-15.5); Red Blood Count 5.17 m/uL (4.30-5.90); Slide Review Reflex No; White Blood Count* 12.33 K/uL (4.50-11.00)
[2024-10-11 15:28] LABS: Albumin* 4.2 g/dL (3.3-5.0); Chloride* 101 mmol/L (96-114)
[2024-10-11 15:29] LABS: Potassium* 4.3 mmol/L (3.6-5.1); Sodium* 137 mmol/L (135-149)
[2024-10-11 15:31] LABS: Alkaline Phosphatase* 79 U/L (40-150); Anion Gap 9 mEq/L (7-15); Aspartate Amino Transferase* 81 U/L (12-35); Bilirubin Direct* 0.7 mg/dL (0.0-0.5); Blood Urea Nitrogen* 19 mg/dL (5-24); Carbon Dioxide* 27 mmol/L (20-32); Creatinine* 1.1 mg/dL (0.5-1.5); Estimated Glomerular Filt Rate 89 ml/min; Total Protein* 7.1 g/dL (6.0-8.3)
[2024-10-11 15:32] LABS: Alanine Aminotransferase* 47 U/L (4-50); Calcium* 8.7 mg/dL (8.4-10.6); Glucose* 94 mg/dL (60-115); Lipase* 39 U/L (23-300)
[2024-10-11 15:34] LABS: C Reactive Protein* 0.6 mg/dL (0.5-1.0)
[2024-10-11 15:51] LABS: Troponin I* < 0.01 ng/mL (0.01-0.04)
[2024-10-11 15:52] LABS: D Dimer Quantitative* < 0.27 ug/ml (0.00-0.50)
== END 2024-10-11 17:04 | disposition home or self-care (01) ==
PROVIDERS: Emergency Provider Family Medicine
DX: R10.13 Epigastric pain (principal); K82.8 Other specified diseases of gallbladder
CPT/HCPCS: 36415; 76705; 80048; 80076; 83690; 84484; 85025; 85379; 86140; 93005; 99284; 99285

== ENCOUNTER 2024-10-14 08:50 | Emergency (ER) | payer OTHER, SELFPAY ==
[2024-10-14] VITALS (17 sets, daily range): BP systolic 164–185; BP diastolic 98–138; PULSE 85–106; RESP 16–18; TEMP 37.1; O2SAT 96–100; BMI 35.1
--- OUTSIDE RECORDS SUMMARY | 2024-10-14 08:53 | XMS_ITS | Clinical Summary ---
Author Organization [facility] Address [address] [place] [id number] Care Team Providers Care Train Engineer Name Role Phone Pcp, No Primary Care [...] age to complete this topic Insurance OWCP [id number] [place] [id number] Care Teams Train Engineer Relationship Specialty Start Date End Date Pcp, No . PCP - General 02/12/24
--- NOTE | 2024-10-14 09:33 | ED.GENADULT ---
HPI - General Adult General Chief complaint: Abdominal Pain Stated complaint: Upper abdominal pain Time Seen by Provider: 10/14/24 09:33 History of Present Illness HPI narrative: Patient reports severe pain since last night. Was seen in ED a few days ago and started on Omeprazole and says he had sludge in the gall bladder. One episode of emesis last night. 39-year-old man returning to the emergency department with concern of upper abdominal pain. Describes it sharp and tight. Gestures to the epigastrium. Seen by myself in the emergency department 3 days ago with similar pain complaint. He says it has been persistent now over the last 16 hours or so. Not quite as bad as it was before but still intense. Beginning yesterday afternoon. Some nausea. No radiation of this pain. No fever noted. When evaluated in the emergency department last was noted to have sludge in gallbladder mildly elevated AST and direct bili. He does not feel that he needs anything for pain or nausea right now though Related Data Previous Rx's ?Medication ?Instructions ?Recorded mupirocin 2 % topical ointment 1 applic topical TID #22 grams 11/25/23 cephalexin 500 mg capsule 500 mg PO TID #21 caps 11/27/23 omeprazole 40 mg capsule,delayed 40 mg PO DAILY #15 caps 10/11/24 release Allergies Allergy/AdvReac Type Severity Reaction Status Date / Time No Known Drug Allergies Allergy Verified 11/25/23 10:18 Review of Systems Status of ROS: Reports: 6 or more systems reviewed and unremarkable except as noted in History and below [facility] Social History Smoking Status: Unknown if ever smoked Non-prescribed substance use: former substance user Exam Narrative: Exam Narrative: Tall. Large man. Seems a little uncomfortable. Without scleral icterus. Blood pressure noted to be elevated again. Skin is warm and dry. Is well-perfused peripherally. Heart in elevated rate but regular rhythm. Lungs are clear. Abdomen is soft with tenderness in the epigastrium but not directly in the right upper quadrant. Const: Vital Signs, click to edit/add: Vital Signs - 24 hr 10/14/24 09:22 10/14/24 11:20 10/14/24 12:46 Temperature 98.8 F Pulse Rate 94 Pulse Rate [Pulse Oximeter] 94 85 Respiratory Rate 18 16 Blood Pressure Blood Pressure [Ri ght Upper Arm] 185/102 H 173/126 H Pulse Oximetry 96 98 98 Oxygen Delivery Me thod Room Air Room Air 10/14/24 12:47 10/14/24 13:00 10/14/24 13:03 Temperature Pulse Rate 85 92 90 Pulse Rate [Pulse Oximeter] Respiratory Rate 18 Blood Pressure 167/112 H 172/114 H Blood Pressure [Ri ght Upper Arm] Pulse Oximetry 98 98 98 Oxygen Delivery Me thod 10/14/24 13:15 10/14/24 13:30 Temperature Pulse Rate 96 98 Pulse Rate [Pulse Oximeter] Respiratory Rate Blood Pressure Blood Pressure [Ri ght Upper Arm] Pulse Oximetry 98 98 Oxygen Delivery Me thod Documenting provider has reviewed patient's vital signs: yes Course Vital Signs Vital signs: Initial Vital Signs Temperature 98.8 F 10/14/24 09:22 Temperature Source Temporal Artery Scan 10/14/24 09:22 Pulse Rate 94 10/14/24 09:22 Respiratory Rate 18 10/14/24 09:22 Blood Pressure 185/102 H 10/14/24 09:22 Blood Pressure Mean 129 H 10/14/24 09:22 Pulse Oximetry 96 10/14/24 09:22 Oxygen Delivery Method Room Air 10/14/24 09:22 Vital Signs Temperature 98.8 F 10/14/24 09:22 Pulse Rate 94 10/14/24 09:22 Respiratory Rate 18 10/14/24 09:22 Blood Pressure 185/102 H 10/14/24 09:22 Pulse Oximetry 96 10/14/24 09:22 Oxygen Delivery Method Room Air 10/14/24 09:22 Temperature 98.8 F 10/14/24 09:22 Pulse Rate 98 10/14/24 13:30 Respiratory Rate 18 10/14/24 13:03 Blood Pressure 172/114 H 10/14/24 13:03 Pulse Oximetry 98 10/14/24 13:30 Oxygen Delivery Method Room Air 10/14/24 11:20 Medications Administered Medications: Discontinued Medications Generic Name Dose Route Start Last Admin Trade Name Freq PRN Reason Stop Dose Admin Piperacillin Sod/Tazobactam 100 mls @ 200 mls/hr 10/14/24 11:21 10/14/24 12:26 Sod 4.5 gm/ Sodium Chloride IVPB 10/14/24 11:22 Infused ONCE ONE Infusion Sodium Chloride 500 mls @ 500 mls/hr 10/14/24 11:37 10/14/24 13:09 0.9 % Sodium Chloride 500 Ml IV 10/14/24 12:36 Infused .Q1H ONE Infusion Sodium Chloride 1,000 mls @ 1,000 mls/hr 10/14/24 12:11 10/14/24 14:16 0.9 % Sodium Chloride 1000 Ml IV 10/14/24 13:10 Infused .Q1H ONE Infusion Medical Decision Making MDM Narrative Medical decision making narrative: I still think this is likely biliary colic/related pain but will assess for other etiology again including ischemic cardiovascular event. Is not reporting vomiting but some gastritis or heartburn still in differential as well. I did speak with production pattern maker noting slight increase in size of common bile duct. Still with sludge. No inflammatory changes were noted Radiology over-read of limited upper abdominal ultrasound as below INDICATION: Epigastric pain. History of biliary sludge. TECHNIQUE: Ultrasound abdomen limited to evaluation of the gallbladder and common bile duct. COMPARISON: 10/11/2024. FINDINGS: Gallbladder: Lobular heterogeneous sludge is similar in appearance. No shadowing stones, wall thickening or pericholecystic fluid. Common bile duct: 7-8 mm. No free fluid evident. IMPRESSION: 1. Gallbladder sludge, as before. 2. Borderline/mild biliary ductal dilatation, without definite cause. Dictated by Wojciech Blakely MD @ 10/14/2024 10:44:48 AM Labs return with markedly elevated transaminases, elevated primarily direct bilirubin. Normal white count. Rather elevated lipase as well. Rather elevated D-dimer which I suspect is related to inflammatory changes. With these labs I would suspect choledocholithiasis. Initiating dose of Zosyn. Normal saline. Did speak to General surgery confirming need for care elsewhere for ERCP. Pending bed availability will CT image abdomen as well. I did review these images. Radiology over-read below INDICATION: Pancreatitis, hepatitis, suspect common bile duct stone. COMPARISON: Ultrasound 10/14/2024 and 10/11/2024 TECHNIQUE: CT of the abdomen and pelvis with intravenous contrast. Multiplanar axial, coronal, and sagittal reformats were reconstructed. Contrast: 134 mL Isovue 370. FINDINGS: Lung bases: Bibasilar atelectasis and respiratory motion. Liver: Homogeneous normal liver. Gallbladder and bile ducts: The gallbladder is distended. There is circumferential pericholecystic edema. The gallbladder wall is thick. There is moderate intrahepatic biliary ductal dilatation that extends to the periphery of the liver. The common hepatic duct measures 1.1 cm. The common bile duct measures 7 millimeters. There is tapering down towards the pancreaticobiliary junction without a discrete calcified stone seen. Pancreatico biliary junction anatomy appears to be within normal limits. The pancreatic duct is at the upper limits of normal in size and the pancreatic head and normal distally. There is some mild biliary wall thickening and enhancement with some adjacent inflammatory stranding. No mass seen at the ampulla. Pancreas: Homogeneous normal enhancement of the pancreatic parenchyma. No significant pancreatic or peripancreatic edema or fluid. No cyst or mass. Pancreatic duct in the pancreatic head is at the upper limits of normal in size. Spleen: Normal spleen and small splenule. Adrenal glands: Normal. Kidneys: Normal parenchyma. No cyst or solid mass. No calculi. No urinary tract dilation. Urinary bladder: Normal. Pelvis: No cyst or mass. Vessels: No mesenteric or portal thrombus. Vascular structures are normal. Bowel: No dilated or inflamed bowel. Normal appendix. Moderate stool burden. Lymph nodes: Mildly prominent reactive appearing periportal lymph node. Peritoneum: No ascites. Abdominal wall: No hernia. Bones: No fractures. No focal worrisome bone lesions. IMPRESSION: 1. Cholecystitis. 2. Biliary ductal dilatation. Mild cholangitis. No calcified choledocholithiasis. Many gallstones are not visible on CT. 3. No CT findings of pancreatitis or hepatitis. Please note that all CT scans at this facility use dose modulation, iterative reconstruction, and/or weight-based dosing when appropriate to reduce radiation dose to as low as reasonably achievable. Dictated by Homa Carroll MD @ 10/14/2024 1:00:46 PM Discussed all findings with Mr. Munguia. Has not needed interventions for pain. Is receiving antibiotics and IV fluid Has been accepted with a wait to [facility]. Stable vitals and no escalation in pain. He is he intends to drive by private car; notes that his dad will drive him to [facility]. He will not accept ambulance transport. I discussed my concerns of his illness and potentially abrupt change in status. Medical Records Medical records reviewed: Yes I reviewed the patient's medical records Lab Data Lab results reviewed: Yes I reviewed the patient's lab results Labs: Lab Results 10/14/24 Range/Units 10:16 WBC 6.55 (4.50-11.00) K/uL RBC 5.46 (4.30-5.90) m/uL Hgb 14.1 (13.5-17.5) gm/dL Hct 43.8 (37.0-53.0) % MCV 80 (80-100) fL MCH 26 (26-34) pg MCHC 32 (32-36) gm/dL RDW Coeff of Spencer 14.8 (11.5-15.5) % Plt Count 282 (140-440) K/uL Neut % (Auto) 65.5 (42.0-72.0) % Lymph % (Auto) 15.0 L (20-44) % [place] % (Auto) 11.8 H (0.0-11.0) % Eos % (Auto) 6.4 (0.0-7.0) % Baso % (Auto) 0.8 (0.0-3.0) % Neut # (Auto) 4.30 (1.7-7.0) K/uL Lymph # (Auto) 1.00 (0.90-2.90) K/uL [place] # (Auto) 0.80 (0.00-0.90) K/UL Eos # (Auto) 0.42 (0.00-0.50) K/uL Baso # (Auto) 0.05 (0.00-0.30) K/uL Abs Immat Gran (auto) 0.03 (0.00-0.30) K/uL Imm/Tot Granulo (auto) 0.5 % D-Dimer Quant (PE/DVT) 2.63 H (0.00-0.50) ug/ml Sodium 137 (135-149) mmol/L Potassium 3.5 L (3.6-5.1) mmol/L Chloride 98 (96-114) mmol/L Carbon Dioxide 25 (20-32) mmol/L Anion Gap 14 (7-15) mEq/L BUN 7 (5-24) mg/dL Creatinine 0.7 (0.5-1.5) mg/dL Estimated Creat Clear 167.99 Estimated GFR 122 ml/min Glucose 96 (60-115) mg/dL Calcium 8.3 L (8.4-10.6) mg/dL Total Bilirubin 7.2 H (0.1-1.5) mg/dL Direct Bilirubin 5.8 H (0.0-0.5) mg/dL AST 211 H (12-35) U/L ALT 399 H (4-50) U/L Alkaline Phosphatase 329 H (40-150) U/L Troponin I < 0.01 L (0.01-0.04) ng/mL C-Reactive Protein 2.7 H (0.5-1.0) mg/dL Total Protein 7.5 (6.0-8.3) g/dL Albumin 4.5 (3.3-5.0) g/dL Lipase 2688 H (23-300) U/L Discharge Plan Discharge Clinical Impression: Choledocholithiasis, Pancreatitis Patient Disposition: Home w/ Parent or Adult Discharge Location: [facility] Condition: Stable Additional Instructions: Please go directly to [facility] as discussed Prescriptions: No Action mupirocin 2 % ointment 1 applic topical TID Qty: 22 0RF cephalexin 500 mg capsule 500 mg PO TID Qty: 21 0RF omeprazole 40 mg capsule,delayed release(DR/EC) 40 mg PO DAILY Qty: 15 0RF Follow Up/Referrals: Provider,Not a Local [Primary Care Provider] - Stand Alone Forms: [employer] Info Instructions
--- OUTSIDE RECORDS SUMMARY | 2024-10-14 09:48 | XMS_ITS | Encounter Summary ---
Author Organization [facility] Address [facility] [place] [address] Care Team Providers Care Home Health Speech Therapist Name Role Phone No Ref-Primary, Physician Primary [...] in an abandoned building, in an overnight [place] [facility], or couch-surfing.) Yes 09/12/2024 Are you worried [...] on file Legal Sex Male 3:41 AM EMAIL MARKETER Gender Identity Not on file Sexual Orientation Not on file documented as of this encounter Plan of Treatment Not on file documented as of this encounter Visit Diagnoses Not on filedocumented in this encounter Additional Health Concerns Infection Onset Date Last Indicated Resolved Time Rule Out COVID-19 09/12/2024 09/12/2024 09/12/2024 2:23 PM EMAIL MARKETER Influenza 09/12/2024 09/12/2024 09/19/2024 11:4 1 PM EMAIL MARKETER documented as of this encounter Care Teams Home Health Speech Therapist Relationship Specialty Start Date End Date No Ref-Primary, Physician PCP - General 02/05/24 documented as of this encounter
--- OUTSIDE RECORDS SUMMARY | 2024-10-14 09:48 | XMS_ITS | Clinical Summary ---
Author Organization [facility] Address [address] [place] [id number] Care Team Providers Care Sports Intern Name Role Phone Pcp, No Primary Care [...] age to complete this topic Insurance OWCP [id number] [place] [id number] Care Teams Sports Intern Relationship Specialty Start Date End Date Pcp, No . PCP - General 02/12/24
--- OUTSIDE RECORDS SUMMARY | 2024-10-14 09:48 | XMS_ITS | Encounter Summary ---
Author Organization [facility] Address [address] [place] [id number] Care Team Providers Care Pulmonology Physician Name Role Phone No Ref-Primary, Physician Primary Care Provider Reason for Visit * Reason Comments Shortness of Breath * Auth/Cert (Routine) Specialty Diagnoses / Procedures Referred By Toro t Referred To Contact Med Surg Diagnoses SOB (shortness of breath) Influenza A Hypoxia Community acquired bacterial pneumonia [place] [address] [facility] [address] [place] [address] Phone: tel: fax: Referral ID Status Reason Start Date Expiration Date Visits Re quested Visits Authorized [id number] 1 1 Encounter Details Date Type Department Care Team (Late st Contact Info) Description 09/12/2024 1:46 PM ENGINEER [employer] - 09/13/2024 1:15 PM ENGINEER [employer] Emergency [place] [address] [facility] [address] [place] [address] Smita Calderon MD [facility] [address] [place], [place] [id number] Sinan Mcghee MD [address] [place], [place] [id number] Influenza A; Community acquired bacterial pneumonia; Hypoxia [...] in an abandoned building, in an overnight skilled nursing, or couch-surfing.) Yes 09/12/2024 Are you worried [...] on file Legal Sex Male 3:41 AM ENGINE[employer] Gender Identity Not on file Sexual Orientation Not on file documented as of this encounter Last Filed Vital Signs Vital Sign Reading Time Taken Comments Blood Pressure 134/88 09/13/2024 6:17 AM ENG[employer] Pulse 74 09/13/2024 6:17 AM ENG[employer] Temperature 37 C (98.6 F) 09/13/2024 6:17 AM ENG[employer] Respiratory Rate 18 09/13/2024 6:17 AM ENG[employer] Oxygen Saturation 95% 09/13/2024 6:17 AM ENGINE[employer] Inhaled Oxygen Concentration - - Weight 115.8 kg (255 lb 4.7 oz) 09/13/2024 6:22 AM ENG[employer] Height 188 cm (6' 2) 09/12/2024 1:18 PM ENG[employer] Body Mass Index 32.78 09/12/2024 1:18 PM ENG[employer] documented in this encounter Discharge Summaries * Sinan Mcghee MD - 09/13/2024 10:38 AM CST Images from the original note were not included. [facility] Discharge Summary Hospitalist Date of Admission: 09/12/2024 [...] T4 and A1c Labs:No lab results found. [employer] documented in this encounter Medications at Time [...] Interventions/actions: other None Will continue to monitor. [employer] documented in this encounter H&P Notes * Sinan Mcghee MD - 09/12/2024 4:00 PM CST [facility] History and Physical Hospitalist Date of Admission: [...] encounter: 123.1 kg (271 lb 6.2 oz). [employer] documented in this encounter ED Notes * [place] RN - 09/12/2024 5:41 PM CST Report given to Ann LOPEZ [employer] * Primo Resendiz RN - 09/12/2024 5:30 PM CST Bed: ED18 Expected date: Expected time: Means of arrival: Comments: ED 12 [employer] * Amira Ontiveros RN - 09/12/2024 3:44 PM CST [facility] ED Nurse Handoff Report ED Chief complaint: Shortness of Breath . ED Diagnosis: Final diagnoses: None Allergies: No Known Allergies Code Status: Full Code Activity level - Baseline/Home: independent. Activity Level - Current: standby. Lift room needed: No. Bariatric: No Development Rep Needed: No Isolation: Yes. Infection: Not Applicable [...] for PEDS (2 gIntravenous $New Bag 09/12/24 0094) methylPREDNISolone Na Suc (solu-MEDROL) injection 125 mg (125 mg Intravenous $Given 09/12/24 630) magnesium sulfate 2 g in 50 mL sterile water intermittent infusion (2 g Intravenous $New Bag [id number]) oseltamivir (TAMIFLU) capsule 75 mg (75 mg Oral $Given 09/12/24 1416) azithromycin (ZITHROMAX) tablet 500 mg (500 mg Oral $Given 09/12/24 1537) Drips infusing: Yes For the majority of the shift this patient was Green. Interventions performed were n/a. Sepsis treatment initiated: No Cares/treatment/interventions/medications to be completed following ED care: IV ABX ED Nurse Name: Amira Ontiveros RN 3:44 PM [employer] * Smita Calderon MD - 09/12/2024 1:47 [...] 1413 Normal sinus rhythm Rate 88 bpm. MO interval 144 ms. QRS duration 92 ms. [...] 12, 2024 Smita Calderon MD 09/12/24 1617 [employer] * Yulisa Kapoor RN - 09/12/2024 1:20 PM CST Pt arrives with complaint of shortness of breath. Was at where he was prescribed antibiotics, analbuterol inhaler, low dose steroids, and told to come here if shortness of breath worsens. Patientoxygen 93% room air, tachypneic. Pt was given 2 nebs at the clinic as well, reports he was wheezingprior to this. A&OX4. [employer] documented in this encounter Miscellaneous Notes * [...] Rodriguez RN Isolation Precautions: droplet precautions maintained [employer] * Plan of Care - Kyle Merchant RN - 09/13/2024 5:12 AM CST For vital signs and complete assessments, please see documentation flowsheets. [phone] Pertinent assessments: Pt A&Ox4. Ind in room. [...] PIV saline locked. Elevated BP, other VSS. [employer] * Care Plan - Dena Chanel RN [...] inform them the note was read: Yes [employer] * Pharmacy-Admission Medication History - Syed Linares, [facility] - 09/12/2024 4:30 PM CST Pharmacist Admission Medication History Admission medication history is complete. The information provided in this note is only as accurateas the sources available at the time of the update. Information Source(s): Patient and CareEverywhere/SureScripts via in-person Pertinent Information: patient reported having about one or two Tamiflu capsules left. 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 Changes made to TECHNICAL SUPPORT CONSULTANT medication list: Added: Tamiflu Deleted: None Changed: None Allergies reviewed with patient and updates made in EHR: yes Medication History Completed By: Syed Linares RPH 09/12/2024 4:30 PM TECHNICAL SUPPORT CONSULTANT Med List Medication Sig Last Dose/Taking oseltamivir (TAMIFLU) 75 MG capsule Take 75 mg by mouth 2 times daily. 09/11/2024 [employer] documented in this encounter Plan of Treatment Not on file documented as of this encounter Procedures Procedure Name Priority Date/Time Associated Diagnosis Comments MAGNESIUM Routine 09/13/2024 7:37 AM ENGINE[employer] BASIC METABOLIC PANEL Routine 09/13/2024 7:37 AM ENGINE[employer] CBC WITH PLATELETS Routine 09/13/2024 7: 37 [address] [employer] [address] CHEST PULMONARY EMBOLISM W CONTRAST STAT 09/12/2024 4:00 PM [employer] TROPONIN T, HIGH SENSITIVITY STAT 09/12/2024 3:20 PM [employer] PROCALCITONIN Add-On 09/12/2024 3:20 PM ENG[employer] MAGNESIUM Add-On 09/12/2024 3:20 PM ENG[employer] LACTIC ACID WHOLE BLOOD STAT 09/12/2024 3:20 PM ENG[employer] BLOOD GAS VENOUS STAT 09/12/2024 3:20 PM ENG[employer] BLOOD CULTURE STAT 09/12/2024 3:20 PM ENGINEER [employer] BLOOD CULTURE STAT 09/12/2024 3:20 PM ENGINEER [employer] EXTRA TUBE STAT 09/12/2024 2:11 PM ENGINE[employer]EL EXTRA RED TOP TUBE STAT 09/12/2024 2: 11 PM ENGINE[employer] EXTRA BLUE TOP TUBE STAT 09/12/2024 2 :11 PM ENGINE[employer] RBC AND PLATELET MORPHOLOGY STAT 09/12/2024 2:11 PM ENG[employer] CBC WITH PLATELETS AND DIFFERENTIAL STAT 09/12/2024 2:11 PM ENGINE[employer] TROPONIN T, HIGH SENSITIVITY STAT 09/12/2024 2:11 PM ENGINE[employer] CBC WITH PLATELETS & DIFFERENTIAL STAT 09/12/2024 2:11 PM ENGINE[employer] D DIMER QUANTITATIVE STAT 09/12/2024 2:11 PM ENGINEER [employer]IESEL BASIC METABOLIC PANEL STAT 09/12/2024 2:11 PM ENGINE[employer] XR CHEST 2 VIEWS STAT 09/12/2024 1:52 PM ENGINEER [employer] EKG 12-LEAD, TRACING ONLY STAT 09/12/2024 1:39 PM ENGINE[employer] INFLUENZA A/B, RSV AND SARS-COV2 PCR STAT 09/12/2024 1:25 PM ENGINEER [employer] EKG CARDIAC - HIM SCAN 12:00 AM ENGINEER [employer]EL documented in this encounter Results * (ABNORMAL) Magnesium (09/13/2024 7:37 AM ENGINEER REMOTE CONTR[employer] DIESEL) [facility] Magnesium 2.7(H) 1.7 - 2.3 mg/dL 09/13/2024 8:14 AM ENGINEER [employer] LABORATORY Blood STRUCTURE OF LEFT HAND / Unknown Venipuncture / Unknown 09/13/2024 7:37 AM ENGINEER [employer]OTE [employer] D[employer]EL 09/13/2024 7:43 AM ENGINEER [employer]OTE [employer] DIESEL us Sinan Mcghee MD LAB - BLOOD ORDERABLES Final Res ult [facility] [address] [facility] Lab (1st floor, no room number) [place] [address], [facility] * (ABNORMAL) CBC with platelets (09/13/2024 7:37 AM ENGINEER REMOTE CONTR[employer] DIESEL) [facility] WBC Count 6.2 4.0 - 11.0 10e3/uL 09/13/2024 7:48 AM ENGINE[employer] LABORATORY RBC Count 5.26 4.40 - 5.90 10e6/uL 09/13/2024 7:48 AM ENG[employer] LABORATORY Hemoglobin 13.5 13.3 - 17.7 g/dL 09/13/2024 7:48 AM ENGINE[employer] LABORATORY Hematocrit 40.4 40.0 - 53.0 % 09/13/2024 7:48 AM [facility] MCV 77(L) 78 - 100 fL 09/13/2024 7:48 AM ENGINEER [employer]OTE [employer] LABORATORY MCH 25.7(L) 26.5 - 33.0 pg 09/13/2024 7:48 AM [facility] MCHC 33.4 31.5 - 36.5 g/dL 09/13/2024 7:48 AM [facility] RDW 13.5 10.0 - 15.0 % 09/13/2024 7:48 AM [facility] Platelet Count 303 150 - 450 10e3/uL 09/13/2024 7:48 AM [facility] Blood STRUCTURE OF LEFT HAND / Unknown Venipuncture / Unknown 09/13/2024 7:37 AM ENGINEER [employer]EL 09/13/2024 7:43 AM ENGINEER [employer] us Sinan Mcghee MD LAB - BLOOD ORDERABLES Final Res ult LABORATORY [facility] Acute Care Lab [address] [facility] Lab (1st floor, no room number) [place] [address], [facility] * (ABNORMAL) Basic metabolic panel (09/13/2024 7:37 AM ENGINEER REMOTE CONTR[employer] DIESEL) [facility] Sodium 135 135 - 145 mmol/L 09/13/2024 8:14 AM [facility] Potassium 3.8 3.4 - 5.3 mmol/L 09/13/2024 8:14 AM [facility] Chloride 97(L) 98 - 107 mmol/L 09/13/2024 8:14 AM [facility] Carbon Dioxide (CO2) 23 22 - 29 mmol/L 09/13/2024 8:14 AM [facility] Anion Gap 15 7 - 15 mmol/L 09/13/2024 8:14 AM [employer] LABORATORY Urea Nitrogen 15.2 6.0 - 20.0 mg/dL 09/13/2024 8:14 AM [employer] LABORATORY Creatinine 0.75 0.67 - 1.17 mg/dL 09/13/2024 8:14 AM [employer] LABORATORY GFR Estimate >90 >60 mL/min/1.7 3m2 09/13/2024 8:14 AM [employer] LABORATORY Comment:eGFR calculated usin 2020 CKD-EPI equation. Calcium 8.7(L) 8.8 - 10.4 mg/dL 09/13/2024 8:14 AM [employer] LABORATORY Glucose 129(H) 70 - 99 mg/dL 09/13/2024 8:14 AM [employer] LABORATORY Blood STRUCTURE OF LEFT HAND / Unknown Venipuncture / Unknown 09/13/2024 7:37 AM ENGINEER [employer] 09/13/2024 7:43 AM ENGINE[employer]EL Sinan Mcghee MD LAB - BLOOD ORDERABLES Final Res ult [facility] [address] Lab (1st floor, no room number) [place] [address], [facility] * CT Chest Pulmonary Embolism w Contrast (09/12/2024 4:00 PM ENGINEER [employer]OTE [employer]) Anatomical Region Laterality Modality Chest, SUBRAD CT BODY, UMP CT CHEST Computed Tomography 09/12/2024 4:00 PM ENG[employer] Impressions 09/12/2024 4:11 PM ENGINEER [employer] IMPRESSION: 1. Multifocal pneumonia. 2. No pulmonary embolus. Narrative 09/12/2024 4:11 PM ENGINEER [employer]OTE [employer] DIESEL EXAM: CT CHEST PULMONARY EMBOLISM W CONTRAST [...] 2. No pulmonary embolus. Smita Calderon MD [facility] CT ORDERABLE S Final Result * (ABNORMAL) Magnesium (09/12/2024 3:20 PM ENGINEER [employer]OTE [employer]EL) Magnesium 3.2(H) 1.7 - 2.3 mg/dL 09/12/2024 7:09 PM ENGINEER [employer] [facility] LABORATORY Blood BLOOD SPECIMEN / Unknown Venipuncture / Unknown 09/12/2024 3:20 PM ENGINEER [employer]OTE [employer]EL 09/12/2024 3:39 PM ENGINEER [employer] Sinan Mcghee MD LAB - BLOOD ORDERABLES Final Res ult Performing Organization Address City/[facility]/ZIP Co de Phone Number [facility] [address] Lab (1st floor, no room number) [place] [address] * (ABNORMAL) Procalcitonin (09/12/2024 3:20 PM ENGINEER [employer]OTE CONTR[employer] DIESEL) Procalcitonin 1.22(H) <0.50 ng/mL 09/12/2024 4:37 PM ENGINE[employer] LABORATORY Comment: Interpretation and Recommendations <0.5 ng/mL: Systemic bacterial infection unlikely. Local bacterial infection is possible. 0.5-1.99 ng/mL: Systemic bacterial infection possible, but various other conditions are known to induce PCT as well. >=2.00 ng/mL: Systemic bacterial infection likely, unless other causes are known. Decision to start antibiotics should not be based on procalcitonin level alone. See Procalcitonin Guidance document for more details. [email or web address] Factors that may affect PCT levels (not [...] Unknown Venipuncture / Unknown 09/12/2024 3:20 PM ENGINEER [employer]OTE [employer]EL 09/12/2024 3:39 PM ENGINEER [employer]EL Sinan Mcghee MD LAB - BLOOD ORDERABLES Final Res ult Performing Organization Address [facility]/ZIP Co de Phone Number [facility] [address] Lab (1st floor, no room number) [place] [address] * Blood Culture Peripheral Blood (09/12/2024 3:20 PM ENGINEER [employer]OTE [employer] DIESEL) Culture No Growth 09/17/2024 6:16 PM ENGINEER REMOTE [employer] D[employer]EL [facility] Blood BLOOD SPECIMEN / Unknown Venipuncture / Unknown 09/12/2024 3:20 PM ENGINEER [employer]OTE [employer]EL 09/12/2024 3:39 PM ENGINEER [employer]OTE [employer] us Smita Calderon MD LAB - MICRO GENE RAL ORDERABLES Final Result [facility]AT[facility] Inf. Diseases Diag. Lab [address] [facility], Room [address] [phone] * Blood Culture Peripheral Blood (09/12/2024 3:20 PM ENGINEER REMOTE CONTR[employer] DIESEL) Culture No Growth 09/17/2024 6:16 PM ENGINEER [employer] DIESEL [facility] Blood BLOOD SPECIMEN / Unknown Venipuncture / Unknown 09/12/2024 3:20 PM ENGINEER [employer]OTE [employer] DIESEL 09/12/2024 3:39 PM ENGINEER [employer] us Smita Calderon MD LAB - MICRO GENE RAL ORDERABLES Final Result [facility] Inf. Diseases Diag. Lab [address] [facility], [address] [phone] * (ABNORMAL) Blood gas venous (09/12/2024 3:20 PM ENGINEER [employer]OTE [employer]) pH Venous 7.44(H) 7.32 - 7.43 09/12/2024 3:44 PM ENGINEER [employer]OTE [employer] RH LABORATORY pCO2 Venous 45 40 - 50 mm Hg 09/12/2024 3:44 PM ENGINEER [employer] [facility] LABORATORY pO2 Venous 17(L) 25 - 47 mm Hg 09/12/2024 3:44 PM ENGINEER [employer]OTE [employer] [facility] LAB[facility]ATORY Bicarbonate Venous 31(H) 21 - 28 mmol/L 09/12/2024 3:44 PM ENGINEER [employer]OTE [employer] DIES[employer] RH LABORATORY Base Excess/Deficit Venous 5.3(H) -3.0 - 3.0 mmol/L 09/12/2024 3:44 PM ENGINEER [employer]OTE [employer] DIES[employer] [facility] LAB[facility]ATORY FIO2 2 ARUN 09/12/2024 3:44 PM ENGINEER [employer]OTE [employer] [facility] LAB[facility]ORY Comment:2 liters NC Oxyhemoglobin Venous 24(L) 70 - 75 % 09/12/2024 3:44 PM ENGINEER [employer]OTE [employer]IES[employer] [facility] LAB[facility]ATORY O2 Sat, Venous 24.6(L) 70.0 - 75.0 % 09/12/2024 3:44 PM ENGINEER [employer]OTE [employer]IES[employer] [facility] LABORATORY Blood, venous BLOOD SPECIMEN / Unknown Venipuncture / Unknown 09/12/2024 3:20 PM ENGINEER [employer]OTE [employer]EL 09/12/2024 3:39 PM ENGINEER [employer]OTE [employer] DIESEL Narrative [facility] LABORATORY - 09/12/2024 3:44 PM ENGINEER [employer]OTE [employer] D[employer]EL In healthy individuals, oxyhemoglobin (O2Hb) and oxygen saturation (SO2) are approximately equal. In the presence of dyshemoglobins, oxyhemoglobin can be considerably lower than oxygen saturation. Smita Calderon MD LAB - BLOOD IRENA LOPEZ Final Result Performing Organization Address City/[facility]/ZIP Co de Phone Number [facility] Lab [address] Lab (1st floor, no room number) [address] * Lactic acid whole blood (09/12/2024 3:20 PM ENGINEER [employer]OTE [employer] DIESEL) [facility] Lactic Acid 1.6 0.7 - 2.0 mmol/L 09/12/2024 3:44 PM ENGINEER REMOTE [employer] DIES[employer] RH LABORATORY Blood, venous BLOOD SPECIMEN / Unknown Venipuncture / Unknown 09/12/2024 3:20 PM ENGINEER [employer]OTE [employer] DIESEL 09/12/2024 3:39 PM ENGINEER [employer]OTE [employer]EL Smita Calderon MD LAB - BLOOD ORDE RABSUZANNE Final Result [facility] Lab [address] Lab (1st floor, no room number) [address] * Troponin T, High Sensitivity (09/12/2024 3:20 PM ENGINEER REMOTE CONTR[employer] DIESEL) Troponin T, High Sensitivity 9 <=22 ng/L 09/12/2024 4:00 PM ENGINEER [employer] LABORATORY Comment: Either a High Sensitivity Troponin [...] Unknown Venipuncture / Unknown 09/12/2024 3:20 PM ENGINEER [employer]OTE [employer]IESEL 09/12/2024 3:39 PM ENGINEER [employer]IESEL Smita Calderon MD LAB - BLOOD ORDE JESSICA Final Result Performing Organization Address City/[facility]/ZIP Co de Phone Number [facility] Lab [address] Lab (1st floor, no room number) [place] [phone], [facility] * RBC and Platelet Morphology (09/12/2024 2:11 PM ENGINEER REMOTE CONTR[employer] DIESEL) Pathologist [facility] RBC Morphology Confirmed RBC Indices 09/12/2024 3:22 PM ENGINE[employer] LABORATORY Platelet Assessment Automated Count Confirmed. Platelet morphology is normal. Automated Count Confirmed. Platelet morphology is normal. [facility] 09/12/2024 3:22 PM ENGINEER [employer] LABORATORY Blood BLOOD SPECIMEN / Unknown Venipuncture / Unknown 09/12/2024 2:11 PM ENGINEER [employer]EL 09/12/2024 2:15 PM ENGINEER [employer]OTE [employer] us Smita Calderon MD LAB - BLOOD ORDE RABSUZANNE Final Result [facility] [address] Lab (1st floor, no room number) [place] [address], [facility] * (ABNORMAL) CBC with platelets and differential (09/12/2024 2:11 PM ENGINEER REMOTE [employer] DIESEL) [facility] Signature WBC Count 6.7 4.0 - 11.0 10e3/uL 09/12/2024 3:22 PM ENGINEER REMOTE [employer] DIES[employer] [facility] LABORATORY RBC Count 5.61 4.40 - 5.90 10e6/uL 09/12/2024 3:22 PM ENGINEER [employer]IES[employer] [facility] LABORATORY Hemoglobin 14.5 13.3 - 17.7 g/dL 09/12/2024 3:22 PM ENGINEER [employer] [facility] LABORATORY Hematocrit 43.1 40.0 - 53.0 % 09/12/2024 3:22 PM ENGINEER [employer]OTE [employer] RH LABORATORY MCV 77(L) 78 - 100 fL 09/12/2024 3:22 PM ENGINEER [employer]OTE [employer]IES[employer] RH LABORATORY MCH 25.8(L) 26.5 - 33.0 pg 09/12/2024 3:22 PM ENGINEER [employer] RH LABORATORY MCHC 33.6 31.5 - 36.5 g/dL 09/12/2024 3:22 PM ENGINEER [employer] RH LABORATORY RDW 13.6 10.0 - 15.0 % 09/12/2024 3:22 PM ENGINEER [employer]OTE [employer] [facility] LABORATORY Platelet Count 256 150 - 450 10e3/uL 09/12/2024 3:22 PM ENGINEER [employer] [facility] LAB[facility] % Neutrophils 79 % 09/12/2024 3:22 PM ENGINEER REMOTE CONTR[employer] DIES[employer] RH LAB[facility] % Lymphocytes 9 % 09/12/2024 3:22 PM ENGINEER REMOTE [employer] DIES[employer] RH LAB[facility] % Monocytes 10 % 09/12/2024 3:22 PM ENGINEER REMOTE CONTR[employer]IES[employer] RH LABORATORY % Eosinophils 0 % 09/12/2024 3:22 PM ENGINEER [employer]OTE CONTR[employer] DIES[employer] RH LAB[facility]ORY % Basophils 0 % 09/12/2024 3:22 PM ENGINEER REMOTE CONTR[employer] DIES[employer] RH LABORATORY % Immature Granulocytes 2 % 09/12/2024 3:22 PM ENGINEER [employer]OTE [employer]IES[employer] RH LABORATORY NRBCs per 100 WBC 0 <1 /100 025 3:22 PM ENGINEER REMOTE [employer] DIESEL RH LABORATORY Absolute Neutrophils 5.3 1.6 - 8.3 10e3/uL 09/12/2024 3:22 PM ENGINEER REMOTE CONTR[employer] DIES[employer] RH LABORATORY Absolute Lymphocytes 0.6(L) 0.8 - 5.3 10e3/uL 09/12/2024 3:22 PM ENGINEER REMOTE CONTR[employer] DIESEL [facility] LAB[facility]ATORY Absolute Monocytes 0.7 0.0 - 1.3 10e3/uL 09/12/2024 3:22 PM ENGINEER REMOTE CONTR[employer] DIES[employer] RH LABORATORY Absolute Eosinophils 0.0 0.0 - 0.7 10e3/uL 09/12/2024 3:22 PM ENGINEER REMOTE CONTR[employer] DIES[employer] [facility] LAB[facility]ATORY Absolute Basophils 0.0 0.0 - 0.2 10e3/uL 09/12/2024 3:22 PM ENGINEER REMOTE CONTR[employer] DIESEL RH LABORATORY Absolute Immature Granulocytes 0.1 <=0.4 10e3/uL 09/12/2024 3:22 PM ENGINEER REMOTE CONTR[employer] DIESEL RH LABORATORY Absolute NRBCs 0.0 10e3/uL 09/12/2024 3:22 PM ENGINEER [employer]IES[employer] RH LABORATORY Blood BLOOD SPECIMEN / Unknown Venipuncture / Unknown 09/12/2024 2:11 PM ENGINEER [employer]OTE [employer]EL 09/12/2024 2:15 PM ENGINEER [employer] us Smita Calderon MD LAB - BLOOD ORDE JESSICA Final Result [facility] Lab [address] Lab (1st floor, no room number) [address] * Extra Red Top Tube (09/12/2024 2:11 PM ENGINEER [employer]OTE [employer] DIESEL) Hold Specimen [facility] 09/12/2024 3:16 PM ENGINEER [employer]OTE [employer] DIESEL RH LABORATORY Blood BLOOD SPECIMEN / Unknown Venipuncture / Unknown 09/12/2024 2:11 PM ENGINEER [employer]EL 09/12/2024 2:15 PM ENGINEER REMOTE [employer] us Smita Calderon MD LAB - BLOOD ORDE JESSICA Final Result [facility] Lab [address] Lab (1st floor, no room number) [address] * Extra Blue Top Tube (09/12/2024 2:11 PM ENGINEER REMOTE CONTR[employer] DIESEL) Hold Specimen [facility] 09/12/2024 3:16 PM ENGINEER REMOTE [employer] DIESEL RH LABORATORY Blood BLOOD SPECIMEN / Unknown Venipuncture / Unknown 09/12/2024 2:11 PM ENGINEER [employer]EL 09/12/2024 2:15 PM ENGINEER REMOTE [employer] DIES[employer] us Smita Calderon MD LAB - BLOOD ORDE JESSICA Final Result LABORATORY [facility] Lab [address] [employer] Lab (1st floor, no room number) [place] [address] * (ABNORMAL) D dimer quantitative (09/12/2024 2:11 PM ENGINEER REMOTE [employer] DIESEL) Pathologist [facility] D-Dimer Quantitative 0.75(H) 0.00 - 0.50 ug/mL FEU 09/12/2024 2:29 PM ENGINEER [employer]EL LABORATORY Blood BLOOD SPECIMEN / Unknown Venipuncture / Unknown 09/12/2024 2:11 PM ENG[employer]EL 09/12/2024 2:15 PM ENGINEER [employer]EL Narrative LABORATORY - 09/12/2024 2:29 PM ENGINEER [employer]OTE [employer]EL This D-dimer assay is intended for use in conjunction with a clinical pretest probability assessment model to exclude pulmonary embolism (PE) and deep venous thrombosis (DVT) in outpatients suspected of PE or DVT. The cut-off value is 0.50 ug/mL FEU. Smita Calderon MD LAB - BLOOD ORDE RIDGESUZANNE Final Result Performing Organization Address [facility]/ZIP Co de Phone Number [facility] [address] Lab (1st floor, no room number) [place] [phone] * Troponin T, High Sensitivity (09/12/2024 2:11 PM ENGINEER REMOTE CONTR[employer] DIESEL) [facility] Troponin T, High Sensitivity 8 <=22 ng/L 09/12/2024 2:42 PM ENGINEER [employer] LABORATORY Comment: Either a High Sensitivity Troponin [...] Unknown Venipuncture / Unknown 09/12/2024 2:11 PM ENGINE[employer] 09/12/2024 2:15 PM ENGINEER [employer]EL Smita Calderon MD LAB - BLOOD ORDE JESSICA Final Result LABORATORY [facility] [address] Lab (1st floor, no room number) [place] [address], [facility] * (ABNORMAL) Basic metabolic panel (09/12/2024 2:11 PM [employer]) [facility] Sodium 135 135 - 145 mmol/L 09/12/2024 2:42 PM [facility] Potassium 4.0 3.4 - 5.3 mmol/L 09/12/2024 2:42 PM [facility] Chloride 94(L) 98 - 107 mmol/L 09/12/2024 2:42 PM [facility] Carbon Dioxide (CO2) 27 22 - 29 mmol/L 09/12/2024 2:42 PM [facility] Anion Gap 14 7 - 15 mmol/L 09/12/2024 2:42 PM [facility] Urea Nitrogen 15.1 6.0 - 20.0 mg/dL 09/12/2024 2:42 PM [facility] Creatinine 0.95 0.67 - 1.17 mg/dL 09/12/2024 2:42 PM [facility] GFR Estimate >90 >60 mL/min/1.7 3m2 09/12/2024 2:42 PM [facility] Comment:eGFR calculated usin g 2020 CKD-EPI equation. Calcium 8.8 8.8 - 10.4 mg/dL 09/12/2024 2:42 PM [facility] Glucose 122(H) 70 - 99 mg/dL 09/12/2024 2:42 PM [facility] Blood BLOOD SPECIMEN / Unknown Venipuncture / Unknown 09/12/2024 2:11 PM [employer] 09/12/2024 2:15 PM [employer] Smita Calderon MD LAB - BLOOD IRENA LOPEZ Final Result [facility] [address] Lab (1st floor, no room number) [place] [address] * XR Chest 2 Views (09/12/2024 1:52 PM [employer]) Anatomical Region Laterality Modality Chest Computed Radiogr aphy 09/12/2024 1:52 PM [employer] Impressions 09/12/2024 1:55 PM [employer] IMPRESSION: Patchy infiltrates in the mid and lower lungs bilaterally typical of bilateral pneumonia. Narrative 09/12/2024 1:55 PM [employer] EXAM: XR CHEST 2 VIEWS LOCATION: [place] [...] EKG 12-lead, tracing only (09/12/2024 1:39 PM [employer]) Systolic Blood Pressure mmHg RADIOLOGY RESULTS Diastolic Blood Pressure mmHg RADIOLOGY RESULTS Ventricular Rate 88 BPM RAD IOLOGY RESULTS Atrial Rate 88 BPM RADIOLOG Y RESULTS MO Interval 144 ms RADIOLOG Y RESULTS QRS Duration 92 ms RADIOLO GY RESULTS QT 358 ms RADIOLOGY RESULTS QTc 433 ms RADIOLOGY RESULTS P [place] 10 degrees RADIOLOGY RESULTS R AXIS 31 degrees RADIOLOGY RESULTS T [place] 19 degrees RADIOLOGY RESULTS Interpretation ECG Sinus rhythm Normal ECG No previous ECGs available Confirmed by - EMERGENCY ROOM, PHYSICIAN ([id number]), acquisition editor FIDEL MANDUJANO ([id number]) on 09/12/2024 1:42:55 PM RADIOLOGY RESULTS 09/12/2024 1:39 PM [employer] 09/12/2024 1:42 PM [employer] Smita Calderon MD ECG ORDERABLES Edited Result - Final RADIOLOGY RESULTS * (ABNORMAL) Influenza A/B, RSV and SARS-CoV2 PCR (COVID-19) Nasopharyngeal (09/12/2024 1:25 PM [employer]) Influenza A PCR Positive(A) Negative 09/12/2024 2:23 PM [employer] [facility] Influenza B PCR Negative Negative 09/12/2024 2:23 PM [employer] [facility] RSV PCR Negative Negative 09/12/2024 2:23 PM [employer] [facility] SARS CoV2 PCR Negative Negative 09/12/2024 2:23 PM [employer] [facility] Comment:NEGATIVE: SARS-CoV-2 (COVID-19) RNA not detected, presumed negative. Swab NASOPHARYNGEAL STRUCTURE / Unknown Non-blood Collection / Unknown 09/12/2024 1:25 PM [employer] 09/12/2024 1:29 PM [employer] Narrative [facility] - 09/12/2024 2:23 PM [employer] Testing was performed using the Xpert Xpress CoV2/Flu/RSV Assay on the [employer] GeneXpert Instrument. This test should be ordered [...] management. This test was validated by the [facility]. These laboratories are certified under the Clinical Laboratory Improvement Amendments of 1988 (CLIA-88) as qualified to perfom high complexity laboratory testing. us Smita Calderon MD LAB - MICRO GENE RAL ORDERABLES Final Result LABORATORY [facility] [address] Lab (1st floor, no room number) [place] [address], [facility] * EKG Cardiac - HIM Scan (09/12/2024 12:00 AM [employer]) 09/12/2024 us Provider Outside ECG ORDERABLES Final [...] PneumoniaIndications:Community Acquired Pneumonia $Given 09/12/2024 3:37 PM [employer] 500 mg cefTRIAXone (ROCEPHIN) 2 g vial to attach to NS 100 ml bag for ADULTS or NS 50 ml bag for PEDS STAT, 2 g, Intravenous, ONCE, On Thu09/12/24 at 1515, For 1 dose, Lactated Ringer's solution is not compatible with ceftriaxone for injection, Indications: Community Acquired PneumoniaIndications:Community Acquired Pneumonia $New Bag 09/12/2024 3:37 PM [employer] [address] scan flush Intravenous, 100 mL, ONCE, On Thu09/12/24 at 1550, For 1 dose, This entry is for use by Radiology to intermittently used as a flush in patients receiving a CT scan. $Given 09/12/2024 3:48 PM [employer] 100 mLs guaiFENesin (MUCINEX) 12 hr tablet 600 mg 600 mg, Oral, 2 TIMES DAILY, First dose on Thu09/12/24 at 2000, DO NOT CRUSH. $Given 09/13/2024 8:50 AM [employer] 600 mg $Given 09/12/2024 8:03 PM [employer] 600 mg iopamidol (ISOVUE-370) solution 500 mL 500 mL, Intravenous, ONCE, On Thu09/12/24 at 1550, For 1 dose $Given 09/12/2024 3:48 PM [employer] 88 mLs ipratropium - albuterol 0.5 mg/2.5 mg/3 mL (DUONEB) neb solution 3 mL 3 mL, Nebulization, ONCE, On Thu09/12/24 at 1405, For 1 dose $Given 09/12/2024 4:24 PM [employer] 3 mLs magnesium sulfate 2 g in 50 mL sterile water intermittent infusion 2 g, Intravenous, Administer over 60 Minutes, at 50 mL/hr, ONCE, On Thu09/12/24 at 1405, For 1 dose $New Bag 09/12/2024 2:16 PM [employer] 2 g 50 m L/hr methylPREDNISolone Na Suc (solu-MEDROL) injection 125 mg 125 mg, Intravenous, ONCE, On Thu09/12/24 at 1405, For 1 dose $Given 09/12/2024 2:16 PM [employer] 125 mg ondansetron (ZOFRAN ODT) ODT tab [...] dose, Indications: InfluenzaIndications:Influenza $Given 09/12/2024 2:16 PM [employer] 75 mg oseltamivir (TAMIFLU) capsule 75 mg Routine, 75 mg, Oral, 2 TIMES DAILY, First dose on Thu09/13/24 at 0800, Indications: InfluenzaIndications:Influenza $Given 09/13/2024 8:50 AM [employer] 75 mg senna-docusate (SENOKOT-S/PERICOLACE) 8.6-50 MG per [...] IV dormant line $Given 09/13/2024 8:51 AM [employer] 3 mLs $Given 09/13/2024 12:55 AM [employer] 3 mLs $Given 09/12/2024 6:07 PM [employer] 3 mLs documented in this encounter Active and Recently Administered Medications Times are shown in [employer]. Scheduled Medication Order 09/11/2024 09/12/2024 09/13/2024 azithromycin [...] Out COVID-19 09/12/2024 09/12/2024 09/12/2024 2:23 PM [employer] Influenza 09/12/2024 09/12/2024 09/19/2024 11:4 1 PM [employer] documented as of this encounter Care Teams Pulmonology Physician Relationship Specialty Start Date End Date No Ref-Primary, Physician PCP - General 02/05/24 documented as of this encounter
--- OUTSIDE RECORDS SUMMARY | 2024-10-14 09:49 | XMS_ITS | Clinical Summary ---
Author Organization [facility] Address [address] [place] [id number] Care Team Providers Care Executive Vice President Business Development Name Role Phone No Ref-Primary, Physician Primary Care Provider Allergies No known active allergies Medications * This document contains information received from the source organization and may not represent a complete record from that organization. albuterol (PROAIR HFA/PROVENTIL HFA/VENTOLIN HFA) 108 (90 Base) MCG/ACT inhalerIndicati ons:Influenza A Inhale 2 puffs into the lungs every 6 hours as needed for shortness of breath, wheezing or cough. 18 g 5 Active oseltamivir (TAMIFLU) 75 MG capsuleIndicati ons:Influenza A Take 1 capsule (75 mg) by mouth 2 times daily for 4 days. 8 capsule 5 09/17/19 25 azithromycin (ZITHROMAX) 250 MG tabletIndicatio ns:Community Acquired Pneumonia Take 1 tablet (250 mg) by mouth daily for 4 days. 4 tablet 5 09/17/19 25 benzonatate (TESSALON) 100 MG capsuleIndicati ons:Influenza A Take 1 capsule (100 mg) by mouth 3 times daily as needed for cough. 14 capsule 5 09/20/19 25 cefuroxime (CEFTIN) 500 MG tabletIndicatio ns:Community acquired bacterial pneumonia Take 1 tablet (500 mg) by mouth 2 times daily for 7 days. 14 tablet 5 09/20/19 25 guaiFENesin (MUCINEX) 600 MG 12 hr tabletIndicatio ns:Influenza A Take 1 tablet (600 mg) by mouth 2 times daily for 7 days. 14 tablet 5 09/20/19 25 Active Problems Problem Noted Date Diagnosed Date Influenza A 09/12/2024 Hypoxia 09/12/2024 Community acquired bacterial pneumonia 5 SOB (shortness of breath) 09/12/2024 Encounters Date Type Department Care Team Description 09/12/2024 1:46 PM NURSERY LABORER - 09/13/2024 1:15 PM NURSERY LABORER Emergency [place] [address] [facility] [address] [place] [address] Smita Calderon MD Bray, Scott, MD Influenza [...] Date Recorded Do you have housing? (Cyrus g is defined as stable permanent housing and does not include staying ouside in a car, in a tent, in an abandoned building, in an overnight chcf, or couch-surfing.) Yes 09/12/2024 Are you worried [...] on file Legal Sex Male 3:41 AM NURSERY LABORER Gender Identity Not on file Sexual Orientation Not on file Last Filed Vital Signs Vital Sign Reading Time Taken Comments Blood Pressure 134/88 09/13/2024 6:17 AM NURSERY LABORER Pulse 74 09/13/2024 6:17 AM NURSERY LABORER Temperature 37 C (98.6 F) 09/13/2024 6:17 AM NURSERY LABORER Respiratory Rate 18 09/13/2024 6:17 AM NURSERY LABORER Oxygen Saturation 95% 09/13/2024 6:17 AM NURSERY LABORER Inhaled Oxygen Concentration - - Weight 115.8 kg (255 lb 4.7 oz) 09/13/2024 6:22 AM NURSERY LABORER Height 188 cm (6' 2) 09/12/2024 1:18 PM NURSERY LABORER Body Mass Index 32.78 09/12/2024 1:18 PM NURSERY LABORER Plan of Treatment Health Maintenance Due Date [...] Diagnosis Comments MAGNESIUM Routine 09/13/2024 7:37 AM NURSERY LABORER CBC WITH PLATELETS Routine 09/13/2024 7: 37 AM NURSERY LABORER BASIC METABOLIC PANEL Routine 09/13/2024 7:[address] CHEST PULMONARY EMBOLISM W CONTRAST STAT 09/12/2024 4:00 PM NURSERY LABORER BLOOD CULTURE STAT 09/12/2024 3:20 PM NURSERY LABORER BLOOD CULTURE STAT 09/12/2024 3:20 PM NURSERY LABORER MAGNESIUM Add-On 09/12/2024 3:20 PM NURSERY LABORER PROCALCITONIN Add-On 09/12/2024 3:20 PM NURSERY LABORER BLOOD GAS VENOUS STAT 09/12/2024 3:20 PM NURSERY LABORER LACTIC ACID WHOLE BLOOD STAT 09/12/2024 3:20 PM NURSERY LABORER TROPONIN T, HIGH SENSITIVITY STAT 09/12/2024 3:20 PM NURSERY LABORER CBC WITH PLATELETS & DIFFERENTIAL STAT 09/12/2024 2:11 PM NURSERY LABORER RBC AND PLATELET MORPHOLOGY STAT 09/12/2024 2:11 PM NURSERY LABORER CBC WITH PLATELETS AND DIFFERENTIAL STAT 09/12/2024 2:11 PM NURSERY LABORER EXTRA RED TOP TUBE STAT 09/12/2024 2: 11 PM NURSERY LABORER EXTRA BLUE TOP TUBE STAT 09/12/2024 2 :11 PM NURSERY LABORER D DIMER QUANTITATIVE STAT 09/12/2024 2:11 PM NURSERY LABORER TROPONIN T, HIGH SENSITIVITY STAT 09/12/2024 2:11 PM NURSERY LABORER BASIC METABOLIC PANEL STAT 09/12/2024 2:11 PM NURSERY LABORER EXTRA TUBE STAT 09/12/2024 2:11 PM NURSERY LABORER XR CHEST 2 VIEWS STAT 09/12/2024 1:52 PM NURSERY LABORER EKG 12-LEAD, TRACING ONLY STAT 09/12/2024 1:39 PM NURSERY LABORER INFLUENZA A/B, RSV AND SARS-COV2 PCR STAT 09/12/2024 1:25 PM NURSERY LABORER EKG CARDIAC - HIM SCAN 12:00 AM NURSERY LABORER HIV ANTIGEN ANTIBODY COMBO Routine 11/12/2011 7:25 AM CDT ACUTE HEPATITIS PANEL Routine 11/12/2011 7:25 AM CDT from Last 3 Months or Most Recently Relevant to Health Maintenance Results * (ABNORMAL) Magnesium (09/13/2024 7:37 AM NURSERY LABORER) Only the most recent of2 resultswithin the time period is included. Magnesium 2.7(H) 1.7 - 2.3 mg/dL 09/13/2024 8:14 AM NURSERY LABORER LABORATORY Blood STRUCTURE OF LEFT HAND / Unknown Venipuncture / Unknown 09/13/2024 7:37 AM NURSERY LABORER 09/13/2024 7:43 AM NURSERY LABORER us Sinan Mcghee MD LAB - BLOOD ORDERABLES Final Res ult LABORATORY [facility] [address] Lab (1st floor, no room number) [place] [address], [facility] * (ABNORMAL) Basic metabolic panel (09/13/2024 7:37 AM NURSERY LABORER) Only the most recent of2 resultswithin the time period is included. Sodium 135 135 - 145 mmol/L 09/13/2024 8:14 AM [facility] Potassium 3.8 3.4 - 5.3 mmol/L 09/13/2024 8:14 AM [facility] Chloride 97(L) 98 - 107 mmol/L 09/13/2024 8:14 AM [facility] Carbon Dioxide (CO2) 23 22 - 29 mmol/L 09/13/2024 8:14 AM [facility] Anion Gap 15 7 - 15 mmol/L 09/13/2024 8:14 AM [facility] Urea Nitrogen 15.2 6.0 - 20.0 mg/dL 09/13/2024 8:14 AM [facility] Creatinine 0.75 0.67 - 1.17 mg/dL 09/13/2024 8:14 AM [facility] GFR Estimate >90 >60 mL/min/1.7 3m2 09/13/2024 8:14 AM [facility] Comment:eGFR calculated us2020 CKD-EPI equation. Calcium 8.7(L) 8.8 - 10.4 mg/dL 09/13/2024 8:14 AM [facility] Glucose 129(H) 70 - 99 mg/dL 09/13/2024 8:14 AM [facility] Blood STRUCTURE OF LEFT HAND / Unknown Venipuncture / Unknown 09/13/2024 7:37 AM NURSERY LABORER 09/13/2024 7:43 AM NURSERY LABORER Sinan Mcghee MD LAB - BLOOD ORDERABLES Final Res ult LABORATORY [facility] [address] Lab (1st floor, no room number) [place] [address], [facility] * (ABNORMAL) CBC with platelets (09/13/2024 7:37 AM NURSERY LABORER) Pathologist [facility] WBC Count 6.2 4.0 - 11.0 10e3/uL 09/13/2024 7:48 AM NURSERY LABORER LABORATORY RBC Count 5.26 4.40 - 5.90 10e6/uL 09/13/2024 7:48 AM NURSERY LABORER [facility] Hemoglobin 13.5 13.3 - 17.7 g/dL 09/13/2024 7:48 AM NURSERY LABORER [facility] Hematocrit 40.4 40.0 - 53.0 % 09/13/2024 7:48 AM NURSERY LABORER [facility] LAB[facility]ATORY MCV 77(L) 78 - 100 fL 09/13/2024 7:48 AM NURSERY LABORER [facility] LAB[facility] MCH 25.7(L) 26.5 - 33.0 pg 09/13/2024 7:48 AM NURSERY LABORER [facility] LAB[facility]ATORY MCHC 33.4 31.5 - 36.5 g/dL 09/13/2024 7:48 AM NURSERY LABORER [facility] LAB[facility]ATORY RDW 13.5 10.0 - 15.0 % 09/13/2024 7:48 AM NURSERY LABORER [facility] Platelet Count 303 150 - 450 10e3/uL 09/13/2024 7:48 AM NURSERY LABORER [facility] Blood STRUCTURE OF LEFT HAND / Unknown Venipuncture / Unknown 09/13/2024 7:37 AM NURSERY LABORER 09/13/2024 7:43 AM NURSERY LABORER Sinan Mcghee MD LAB - BLOOD ORDERABLES Final Res ult LABORATORY [facility] [address] Lab (1st floor, no room number) [place] [address] * CT Chest Pulmonary Embolism w Contrast (09/12/2024 4:00 PM NURSERY LABORER) Anatomical Region Laterality Modality Chest, SUBRAD CT BODY, UMP CT CHEST Computed Tomography 09/12/2024 4:00 PM NURSERY LABORER Impressions 09/12/2024 4:11 PM NURSERY LABORER IMPRESSION: 1. Multifocal pneumonia. 2. No pulmonary embolus. Narrative 09/12/2024 4:11 PM NURSERY LABORER EXAM: CT CHEST PULMONARY EMBOLISM W CONTRAST LOCATION: [facility] DATE: 09/12/2024 INDICATION: shortness of breath COMPARISON: [...] CT CHEST PULMONARY EMBOLISM W CONTRAST LOCATION: [facility] DATE: 09/12/2024 INDICATION: shortness of breath COMPARISON: [...] 2. No pulmonary embolus. Smita Calderon MD [facility] [facility] ORDERABLE S Final Result * Troponin T, High Sensitivity (09/12/2024 3:20 PM NURSERY LABORER) Only the most recent of2 resultswithin the time period is included. Troponin T, High Sensitivity 9 <=22 ng/L 09/12/2024 4:00 PM NURSERY LABORER LABORATORY Comment: Either a High Sensitivity Troponin [...] Unknown Venipuncture / Unknown 09/12/2024 3:20 PM NURSERY LABORER 09/12/2024 3:39 PM NURSERY LABORER Smita Calderon MD LAB - BLOOD ORDE JESSICA Final Result LABORATORY [facility] [address] [facility] Lab (1st floor, no room number) [place] [address] * (ABNORMAL) Procalcitonin (09/12/2024 3:20 PM NURSERY LABORER) Procalcitonin 1.22(H) <0.50 ng/mL 09/12/2024 4:37 PM NURSERY LABORER LABORATORY Comment: Interpretation and Recommendations <0.5 ng/mL: Systemic bacterial infection unlikely. Local bacterial infection is possible. 0.5-1.99 ng/mL: Systemic bacterial infection possible, but various other conditions are known to induce PCT as well. >=2.00 ng/mL: Systemic bacterial infection likely, unless other causes are known. Decision to start antibiotics should not be based on procalcitonin level alone. See Procalcitonin Guidance document for more details. https://formweb.com/files/[email or web address] [email or web address] Factors that may affect PCT levels (not [...] Unknown Venipuncture / Unknown 09/12/2024 3:20 PM NURSERY LABORER 09/12/2024 3:39 PM NURSERY LABORER Sinan Mcghee MD LAB - BLOOD ORDERABLES Final Res ult [facility] [address] Lab (1st floor, no room number) [address] * Lactic acid whole blood (09/12/2024 3:20 PM NURSERY LABORER) Lactic Acid 1.6 0.7 - 2.0 mmol/L 09/12/2024 3:44 PM NURSERY LABORER LABORATORY Blood, venous BLOOD SPECIMEN / Unknown Venipuncture / Unknown 09/12/2024 3:20 PM NURSERY LABORER 09/12/2024 3:39 PM NURSERY LABORER Smita Calderon MD LAB - BLOOD ORDE JESSICA Final Result [facility] [address] Lab (1st floor, no room number) [address] * (ABNORMAL) Blood gas venous (09/12/2024 3:20 PM NURSERY LABORER) pH Venous 7.44(H) 7.32 - 7.43 09/12/2024 3:44 PM NURSERY LABORER [facility] LABORATORY pCO2 Venous 45 40 - 50 mm Hg 09/12/2024 3:44 PM NURSERY LABORER [facility] LABORATORY pO2 Venous 17(L) 25 - 47 mm Hg 09/12/2024 3:44 PM NURSERY LABORER [facility] LAB[facility]ORY Bicarbonate Venous 31(H) 21 - 28 mmol/L 09/12/2024 3:44 PM NURSERY LABORER [facility] LAB[facility]ATORY Base Excess/Deficit Venous 5.3(H) -3.0 - 3.0 mmol/L 09/12/2024 3:44 PM NURSERY LABORER [facility] LABORATORY FIO2 2 ARUN 09/12/2024 3:44 PM NURSERY LABORER [facility] LABORATORY Comment:2 liters NC Oxyhemoglobin Venous 24(L) 70 - 75 % 09/12/2024 3:44 PM NURSERY LABORER [facility] LAB[facility]ATORY O2 Sat, Venous 24.6(L) 70.0 - 75.0 % 09/12/2024 3:44 PM NURSERY LABORER [facility] LABORATORY Blood, venous BLOOD SPECIMEN / Unknown Venipuncture / Unknown 09/12/2024 3:20 PM NURSERY LABORER 09/12/2024 3:39 PM NURSERY LABORER Narrative [facility] LABORATORY - 09/12/2024 3:44 PM NURSERY LABORER In healthy individuals, oxyhemoglobin (O2Hb) and oxygen saturation (SO2) are approximately equal. In the presence of dyshemoglobins, oxyhemoglobin can be considerably lower than oxygen saturation. Smita Calderon MD LAB - BLOOD ORDE RABLES Final Result RH LABORATORY [facility] [address] Lab (1st floor, no room number) [place] [address] * Blood Culture Peripheral Blood (09/12/2024 3:20 PM NURSERY LABORER) Only the most recent of2 resultswithin the time period is included. Culture No Growth 09/17/2024 6:16 PM NURSERY LABORER [facility] Blood BLOOD SPECIMEN / Unknown Venipuncture / Unknown 09/12/2024 3:20 PM NURSERY LABORER 09/12/2024 3:39 PM NURSERY LABORER Smita Calderon MD LAB - MICRO GENE RAL ORDERABLES Final Result [facility]ORAT[facility] Inf. Diseases Diag. Lab [address] [facility] [place] [address], [facility] * Extra Red Top Tube (09/12/2024 2:11 PM NURSERY LABORER) Hold Specimen [facility] 09/12/2024 3:16 PM NURSERY LABORER RH LABORATORY Blood BLOOD SPECIMEN / Unknown Venipuncture / Unknown 09/12/2024 2:11 PM NURSERY LABORER 09/12/2024 2:15 PM NURSERY LABORER us Smita Calderon MD LAB - BLOOD ORDE JESSICA Final Result [facility] [address] Lab (1st floor, no room number) [place] [id number], [facility] * Extra Blue Top Tube (09/12/2024 2:11 PM NURSERY LABORER) Hold Specimen [facility] 09/12/2024 3:16 PM NURSERY LABORER [facility] LABORATORY Blood BLOOD SPECIMEN / Unknown Venipuncture / Unknown 09/12/2024 2:11 PM NURSERY LABORER 09/12/2024 2:15 PM NURSERY LABORER us Smita Calderon MD LAB - BLOOD ORDE JESSICA Final Result Performing Organization Address [facility] Co de Phone Number [facility] [address] Lab (1st floor, no room number) [address] * RBC and Platelet Morphology (09/12/2024 2:11 PM NURSERY LABORER) [facility] RBC Morphology Confirmed RBC Indices 09/12/2024 3:22 PM NURSERY LABORER [facility] LABORATORY Platelet Assessment Automated Count Confirmed. Platelet morphology is normal. Automated Count Confirmed. Platelet morphology is normal. [facility] 09/12/2024 3:22 PM NURSERY LABORER [facility] LABORATORY Blood BLOOD SPECIMEN / Unknown Venipuncture / Unknown 09/12/2024 2:11 PM NURSERY LABORER 09/12/2024 2:15 PM NURSERY LABORER us Smita Calderon MD LAB - BLOOD ORDE JESSICA Final Result [facility] [address] Lab (1st floor, no room number) [place] [address], [facility] * (ABNORMAL) CBC with platelets and differential (09/12/2024 2:11 PM NURSERY LABORER) [facility] Signature WBC Count 6.7 4.0 - 11.0 10e3/uL 09/12/2024 3:22 PM NURSERY LABORER [facility] LABORATORY RBC Count 5.61 4.40 - 5.90 10e6/uL 09/12/2024 3:22 PM NURSERY LABORER [facility] LABORATORY Hemoglobin 14.5 13.3 - 17.7 g/dL 09/12/2024 3:22 PM NURSERY LABORER RH LABORATORY Hematocrit 43.1 40.0 - 53.0 % 09/12/2024 3:22 PM NURSERY LABORER [facility] LABORATORY MCV 77(L) 78 - 100 fL 09/12/2024 3:22 PM NURSERY LABORER RH LABORATORY MCH 25.8(L) 26.5 - 33.0 pg 09/12/2024 3:22 PM NURSERY LABORER RH LABORATORY MCHC 33.6 31.5 - 36.5 g/dL 09/12/2024 3:22 PM NURSERY LABORER RH LABORATORY RDW 13.6 10.0 - 15.0 % 09/12/2024 3:22 PM NURSERY LABORER RH LABORATORY Platelet Count 256 150 - 450 10e3/uL 09/12/2024 3:22 PM NURSERY LABORER [facility] % Neutrophils 79 % 09/12/2024 3:22 PM NURSERY LABORER [facility] % Lymphocytes 9 % 09/12/2024 3:22 PM NURSERY LABORER [facility] % Monocytes 10 % 09/12/2024 3:22 PM NURSERY LABORER [facility] % Eosinophils 0 % 09/12/2024 3:22 PM NURSERY LABORER [facility] LAB[facility] % Basophils 0 % 09/12/2024 3:22 PM NURSERY LABORER [facility] LAB[facility] % Immature Granulocytes 2 % 09/12/2024 3:22 PM NURSERY LABORER [facility] LABORATORY NRBCs per 100 WBC 0 <1 /100 025 3:22 PM NURSERY LABORER RH LABORATORY Absolute Neutrophils 5.3 1.6 - 8.3 10e3/uL 09/12/2024 3:22 PM NURSERY LABORER [facility] LAB[facility]AT[facility] Absolute Lymphocytes 0.6(L) 0.8 - 5.3 10e3/uL 09/12/2024 3:22 PM NURSERY LABORER [facility] LAB[facility]AT[facility] Absolute Monocytes 0.7 0.0 - 1.3 10e3/uL 09/12/2024 3:22 PM NURSERY LABORER [facility] LAB[facility]ATORY Absolute Eosinophils 0.0 0.0 - 0.7 10e3/uL 09/12/2024 3:22 PM NURSERY LABORER [facility] LAB[facility]AT[facility] Absolute Basophils 0.0 0.0 - 0.2 10e3/uL 09/12/2024 3:22 PM NURSERY LABORER [facility] LAB[facility]ATORY Absolute Immature Granulocytes 0.1 <=0.4 10e3/uL 09/12/2024 3:22 PM NURSERY LABORER [facility] LABORATORY Absolute NRBCs 0.0 10e3/uL 09/12/2024 3:22 PM NURSERY LABORER RH LABORATORY Blood BLOOD SPECIMEN / Unknown Venipuncture / Unknown 09/12/2024 2:11 PM NURSERY LABORER 09/12/2024 2:15 PM NURSERY LABORER Smita Calderon MD LAB - BLOOD ORDE JESSICA Final Result LABORATORY [facility] [address] Lab (1st floor, no room number) [place] [address] * (ABNORMAL) D dimer quantitative (09/12/2024 2:11 PM NURSERY LABORER) [facility] D-Dimer Quantitative 0.75(H) 0.00 - 0.50 ug/mL FEU 09/12/2024 2:29 PM NURSERY LABORER RH LABORATORY Blood BLOOD SPECIMEN / Unknown Venipuncture / Unknown 09/12/2024 2:11 PM NURSERY LABORER 09/12/2024 2:15 PM NURSERY LABORER Narrative [facility] LABORATORY - 09/12/2024 2:29 PM NURSERY LABORER This D-dimer assay is intended for use in conjunction with a clinical pretest probability assessment model to exclude pulmonary embolism (PE) and deep venous thrombosis (DVT) in outpatients suspected of PE or DVT. The cut-off value is 0.50 ug/mL FEU. us Smita Calderon MD LAB - BLOOD ORDE JESSICA Final Result LABORATORY [facility] [address] Lab (1st floor, no room number) [place] [address] * XR Chest 2 Views (09/12/2024 1:52 PM NURSERY LABORER) Anatomical Region Laterality Modality Chest Computed Radiogr aphy 09/12/2024 1:52 PM NURSERY LABORER Impressions 09/12/2024 1:55 PM NURSERY LABORER IMPRESSION: Patchy infiltrates in the mid and lower lungs bilaterally typical of bilateral pneumonia. Narrative 09/12/2024 1:55 PM NURSERY LABORER EXAM: XR CHEST 2 VIEWS LOCATION: [facility] DATE: 09/12/2024 INDICATION: shortness of breath, tachypneic COMPARISON: None. Procedure Note Ed Joseph MD - 09/12/2024 EXAM: XR CHEST 2 VIEWS LOCATION: [facility] DATE: 09/12/2024 INDICATION: shortness of breath, tachypneic COMPARISON: None. IMPRESSION: Patchy infiltrates in the mid and lower lungs bilaterallytypical of bilateral pneumonia. Smita Calderon MD IMG DIAGNOSTIC I MAGING ORDERABLES Final Result * EKG 12-lead, tracing only (09/12/2024 1:39 PM NURSERY LABORER) Systolic Blood Pressure mmHg RADIOLOGY RESULTS Diastolic Blood Pressure mmHg RADIOLOGY RESULTS Ventricular Rate 88 BPM RAD IOLOGY RESULTS Atrial Rate 88 BPM RADIOLOG Y RESULTS MS Interval 144 ms RADIOLOG Y RESULTS QRS Duration 92 ms RADIOLO GY RESULTS QT 358 ms RADIOLOGY RESULTS QTc 433 ms RADIOLOGY RESULTS P [place] 10 degrees RADIOLOGY RESULTS R AXIS 31 degrees RADIOLOGY RESULTS T [place] 19 degrees RADIOLOGY RESULTS Interpretation ECG Sinus rhythm Normal ECG No previous ECGs available Confirmed by - EMERGENCY ROOM, PHYSICIAN ([id number]), pictures editor FIDEL MANDUJANO ([id number]) on 09/12/2024 1:42:55 PM RADIOLOGY RESULTS 09/12/2024 1:39 PM NURSERY LABORER 09/12/2024 1:42 PM NURSERY LABORER us Smita Calderon MD ECG ORDERABLES Edited Result - Final RADIOLOGY RESULTS * (ABNORMAL) Influenza A/B, RSV and SARS-CoV2 PCR (COVID-19) Nasopharyngeal (09/12/2024 1:25 PM NURSERY LABORER) Influenza A PCR Positive(A) Negative 09/12/2024 2:23 PM NURSERY LABORER [facility] LAB[facility]ATORY Influenza B PCR Negative Negative 09/12/2024 2:23 PM NURSERY LABORER [facility] LAB[facility]ATORY RSV PCR Negative Negative 09/12/2024 2:23 PM NURSERY LABORER [facility] LAB[facility] SARS CoV2 PCR Negative Negative 09/12/2024 2:23 PM NURSERY LABORER [facility] LAB[facility]ATORY Comment:NEGATIVE: SARS-CoV-2 (COVID-19) RNA not detected, presumed negative. Swab NASOPHARYNGEAL STRUCTURE / Unknown Non-blood Collection / Unknown 09/12/2024 1:25 PM NURSERY LABORER 09/12/2024 1:29 PM NURSERY LABORER Narrative [facility] LAB[facility]ATORY - 09/12/2024 2:23 PM NURSERY LABORER Testing was performed using the Xpert Xpress CoV2/Flu/RSV Assay on the ticketeaXpert Instrument. This test should be ordered for [...] management. This test was validated by the [facility]. These laboratories are certified under the Clinical Laboratory Improvement Amendments of 1988 (CLIA-88) as qualified to perfom high complexity laboratory testing. Smita Calderon MD LAB - MICRO GENE RAL ORDERABLES Final Result [facility] [address] [facility], no room number) [place] [address], [facility] * EKG Cardiac - HIM Scan (09/12/2024 12:00 AM NURSERY LABORER) 09/12/2024 us Provider Outside ECG ORDERABLES Final Result * Acute hepatitis panel (11/12/2011 7:25 AM CDT) Hepatitis A Antibody IgM Negative (Negative) 11/12/2011 9:27 AM CDT [facility] Hepatitis B Core Antibody IgM Negative (Negative) 11/12/2011 9:27 AM CDT [facility] Hepatitis B Surface Antigen Negative (Negative) 11/12/2011 9:27 AM CDT [facility] Hepatitis C Antibody Negative (Negative) 11/12/2011 9:27 AM CDT [facility] 11/12/2011 7:25 AM CDT 11/12/2011 7:00 AM CDT us David [facility] - BLOOD OR DERABLES Final Result Performing Organization Address [facility] Co de Phone Number [facility] [address] [address], [facility] [address] [address] * HIV Antigen Antibody Combo (11/12/2011 7:25 AM CDT) HIV Antigen Antibody Combo Negative 11/12/2011 8:23 AM CDT [facility] 11/12/2011 7:25 AM CDT 11/12/2011 7:00 AM CDT Narrative [facility] - 11/12/2011 8:23 AM CDT Effective 06/06/10, methodology is HIV 1/2 Antigen/Antibody Combination. Prior to 06/06/10, methodology was HIV 1/2 Antibody only. us David lucianoeva [facility] LAB - BLOOD OR DERABLES Final Result Performing Organization Address City/[facility] Co de Phone Number [facility] [address] [place] [address], [facility] [address] [place] [id number] from Last 3 Months or Most Recently Relevant to Health Maintenance Advance Directives For more information, please contact: [phone] * Full Code (Latest Code Status on [...] sunny nt/ legal decision maker Care Teams Executive Vice President Business Development Relationship Specialty Start Date End Date No Ref-Primary, Physician PCP - General 02/05/24
[2024-10-14 10:25] LABS: Basophils Absolute Auto 0.05 K/uL (0.00-0.30); Basophils Percent Auto 0.8 % (0.0-3.0); Eosinophils Absolute Auto 0.42 K/uL (0.00-0.50); Eosinophils Percent Auto 6.4 % (0.0-7.0); Hematocrit 43.8 % (37.0-53.0); Hemoglobin* 14.1 gm/dL (13.5-17.5); Immature Granulocytes Abs Auto 0.03 K/uL (0.00-0.30); Immature Granulocytes Pct Auto 0.5 %; Mean Corpuscular HGB Conc 32 gm/dL (32-36); Mean Corpuscular Hemoglobin 26 pg (26-34); Mean Corpuscular Volume 80 fL (80-100); Monocytes Percent Auto 11.8 % (0.0-11.0); Neutrophils Percent Auto 65.5 % (42.0-72.0); Platelet Count* 282 K/uL (140-440); RDW Coefficient of Variation % 14.8 % (11.5-15.5); Red Blood Count 5.46 m/uL (4.30-5.90); White Blood Count* 6.55 K/uL (4.50-11.00)
[2024-10-14 10:35] LABS: Slide Review Reflex No
[2024-10-14 10:41] LABS: Chloride* 98 mmol/L (96-114)
[2024-10-14 10:42] LABS: Albumin* 4.5 g/dL (3.3-5.0); Potassium* 3.5 mmol/L (3.6-5.1); Sodium* 137 mmol/L (135-149)
[2024-10-14 10:44] LABS: Blood Urea Nitrogen* 7 mg/dL (5-24); Creatinine* 0.7 mg/dL (0.5-1.5); Est. Creatinine Clearance* 167.99; Estimated Glomerular Filt Rate 122 ml/min
[2024-10-14 10:45] LABS: Alanine Aminotransferase* 399 U/L (4-50); Alkaline Phosphatase* 329 U/L (40-150); Anion Gap 14 mEq/L (7-15); Aspartate Amino Transferase* 211 U/L (12-35); Bilirubin Direct* 5.8 mg/dL (0.0-0.5); Bilirubin Total* 7.2 mg/dL (0.1-1.5); Calcium* 8.3 mg/dL (8.4-10.6); Carbon Dioxide* 25 mmol/L (20-32); D Dimer Quantitative* 2.63 ug/ml (0.00-0.50); Glucose* 96 mg/dL (60-115); Total Protein* 7.5 g/dL (6.0-8.3)
[2024-10-14 10:48] LABS: C Reactive Protein* 2.7 mg/dL (0.5-1.0)
[2024-10-14 10:53] LABS: Lipase* 2688 U/L (23-300)
[2024-10-14 10:58] LABS: Troponin I* < 0.01 ng/mL (0.01-0.04)
[2024-10-14] MEDS: PIPERACILLIN/TAZOBACTAM 4.5 GM in 0.9 % SODIUM CHLORIDE Mini-bag 100 ML IVPB (11:47)
[2024-10-14] MEDS: 0.9 % SODIUM CHLORIDE 500 ML 500 ML IV (11:47)
[2024-10-14] MEDS: 0.9 % SODIUM CHLORIDE 1000 ml 1,000 ML IV (13:09)
== END 2024-10-14 15:38 | disposition home or self-care (01) ==
PROVIDERS: Emergency Provider Family Medicine
DX: K80.50 Calculus of bile duct without cholangitis or cholecystitis without obstruction (principal); K85.90 Acute pancreatitis without necrosis or infection, unspecified
CPT/HCPCS: 36415; 74177; 76705; 80048; 80076; 83690; 84484; 85025; 85379; 86140; 93005; 96365; 99284; 99285; J2543; J7030; Q9967